=== PATIENT | female | born 1935 | race Caucasian/White ===

== ENCOUNTER 2022-08-10 18:33 | Emergency (ER) | payer MEDICARE, BC, SELFPAY ==
[2022-08-10] VITALS (16 sets, daily range): BP systolic 128–182; BP diastolic 83–109; PULSE 85–97; RESP 18; TEMP 36.3; O2SAT 94–97; BMI 26.6
--- NOTE | 2022-08-10 19:15 | ED.GENADULT ---
HPI - General Adult General Time Seen by Provider: 19:15 Date Seen: 08/10/22 Chief complaint: Cough Stated complaint: Covid+ Time Seen by Provider: 08/10/22 19:02 Source: patient and RN notes reviewed Mode of arrival: ambulatory Limitations: no limitations History of Present Illness HPI narrative: Patient is an 86-year-old female coming in with concerns of mucus production, coughing, positivity for COVID. She started with cough and sore throat Sunday night. Sunday morning she tested negative, Sunday night she actually tested positive. She contacted her clinic and they sent in a prescription for Paxil of it. She started this Sunday per her report but she tells me she has only taken 3 doses. That would actually have her starting the medicine yesterday on Sunday. She thinks maybe that this is correct. In any event she has only taken 3 doses, has not taken the evening dose. She has had no fevers with it. She is not short of breath. She admits to postnasal drainage that was problematic even before COVID. It sounds as if she has had some chronic postnasal drainage. She is having difficulty eating due to her sore throat. She is still drinking some. Related Data Previous Rx's Medication Instructions Recorded atenolol 25 mg tablet 25 mg PO QDAY #30 tabs 12/26/21 hydrochlorothiazide 25 mg tablet 25 mg PO QDAY #30 tabs 12/26/21 lisinopril 40 mg tablet 40 mg PO QDAY #30 tabs 12/26/21 pravastatin 20 mg tablet 20 mg PO .HS #30 tabs 01/10/22 Allergies Allergy/AdvReac Type Severity Reaction Status Date / Time Sulfa (Sulfonamide Allergy Severe Verified 08/10/22 18:56 Antibiotics) Review of Systems Status of ROS: Reports: 10 or more systems reviewed and unremarkable except as noted in History and below Narrative: She does tell me that she recently had an EKG and stress test that she believes to have been fine. [facility] Social History Smoking Status: Never smoker Do you use any of these nicotine containing products: None How often do you have a drink containing alcohol: 2-4 times a month AUDIT-C Alcohol total score: 2 Non-prescribed substance use: denies use Exam Const: Vital Signs, click to edit/add: Vital Signs - 24 hr 08/10/22 18:54 08/10/22 19:29 08/10/22 19:17 Temperature 97.3 F L Pulse Rate 91 Pulse Rate [Pulse Oximeter] 96 Respiratory Rate 18 Blood Pressure Blood Pressure [Ri ght Upper Arm] 128/84 Pulse Oximetry 96 96 95 Oxygen Delivery Me thod Room Air 08/10/22 19:46 08/10/22 19:47 08/10/22 19:49 Temperature Pulse Rate 92 97 92 Pulse Rate [Pulse Oximeter] Respiratory Rate Blood Pressure 182/104 H 165/96 H Blood Pressure [Ri ght Upper Arm] Pulse Oximetry 96 97 95 Oxygen Delivery Me thod 08/10/22 19:50 08/10/22 20:00 08/10/22 20:01 Temperature Pulse Rate 93 91 92 Pulse Rate [Pulse Oximeter] Respiratory Rate Blood Pressure 167/109 H Blood Pressure [Ri ght Upper Arm] Pulse Oximetry 96 97 96 Oxygen Delivery Me thod 08/10/22 20:15 08/10/22 20:30 08/10/22 20:32 Temperature Pulse Rate 88 92 95 Pulse Rate [Pulse Oximeter] Respiratory Rate Blood Pressure 155/86 H Blood Pressure [Ri ght Upper Arm] Pulse Oximetry 95 96 96 Oxygen Delivery Me thod 08/10/22 20:45 08/10/22 21:00 08/10/22 21:01 Temperature Pulse Rate 85 89 86 Pulse Rate [Pulse Oximeter] Respiratory Rate Blood Pressure 162/83 H Blood Pressure [Ri ght Upper Arm] Pulse Oximetry 96 96 94 Oxygen Delivery Me thod 08/10/22 21:15 Temperature Pulse Rate 90 Pulse Rate [Pulse Oximeter] Respiratory Rate Blood Pressure Blood Pressure [Ri ght Upper Arm] Pulse Oximetry 96 Oxygen Delivery Me thod Documenting provider has reviewed patient's vital signs: yes Common normals: no apparent distress, average body habitus, oriented x3, no limitations, healthy appearing and alert General appearance: cooperative, comfortable, well kempt and well developed Other: Can hear upper airway mucus. She is still able to speak in complete sentences, no hoarseness that I note. HENMT: Common normals: normocephalic, head/scalp atraumatic, hearing grossly normal bilaterally and external ears normal Head and scalp: normocephalic and atraumatic External ear: external ears normal Eye: Common normals: PERRL, EOMs intact bilaterally, conjunctivae normal and no scleral icterus Conjunctiva: conjunctiva(e) normal Pupil: PERRL Neck & C-Spine: Common normals: full ROM, no lymphadenopathy, supple, no meningeal signs, no JVD and thyroid normal Thyroid: thyroid normal Resp: Common normals: normal respiratory effort, no retractions, no use of accessory muscles and clear to auscultation bilaterally Auscultation: clear to auscultation bilaterally Cardio: Common normals: no JVD, regular rate, regular rhythm, S1 normal heart sound, S2 normal heart sound, no gallops, no clicks and no murmurs Rate: regular rate Rhythm: regular rhythm Heart sounds: S1 normal and S2 normal GI: Common normals: Normal to inspection, nondistended, normoactive bowel sounds present Extremity: Other: No peripheral edema. Neuro: Common normals: oriented x3 Sensorium/orientation: alert Meningeal signs: no meningeal signs Psych: Appearance: well kempt Course Course Hospital Course: She is on pulse oximetry an oxygenating in the mid 90s, 95-96% when I was in with her. I have pointed this out to her that that is reassuring. Her lungs are actually clear. Sounds like she is maybe having more postnasal drainage and mucus from the sinuses. Will check some baseline lab work, get a portable chest x-ray on her. We maybe just need to make some recommendations for symptomatic relief for her. Will ensure stability while she is here with monitoring of her pulse oximetry. Reevaluation(s) Reevaluation #1: Reviewed with Osmel and her whom is now here that her chest x-ray is clear, she show no hypoxia. Her white count is normal. Unfortunately the chemistry analyzer went down and I will not have the rest of her labs back for indefinite amount of time. They are aware that we will contact them if there is anything concerning. She has a nasal spray at home given to her her from her doctor, recommend them trying this. We discussed [id number] throat sprays, lozenges. Her may run to the pharmacy and get this. Baseline I do recommend Tylenol. Time: 21:19 Vital Signs Vital signs: Initial Vital Signs Temperature 97.3 F L 08/10/22 18:54 Temperature Source Temporal Artery Scan 08/10/22 18:54 Pulse Rate 96 08/10/22 18:54 Pulse Rhythm Regular 08/10/22 18:54 Pulse Strength 3+ Normal 08/10/22 18:54 Respiratory Rate 18 08/10/22 18:54 Blood Pressure 128/84 08/10/22 18:54 Blood Pressure Mean 98 08/10/22 18:54 Blood Pressure Position Sitting 08/10/22 18:54 Pulse Oximetry 96 08/10/22 18:54 Oxygen Delivery Method Room Air 08/10/22 18:54 Vital Signs Temperature 97.3 F L 08/10/22 18:54 Pulse Rate 96 08/10/22 18:54 Respiratory Rate 18 08/10/22 18:54 Blood Pressure 128/84 08/10/22 18:54 Pulse Oximetry 96 08/10/22 18:54 Oxygen Delivery Method Room Air 08/10/22 18:54 Temperature 97.3 F L 08/10/22 18:54 Pulse Rate 90 08/10/22 21:15 Respiratory Rate 18 08/10/22 18:54 Blood Pressure 162/83 H 08/10/22 21:01 Pulse Oximetry 96 08/10/22 21:15 Oxygen Delivery Method Room Air 08/10/22 18:54 Medical Decision Making Lab Data Lab results reviewed: Yes I reviewed the patient's lab results Labs: Lab Results 08/10/22 Range/Units 19:38 WBC 8.62 (4.50-11.00) K/uL RBC 4.65 (4.00-5.20) m/uL Hgb 14.6 (12.0-16.0) gm/dL Hct 42.8 (33.0-51.0) % MCV 92 (80-100) fL MCH 31 (26-34) pg MCHC 34 (32-36) gm/dL RDW Coeff of Kaylynn 12.7 (11.5-15.5) % Plt Count 242 (140-440) K/uL Neut % (Auto) 73.7 H (42.0-72.0) % Lymph % (Auto) 16.6 L (20-44) % [place] % (Auto) 8.9 (0.0-11.0) % Eos % (Auto) 0.5 (0.0-7.0) % Baso % (Auto) 0.2 (0.0-3.0) % Neut # (Auto) 6.40 (1.7-7.0) K/uL Lymph # (Auto) 1.40 (0.90-2.90) K/uL [place] # (Auto) 0.80 (0.00-0.90) K/UL Eos # (Auto) 0.04 (0.00-0.50) K/uL Baso # (Auto) 0.02 (0.00-0.30) K/uL Sodium 131 L (135-149) mmol/L Potassium 3.7 (3.6-5.1) mmol/L Chloride 97 (96-114) mmol/L Carbon Dioxide 23 (20-32) mmol/L BUN 16 (7-30) mg/dL Creatinine 0.9 (0.5-1.5) mg/dL Estimated Creat Clear 33.41 Estimated GFR 62 ml/min Glucose 121 H (60-115) mg/dL Calcium 10.4 (8.4-10.6) mg/dL Total Bilirubin 0.7 (0.1-1.5) mg/dL AST 32 (12-35) U/L ALT 22 (4-35) U/L Alkaline Phosphatase 93 (40-150) U/L C-Reactive Protein 6.7 H (0.5-1.0) mg/dL Total Protein 7.8 (6.0-8.3) g/dL Albumin 4.5 (3.3-5.0) g/dL Imaging Data Chest x-ray: Attestation: I have reviewed the pertinent imaging results. My impression: No acute infiltrate or any evidence any COVID pneumonia on my preliminary review. Radiologist's impression: Patient: KHOI HANSON Facility:?[facility] Patient ID:?[id number] Site Patient ID:?[id number]. Site :?[id number] Study:?XRay Chest PORTABLE-08/10/2022 7:48:00 PM Ordering Physician:Melissa Damon Final Report: INDICATION: Cough. COMPARISON: February 22, 2011. TECHNIQUE: Single-view chest radiograph. FINDINGS: Normal cardiomediastinal contours. Clear lungs. No significant pleural effusion or pneumothorax. Impression : No acute cardiopulmonary abnormality. Dictated by Nolan Sosa MD @ 08/10/2022 7:52:07 PM (Electronic Signature) Critical Care Time Critical Care Time Critical Care Time: No Discharge Plan Discharge Clinical Impression: COVID-19 Condition: Stable Instructions: COVID-19 (Coronavirus Disease 2019) (ED) Additional Instructions: Complete the Paxilovid. Can use Tylenol per bottle directions as needed for pain control, this should help your sore throat. Can use sviz-bje-ftgelpc lozenges, Mucinex, nasal steroid spray like Nasacort or Flonase to help with your symptoms. Should you develop increasing difficulty breathing, shortness of breath, chest pain in the context of COVID, do recommend re-evaluation. Activity Level: Activity as Tolerated Prescriptions: No Action lisinopril 40 mg tablet 40 mg PO QDAY Qty: 30 0RF atenolol 25 mg tablet 25 mg PO QDAY Qty: 30 0RF hydrochlorothiazide 25 mg tablet 25 mg PO QDAY Qty: 30 0RF pravastatin 20 mg tablet 20 mg PO .HS Qty: 30 0RF Follow Up/Referrals: Roseanne Copeland MD [Primary Care Provider] - Stand Alone Forms: [employer] Info Instructions
--- NOTE | 2022-08-10 19:23 | CRLHL7_ITS ---
For Patients: As a result of the Century Cures Act, medical imaging exams and procedure reports are released immediately into your electronic medical record. You may view this report before your referring provider. If you have questions, please contact your health care provider. INDICATION: Cough. COMPARISON: February 22, 2011. TECHNIQUE: Single-view chest radiograph. FINDINGS: Normal cardiomediastinal contours. Clear lungs. No significant pleural effusion or pneumothorax. Impression : No acute cardiopulmonary abnormality. Dictated by Nolan Sosa MD @ 08/10/2022 7:52:07 PM (Electronically Signed)
[2022-08-10 19:46] LABS: Basophils Absolute Auto 0.02 K/uL (0.00-0.30); Basophils Percent Auto 0.2 % (0.0-3.0); Eosinophils Absolute Auto 0.04 K/uL (0.00-0.50); Eosinophils Percent Auto 0.5 % (0.0-7.0); Hematocrit 42.8 % (33.0-51.0); Hemoglobin* 14.6 gm/dL (12.0-16.0); Immature Granulocytes Abs Auto 0.01 K/uL (0.00-0.30); Immature Granulocytes Pct Auto 0.1 %; Lymphocytes Percent Auto 16.6 % (20-44); Mean Corpuscular HGB Conc 34 gm/dL (32-36); Mean Corpuscular Hemoglobin 31 pg (26-34); Mean Corpuscular Volume 92 fL (80-100); Monocytes Percent Auto 8.9 % (0.0-11.0); Neutrophils Percent Auto 73.7 % (42.0-72.0); Platelet Count* 242 K/uL (140-440); RDW Coefficient of Variation % 12.7 % (11.5-15.5); Red Blood Count 4.65 m/uL (4.00-5.20); White Blood Count* 8.62 K/uL (4.50-11.00)
[2022-08-10 19:57] LABS: Slide Review Reflex No
[2022-08-10 21:41] LABS: Albumin* 4.5 g/dL (3.3-5.0); Chloride* 97 mmol/L (96-114)
[2022-08-10 21:42] LABS: Potassium* 3.7 mmol/L (3.6-5.1); Sodium* 131 mmol/L (135-149)
[2022-08-10 21:43] LABS: Creatinine* 0.9 mg/dL (0.5-1.5); Est. Creatinine Clearance* 33.41; Estimated Glomerular Filt Rate 62 ml/min
[2022-08-10 21:44] LABS: Alanine Aminotransferase* 22 U/L (4-35); Alkaline Phosphatase* 93 U/L (40-150); Aspartate Amino Transferase* 32 U/L (12-35); Bilirubin Total* 0.7 mg/dL (0.1-1.5); Blood Urea Nitrogen* 16 mg/dL (7-30); Carbon Dioxide* 23 mmol/L (20-32); Glucose* 121 mg/dL (60-115); Total Protein* 7.8 g/dL (6.0-8.3)
[2022-08-10 21:45] LABS: Calcium* 10.4 mg/dL (8.4-10.6)
[2022-08-10 21:47] LABS: C Reactive Protein* 6.7 mg/dL (0.5-1.0)
== END 2022-08-10 21:32 | disposition home or self-care (01) ==
PROVIDERS: Emergency Provider Family Medicine; PCP Internal Medicine
DX: U07.1 COVID-19 (principal)
CPT/HCPCS: 36415; 71045; 80053; 85025; 86140; 94761; 99283; 99284

== ENCOUNTER 2022-12-06 07:58 | Outpatient (CLI) | payer MEDICARE, BC, SELFPAY ==
--- NOTE | 2022-12-06 08:15 | CRLHL7_ITS ---
For Patients: As a result of the Century Cures Act, medical imaging exams and procedure reports are released immediately into your electronic medical record. You may view this report before your referring provider. If you have questions, please contact your health care provider. INDICATION: Low back pain. COMPARISON: 09/27/2021. TECHNIQUE: Sagittal T1, T2, and STIR sequences. Axial T1 and T2 weighted sequences. FINDINGS: Degenerative grade 1 anterolisthesis of L4 on L5 measures approximately 5 mm. Otherwise, normal alignment. No fractures. No vertebral body loss of height. No evidence injury. No suspicious osseous lesions. Normal conus terminates at L1. T12-L1 L1-2: No spinal canal neural foraminal narrowing. L2-3: Disc degeneration. No narrowing of the spinal canal. Mild narrowing of bilateral foramina. L3-4: Disc degeneration. Diffuse disc bulge. No narrowing of spinal canal. Facet arthropathy results in mild right and [id number]-[id number] left neural foraminal narrowing. Moderate facet arthropathy. L4-5: Grade 1 anterolisthesis. Disc degeneration and unroofed posterior disc bulge. Mild narrowing of spinal canal. No neural foraminal narrowing. Moderate facet arthropathy. L5-S1: Disc degeneration. No narrowing of spinal canal. No impingement of the traversing S1 nerve roots. No neural foraminal narrowing. Mild facet arthropathy. Degenerative changes of the SI joints. IMPRESSION: 1. Degenerative anterolisthesis of L4 on L5. Otherwise normal alignment. No fractures 2. Lumbar spondylosis. 3. At L3-4, mild right and [id number] left neural foraminal narrowing. 4. At L4-5, mild narrowing of spinal canal 5. No spinal canal or neural foraminal narrowing at remaining levels Dictated by Lester Camilo MD @ 12/07/2022 9:29:12 AM (Electronically Signed)
== END 2022-12-06 07:59 | disposition home or self-care (01) ==
LOC: MRI 07:59
PROVIDERS: PCP Family Medicine; Visit Provider Orthopaedic Surgery
DX: M54.50 Low back pain, unspecified (principal); M47.896 Other spondylosis, lumbar region; M51.26 Other intervertebral disc displacement, lumbar region
CPT/HCPCS: 72148

== ENCOUNTER 2023-03-11 08:14 | Emergency (ER) | payer MEDICARE, BC, SELFPAY ==
[2023-03-11] VITALS (14 sets, daily range): BP systolic 144–193; BP diastolic 82–116; PULSE 70–93; RESP 18; TEMP 36.2; O2SAT 90–99; BMI 26.6
--- NOTE | 2023-03-11 08:54 | CRLHL7_ITS ---
For Patients: As a result of the Century Cures Act, medical imaging exams and procedure reports are released immediately into your electronic medical record. You may view this report before your referring provider. If you have questions, please contact your health care provider. INDICATION: Fluid retention.. TECHNIQUE: Ultrasound venous duplex bilateral lower extremity. Compression venous exam was performed using montoya-scale, color Doppler, and spectral Doppler analysis. COMPARISON: None. FINDINGS: Deep veins: Sonographic imaging demonstrates the bilateral common femoral, deep femoral, superficial femoral, popliteal, peroneal, and pposterior tibial veins to be fully compressible with normal color Doppler blood flow. Superficial veins: Greater saphenous vein is fully compressible. No popliteal cyst. IMPRESSION: No sign of lower extremity deep venous thrombosis. Dictated by Zora Andrews MD @ 03/11/2023 11:06:38 AM (Electronically Signed)
--- NOTE | 2023-03-11 08:54 | CRLHL7_ITS ---
For Patients: As a result of the Cures Act, medical imaging exams and procedure reports are released immediately into your electronic medical record. You may view this report before your referring provider. If you have questions, please contact your health care provider. INDICATION: Fluid retention. TECHNIQUE: Chest 1 views. COMPARISON: 08/10/2022. FINDINGS: Normal cardiomediastinal silhouette and pulmonary vasculature. Atherosclerotic aortic calcifications. Lungs are well inflated and clear. No focal consolidation, pleural effusion, or pneumothorax. No acute osseous abnormality. IMPRESSION: No acute cardiopulmonary abnormality identified. Dictated by Zora Andrews MD @ 03/11/2023 9:36:24 AM (Electronically Signed)
--- NOTE | 2023-03-11 08:55 | ED_ITS ---
HPI - General Adult General Time Seen by Provider: 08:55 Date Seen: 03/11/23 Chief complaint: Lower Extremity Swelling Stated complaint: swelling in legs Time Seen by Provider: 03/11/23 08:18 Source: patient Mode of arrival: ambulatory Limitations: no limitations History of Present Illness HPI narrative: Patient is a 87 year white female without any cardiac history other than essential hypertension and hyperlipidemia, who presents with lower extremity swelling right greater than left over the last few days. She occasionally gets intermittent swelling her legs and use been a couple of days a goes away, this is last just a little longer. They did take a trip to [place] recently, but did not feel that was an issue. She is not on any blood thinners. She has not had any DVTs or history of congestive heart failure by chart report. Patient does have history of hypertension she is on hydrochlorothiazide atenolol and lisinopril, she also has elevated cholesterol she is on pravastatin. Also takes famotidine. Related Data Home Medications Medication Instructions Recorded Confirmed famotidine 20 mg tablet mg PO 03/11/23 Previous Rx's Medication Instructions Recorded atenolol 25 mg tablet 25 mg PO QDAY #30 tabs 12/26/21 hydrochlorothiazide 25 mg tablet 25 mg PO QDAY #30 tabs 12/26/21 lisinopril 40 mg tablet 40 mg PO QDAY #30 tabs 12/26/21 pravastatin 20 mg tablet 20 mg PO .HS #30 tabs 01/10/22 furosemide 20 mg tablet (Lasix) 20 mg PO DAILY #3 tabs 03/11/23 Allergies Allergy/AdvReac Type Severity Reaction Status Date / Time Sulfa (Sulfonamide Allergy Mild Rash Verified 03/11/23 08:39 Antibiotics) Review of Systems Status of ROS: Reports: 6 or more systems reviewed and unremarkable except as noted in History and below Narrative: Patient is not more short of breath lying down, does not have any dyspnea on exertion. PFSH PFSH Social History Smoking Status: Never smoker Do you use any of these nicotine containing products: None Second hand tobacco smoke exposure: No How often do you have a drink containing alcohol: 2-3 times a week AUDIT-C Alcohol total score: 3 Non-prescribed substance use: denies use Exam Narrative: Exam Narrative: Objective: Patient is very hard of hearing Vital signs show elevated blood pressure 193/116, O2 sat 98% on room air HEENT is unremarkable facial asymmetry neck is supple Chest is clear no rales or wheezing Heart rhythm regular with occasional ectopic beat 2/6 systolic ejection murmur Abdomen benign soft Extremities show trace to 1+ edema in the right pretibial tibial area and douglas there is no warmth erythema, slightly less edema probably just trace on the left lower extremity. Negative Homans sign bilaterally. Good peripheral perfusion noted. Normal neurologic function. Const: Vital Signs, click to edit/add: Vital Signs - 24 hr 03/11/23 08:34 03/11/23 08:44 03/11/23 08:45 Temperature 97.2 F L Pulse Rate 75 78 Pulse Rate [Pulse Oximeter] 85 Respiratory Rate 18 Blood Pressure Blood Pressure [Ri ght Upper Arm] 193/116 H Pulse Oximetry 98 98 96 Oxygen Delivery Me thod Room Air Room Air 03/11/23 08:54 03/11/23 09:00 03/11/23 09:02 Temperature Pulse Rate 72 Pulse Rate [Pulse Oximeter] Respiratory Rate Blood Pressure 144/110 H Blood Pressure [Ri ght Upper Arm] Pulse Oximetry 98 97 Oxygen Delivery Me thod 03/11/23 09:15 03/11/23 09:30 03/11/23 09:35 Temperature Pulse Rate 70 83 74 Pulse Rate [Pulse Oximeter] Respiratory Rate Blood Pressure Blood Pressure [Ri ght Upper Arm] Pulse Oximetry 99 90 99 Oxygen Delivery Me thod Room Air 03/11/23 09:45 03/11/23 10:03 03/11/23 10:15 Temperature Pulse Rate 70 84 93 Pulse Rate [Pulse Oximeter] Respiratory Rate Blood Pressure Blood Pressure [Ri ght Upper Arm] Pulse Oximetry 97 95 Oxygen Delivery Me thod 03/11/23 10:30 03/11/23 10:32 Temperature Pulse Rate 72 74 Pulse Rate [Pulse Oximeter] Respiratory Rate Blood Pressure 159/82 H Blood Pressure [Ri ght Upper Arm] Pulse Oximetry 96 97 Oxygen Delivery Me thod Course Vital Signs Vital signs: Initial Vital Signs Temperature 97.2 F L 03/11/23 08:34 Temperature Source Temporal Artery Scan 03/11/23 08:34 Pulse Rate 85 03/11/23 08:34 Respiratory Rate 18 03/11/23 08:34 Blood Pressure 193/116 H 03/11/23 08:34 Blood Pressure Mean 141 H 03/11/23 08:34 Blood Pressure Position Supine 03/11/23 08:34 Pulse Oximetry 98 03/11/23 08:34 Oxygen Delivery Method Room Air 03/11/23 08:34 Vital Signs Temperature 97.2 F L 03/11/23 08:34 Pulse Rate 85 03/11/23 08:34 Respiratory Rate 18 03/11/23 08:34 Blood Pressure 193/116 H 03/11/23 08:34 Pulse Oximetry 98 03/11/23 08:34 Oxygen Delivery Method Room Air 03/11/23 08:34 Temperature 97.2 F L 03/11/23 08:34 Pulse Rate 74 03/11/23 10:32 Respiratory Rate 18 03/11/23 08:34 Blood Pressure 159/82 H 03/11/23 10:32 Pulse Oximetry 97 03/11/23 10:32 Oxygen Delivery Method Room Air 03/11/23 09:30 Medical Decision Making MDM Narrative Medical decision making narrative: [age] white female with primary symptoms of just lower extremity swelling right greater than left. Some recent travel but not of much duration. I think checking ultrasounds of her legs would be appropriate as well as a chest x-ray to rule out interstitial fluid, a proBNP, troponin, EKG cardiac cardiac monitor technician. I suspect the patient would benefit from some IV Lasix will do that 40 mg IV. Will check her electrolytes and labs. Disposition pending findings above. Addendum 10:46 a.m.. The patient's chest x-ray looks unremarkable by my read, EKG looks reassuring with normal sinus rhythm. This is again by my read. The patient's ultrasound of her lower extremities looks negative for clot or DVT. She does have a borderline elevated proBNP in the intermediate range. I think a couple of days of diuretic would be appropriate and will give her Lasix 20 mg daily to can add to her regular medications for 3 days. She should follow up with regular doctor at that time. Return to ED sooner problems or concerns, elevate legs, avoid salt intake. Lab Data Labs: Lab Results 03/11/23 03/11/23 Range/Units 09:15 09:15 WBC 8.66 (4.50-11.00) K/uL RBC 4.23 (4.00-5.20) m/uL Hgb 13.3 (12.0-16.0) gm/dL Hct 40.4 (33.0-51.0) % MCV 96 (80-100) fL MCH 31 (26-34) pg MCHC 33 (32-36) gm/dL RDW Coeff of Kaylynn 13.0 (11.5-15.5) % Plt Count 294 (140-440) K/uL Neut % (Auto) 75.4 H (42.0-72.0) % Lymph % (Auto) 14.4 L (20-44) % [place] % (Auto) 7.5 (0.0-11.0) % Eos % (Auto) 2.3 (0.0-7.0) % Baso % (Auto) 0.3 (0.0-3.0) % Neut # (Auto) 6.50 (1.7-7.0) K/uL Lymph # (Auto) 1.20 (0.90-2.90) K/uL [place] # (Auto) 0.60 (0.00-0.90) K/UL Eos # (Auto) 0.20 (0.00-0.50) K/uL Baso # (Auto) 0.03 (0.00-0.30) K/uL Abs Immat Gran (auto) 0.01 (0.00-0.30) K/uL Imm/Tot Granulo (auto) 0.1 % INR 0.92 (0.91-1.10) Sodium 132 L (135-149) mmol/L Potassium 4.0 (3.6-5.1) mmol/L Chloride 100 (96-114) mmol/L Carbon Dioxide 23 (20-32) mmol/L Anion Gap 9 (7-15) mEq/L BUN 12 (7-30) mg/dL Creatinine 0.7 (0.5-1.5) mg/dL Estimated Creat Clear 32.79 Estimated GFR 84 ml/min Glucose 90 (60-115) mg/dL Calcium 9.9 (8.4-10.6) mg/dL Total Bilirubin 1.0 (0.1-1.5) mg/dL Direct Bilirubin 0.0 (0.0-0.5) mg/dL AST 28 (12-35) U/L ALT 11 (4-35) U/L Alkaline Phosphatase 58 (40-150) U/L Troponin I < 0.01 L Cancelled (0.01-0.04) ng/mL C-Reactive Protein 1.9 H (0.5-1.0) mg/dL NT-Pro-B Natriuret Pep 709 pg/mL Total Protein 6.6 (6.0-8.3) g/dL Albumin 4.0 (3.3-5.0) g/dL Discharge Plan Discharge Clinical Impression: Swelling of both lower extremities Patient Disposition: Home w/ Parent or Adult Condition: Stable Additional Instructions: Continue same medications at home and we will add Lasix 1 pill a day for 3 days, then I would like you to see your regular doctor. Avoid salt intake as this may increase edema in your legs. There were no clots present in your legs and your blood work looked reasonable. Your EKG and heart studies look normal as well. Return to ED sooner as needed Prescriptions: New furosemide [Lasix] 20 mg tablet 20 mg PO DAILY Qty: 3 2RF No Action famotidine 20 mg tablet PO lisinopril 40 mg tablet 40 mg PO QDAY Qty: 30 0RF atenolol 25 mg tablet 25 mg PO QDAY Qty: 30 0RF hydrochlorothiazide 25 mg tablet 25 mg PO QDAY Qty: 30 0RF pravastatin 20 mg tablet 20 mg PO .HS Qty: 30 0RF Follow Up/Referrals: Kevin Mccoy MD [Primary Care Provider] - Stand Alone Forms: [employer] Info Instructions
[2023-03-11] MEDS: FUROSEMIDE 10 MG/ML inj 40 MG IV (09:15)
[2023-03-11 09:50] LABS: Basophils Absolute Auto 0.03 K/uL (0.00-0.30); Basophils Percent Auto 0.3 % (0.0-3.0); Chloride* 100 mmol/L (96-114); Eosinophils Percent Auto 2.3 % (0.0-7.0); Hematocrit 40.4 % (33.0-51.0); Hemoglobin* 13.3 gm/dL (12.0-16.0); Immature Granulocytes Abs Auto 0.01 K/uL (0.00-0.30); Immature Granulocytes Pct Auto 0.1 %; Lymphocytes Percent Auto 14.4 % (20-44); Mean Corpuscular HGB Conc 33 gm/dL (32-36); Mean Corpuscular Hemoglobin 31 pg (26-34); Mean Corpuscular Volume 96 fL (80-100); Monocytes Percent Auto 7.5 % (0.0-11.0); Neutrophils Percent Auto 75.4 % (42.0-72.0); Platelet Count* 294 K/uL (140-440); Red Blood Count 4.23 m/uL (4.00-5.20); Sodium* 132 mmol/L (135-149); White Blood Count* 8.66 K/uL (4.50-11.00)
[2023-03-11 09:53] LABS: Alanine Aminotransferase* 11 U/L (4-35); Alkaline Phosphatase* 58 U/L (40-150); Anion Gap 9 mEq/L (7-15); Aspartate Amino Transferase* 28 U/L (12-35); Blood Urea Nitrogen* 12 mg/dL (7-30); Carbon Dioxide* 23 mmol/L (20-32); Creatinine* 0.7 mg/dL (0.5-1.5); Est. Creatinine Clearance* 32.79; Estimated Glomerular Filt Rate 84 ml/min; Glucose* 90 mg/dL (60-115); Slide Review Reflex No; Total Protein* 6.6 g/dL (6.0-8.3)
[2023-03-11 09:54] LABS: Calcium* 9.9 mg/dL (8.4-10.6)
[2023-03-11 09:56] LABS: C Reactive Protein* 1.9 mg/dL (0.5-1.0)
[2023-03-11 10:06] LABS: NT Pro B Type NatriureticPept* 709 pg/mL; Troponin I* < 0.01 ng/mL (0.01-0.04)
[2023-03-11 10:18] LABS: INR 0.92 (0.91-1.10)
== END 2023-03-11 09:15 | disposition home or self-care (01) ==
PROVIDERS: Emergency Provider Family Medicine; PCP Family Medicine
DX: R60.9 Edema, unspecified (principal)
CPT/HCPCS: 36415; 71045; 80048; 80076; 83880; 84484; 85025; 85610; 86140; 93005; 93970; 94761; 96374; 99284; 99285; J1940

== ENCOUNTER 2023-03-14 06:42 | Emergency (ER) | payer MEDICARE, BC, SELFPAY ==
[2023-03-14 06:49] VITALS: BP 157/108; PULSE 120; RESP 16; TEMP 36.4; O2SAT 97
--- NOTE | 2023-03-14 07:13 | ED.GENADULT ---
HPI - General Adult General Chief complaint: Extremity Pain/Injury, Lower Stated complaint: R foot pain Time Seen by Provider: 03/14/23 07:12 History of Present Illness HPI narrative: starting Sunday with sore R foot on Sunday, was seen on for foot pain, pain has been getting worse each day and mobility has declined. denies fall or injury to foot. states she can 't walk on it due to pain. able to move toes 87-year-old woman here with complaint of right foot pain. She does not recall any particular injury. Was seen actually 3 days ago for foot pain and swelling. Initiated on Lasix. She does not typically have peripheral edema. No known heart failure. Was screened at that time also for DVT with ultrasound which was negative; this was done bilaterally. Imaging was remarkable only for a CRP of 1.9 my review of record. X-ray was also done of the chest which was unremarkable for fluid collection or evidence of heart failure. At this point is becoming increasingly painful to walk. No chest pain or shortness of breath. No fever. She does not recall any trauma. She had though earlier in the week been playing golf ambulating more. It is her understanding that gout was ?ruled out?. Does have a history of PMR. Related Data Home Medications Medication Instructions Recorded Confirmed famotidine 20 mg tablet mg PO 03/11/23 03/20/23 Previous Rx's Medication Instructions Recorded atenolol 25 mg tablet 25 mg PO QDAY #30 tabs 12/26/21 hydrochlorothiazide 25 mg tablet 25 mg PO QDAY #30 tabs 12/26/21 lisinopril 40 mg tablet 40 mg PO QDAY #30 tabs 12/26/21 pravastatin 20 mg tablet 20 mg PO .HS #30 tabs 01/10/22 celecoxib 100 mg capsule (Celebrex) 100 mg PO BID PRN pain #30 caps 03/14/23 Allergies Allergy/AdvReac Type Severity Reaction Status Date / Time Sulfa (Sulfonamide Allergy Mild Rash Verified 03/20/23 09:18 Antibiotics) Review of Systems Status of ROS: Reports: 6 or more systems reviewed and unremarkable except as noted in History and below [facility] Medical History Sprain of right wrist ?S63.501A - Unspecified sprain of right wrist, initial encounter (ICD-10) Sprain of left wrist ?S63.502A - Unspecified sprain of left wrist, initial encounter (ICD-10) Mild cognitive impairment (2020) ?G31.84 - Mild cognitive impairment of uncertain or unknown etiology (ICD-10) Irritable bowel syndrome ?K58.9 - Irritable bowel syndrome without diarrhea (ICD-10) Gout ?M10.9 - Gout, unspecified (ICD-10) Pain ?R52 - Pain, unspecified (ICD-10) Adenomatous polyp of colon ?D12.6 - Benign neoplasm of colon, unspecified (ICD-10) History of polymyalgia rheumatica ?Z87.39 - Personal history of other diseases of the musculoskeletal system and connective tissue (ICD-10) Polymyalgia ?M35.3 - Polymyalgia rheumatica (ICD-10) Spondylolisthesis at L4-L5 level ?M43.16 - Spondylolisthesis, lumbar region (ICD-10) Lumbar degenerative disc disease ?M51.36 - Other intervertebral disc degeneration, lumbar region (ICD-10) Scoliosis ?M41.9 - Scoliosis, unspecified (ICD-10) Osteoarthritis of right hip ?M16.11 - Unilateral primary osteoarthritis, right hip (ICD-10) Osteoarthritis of left hip ?M16.12 - Unilateral primary osteoarthritis, left hip (ICD-10) Osteoarthritis of left knee ?M17.12 - Unilateral primary osteoarthritis, left knee (ICD-10) Surgical History Status post blepharoplasty of both eyes (11/2010) ?Z98.890 - Other specified postprocedural states (ICD-10) History of dilation and curettage (2013) ?Z98.890 - Other specified postprocedural states (ICD-10) History of carpal tunnel surgery (07/10/19) ?Z98.890 - Other specified postprocedural states (ICD-10) History of bilateral cataract extraction (~08/2018) ?Z98.41 - Cataract extraction status, right eye (ICD-10) ?Z98.42 - Cataract extraction status, left eye (ICD-10) S/P ORIF (open reduction internal fixation) fracture (05/05/09) ?Z98.890 - Other specified postprocedural states (ICD-10) ?Z87.81 - Personal history of (healed) traumatic fracture (ICD-10) Social History Smoking Status: Never smoker Do you use any of these nicotine containing products: None Second hand tobacco smoke exposure: No How often do you have a drink containing alcohol: 2-3 times a week AUDIT-C Alcohol total score: 3 Non-prescribed substance use: denies use Exam Narrative: Exam Narrative: Very pleasant. NAD. Breathing easily. Hard of hearing. Skin is warm and dry. Lower extremities with 2+ edema starting at the right ankle and going distal in the foot. She is particularly tender to palpation on the plantar surface otherwise diffusely but not really about the ankle. Maybe a little darker on the plantar foot. Generally faintly erythematous with mild calor. This does not look to be cellulitic. Rotation of the ankle does not cause much increase in pain. She is well-perfused, warm. Const: Vital Signs, click to edit/add: Vital Signs - 24 hr 03/14/23 06:49 Temperature 97.6 F Pulse Rate [Pulse Oximeter] 120 H Respiratory Rate 16 Blood Pressure [Ri ght Upper Arm] 157/108 H Pulse Oximetry 97 Oxygen Delivery Me thod Room Air Documenting provider has reviewed patient's vital signs: yes Course Vital Signs Vital signs: Initial Vital Signs Temperature 97.6 F 03/14/23 06:49 Temperature Source Temporal Artery Scan 03/14/23 06:49 Pulse Rate 120 H 03/14/23 06:49 Respiratory Rate 16 03/14/23 06:49 Blood Pressure 157/108 H 03/14/23 06:49 Blood Pressure Mean 124 H 03/14/23 06:49 Blood Pressure Position Supine 03/14/23 06:49 Pulse Oximetry 97 03/14/23 06:49 Oxygen Delivery Method Room Air 03/14/23 06:49 Vital Signs Temperature 97.6 F 03/14/23 06:49 Pulse Rate 120 H 03/14/23 06:49 Respiratory Rate 16 03/14/23 06:49 Blood Pressure 157/108 H 03/14/23 06:49 Pulse Oximetry 97 03/14/23 06:49 Oxygen Delivery Method Room Air 03/14/23 06:49 Temperature 97.6 F 03/14/23 06:49 Pulse Rate 120 H 03/14/23 06:49 Respiratory Rate 16 03/14/23 06:49 Blood Pressure 157/108 H 03/14/23 06:49 Pulse Oximetry 97 03/14/23 06:49 Oxygen Delivery Method Room Air 03/14/23 06:49 Medical Decision Making MDM Narrative Medical decision making narrative: This seems to be more of an inflammatory/arthritic condition. Possible occult fracture. Can repeat CBC and CRP here. Would give ibuprofen and do x-ray. CBCs normal. CRP is notably elevated from last checked from 1.9 and now to 8.1. X-ray by my read looks to show loss of joint space about the metatarsal heads. Radiology over-read below Two views right foot. FINDINGS: BONES: No fracture. Flattening and sclerosis of the head of the 2nd metatarsal consistent with a Freiberg`s infraction. Diffusely low mineralization. No focal bone lesion. JOINT: Normal joint alignment. Joint spaces: Normal. Soft Tissues: Soft tissue swelling around the foot. No foreign body. IMPRESSION: Soft tissue swelling right foot. No radiographic findings of osteomyelitis. However these often take up to 2 weeks to manifest, and are difficult to assess in the setting of underlying osteopenia. I think this finding is consistent with appearance physically that it seems to be more of an inflamed joint issue. I spoke to Orthopedics about this case. Recommending isolation trying to limit flexion of the foot. Limited weight-bearing just due to pain. Will be placed in a walking boot. May need crutches or some other way of resting this foot. Follow-up with orthopedics. Uric acid levels also pending. See patient discharge plan Medical Records Medical records reviewed: Yes I reviewed the patient's medical records Lab Data Lab results reviewed: Yes I reviewed the patient's lab results Labs: Lab Results 03/14/23 03/14/23 Range/Units 07:37 09:50 WBC 9.78 (4.50-11.00) K/uL RBC 4.07 (4.00-5.20) m/uL Hgb 12.8 (12.0-16.0) gm/dL Hct 39.2 (33.0-51.0) % MCV 96 (80-100) fL MCH 31 (26-34) pg MCHC 33 (32-36) gm/dL RDW Coeff of Kaylynn 13.0 (11.5-15.5) % Plt Count 295 (140-440) K/uL Neut % (Auto) 80.5 H (42.0-72.0) % Lymph % (Auto) 11.3 L (20-44) % [place] % (Auto) 6.9 (0.0-11.0) % Eos % (Auto) 1.0 (0.0-7.0) % Baso % (Auto) 0.2 (0.0-3.0) % Neut # (Auto) 7.90 H (1.7-7.0) K/uL Lymph # (Auto) 1.10 (0.90-2.90) K/uL [place] # (Auto) 0.70 (0.00-0.90) K/UL Eos # (Auto) 0.10 (0.00-0.50) K/uL Baso # (Auto) 0.02 (0.00-0.30) K/uL Abs Immat Gran (auto) 0.01 (0.00-0.30) K/uL Imm/Tot Granulo (auto) 0.1 % Uric Acid 10.3 H (2.2-8.4) mg/dL C-Reactive Protein 8.1 H (0.5-1.0) mg/dL Lab Acknowledgement Test Added Discharge Plan Discharge Clinical Impression: Freiberg's infraction, Arthralgia, Metatarsalgia of right foot Patient Disposition: Home w/ Parent or Adult Condition: Stable Additional Instructions: Basically we are trying to limit pain as this is an indication that we are limiting further aggravation. You are welcome to walk on it if the walking boot is able to limit discomfort. You may have to toe-touch. You may have to use crutches or even a kneeling scooter if you are unable to decrease the amount of discomfort you are feeling. Prescribing Hudson for pain. You may take ibuprofen otherwise or Celebrex as prescribed for inflammation. I would hope this also helps your pain. Otherwise elevate for discomfort. You are welcome to continue icing. Orthopedics would like to see you in clinic probably later this week or early next week. Please call [phone]. Dr. Porter is aware of your case. Return for uncontrolled pain, marked increase in redness and heat and swelling, fever. Stop furosemide if you have not already. Prescriptions for walker and wheelchair as needed. Prescriptions: New celecoxib [Celebrex] 100 mg capsule 100 mg PO BID PRN (Reason: pain) Qty: 30 0RF No Action famotidine 20 mg tablet PO lisinopril 40 mg tablet 40 mg PO QDAY Qty: 30 0RF atenolol 25 mg tablet 25 mg PO QDAY Qty: 30 0RF hydrochlorothiazide 25 mg tablet 25 mg PO QDAY Qty: 30 0RF pravastatin 20 mg tablet 20 mg PO .HS Qty: 30 0RF Follow Up/Referrals: Kevin Mccoy MD [Primary Care Provider] - Stand Alone Forms: [employer] Info Instructions
--- NOTE | 2023-03-14 07:29 | CRLHL7_ITS ---
For Patients: As a result of the Century Cures Act, medical imaging exams and procedure reports are released immediately into your electronic medical record. You may view this report before your referring provider. If you have questions, please contact your health care provider. INDICATION: Diffuse redness swelling and pain COMPARISON: None. TECHNIQUE: Two views right foot. FINDINGS: BONES: No fracture. Flattening and sclerosis of the head of the 2nd metatarsal consistent with a Freiberg`s infraction. Diffusely low mineralization. No focal bone lesion. JOINT: Normal joint alignment. Joint spaces: Normal. Soft Tissues: Soft tissue swelling around the foot. No foreign body. IMPRESSION: Soft tissue swelling right foot. No radiographic findings of osteomyelitis. However these often take up to 2 weeks to manifest, and are difficult to assess in the setting of underlying osteopenia. Dictated by Palma Zurita MD @ 03/14/2023 8:20:24 AM (Electronically Signed)
[2023-03-14 07:48] LABS: Basophils Absolute Auto 0.02 K/uL (0.00-0.30); Basophils Percent Auto 0.2 % (0.0-3.0); Hematocrit 39.2 % (33.0-51.0); Hemoglobin* 12.8 gm/dL (12.0-16.0); Immature Granulocytes Abs Auto 0.01 K/uL (0.00-0.30); Immature Granulocytes Pct Auto 0.1 %; Lymphocytes Percent Auto 11.3 % (20-44); Mean Corpuscular HGB Conc 33 gm/dL (32-36); Mean Corpuscular Hemoglobin 31 pg (26-34); Mean Corpuscular Volume 96 fL (80-100); Monocytes Percent Auto 6.9 % (0.0-11.0); Neutrophils Percent Auto 80.5 % (42.0-72.0); Platelet Count* 295 K/uL (140-440); Red Blood Count 4.07 m/uL (4.00-5.20); White Blood Count* 9.78 K/uL (4.50-11.00)
[2023-03-14 07:51] LABS: Slide Review Reflex No
[2023-03-14 08:09] LABS: C Reactive Protein* 8.1 mg/dL (0.5-1.0)
[2023-03-14] MEDS: IBUPROFEN 200 MG TABLET 600 MG PO (08:20)
[2023-03-14 10:29] LABS: Uric Acid* 10.3 mg/dL (2.2-8.4)
== END 2023-03-14 10:39 | disposition home or self-care (01) ==
PROVIDERS: Emergency Provider Family Medicine; PCP Family Medicine
DX: M25.571 Pain in right ankle and joints of right foot (principal); M92.71 Juvenile osteochondrosis of metatarsus, right foot
CPT/HCPCS: 36415; 73620; 84550; 85025; 86140; 99284; A9270

== ENCOUNTER 2023-06-11 14:38 | Outpatient (CLI) | payer MEDICARE, BC, SELFPAY | END 2023-06-11 14:39 | disposition home or self-care (01) | PROVIDERS: PCP Family Medicine; Visit Provider Nurse Practitioner | DX: M10.9 Gout, unspecified (principal); M79.672 Pain in left foot | CPT/HCPCS: 84550; 86140 ==

== ENCOUNTER 2024-02-01 11:20 | Emergency (ER) | payer MEDICARE, BC, SELFPAY ==
[2024-02-01 11:36] VITALS: BP 200/75; PULSE 77; RESP 16; TEMP 35.9; O2SAT 99; BMI 27.3
[2024-02-01 13:59] VITALS: BP 178/93; PULSE 71; PULSE 73; RESP 16; O2SAT 91; O2SAT 98
[2024-02-01 14:00] VITALS: PULSE 59; O2SAT 98
[2024-02-01 14:02] VITALS: BP 198/104; PULSE 73; O2SAT 97
--- NOTE | 2024-02-01 14:28 | ED_ITS ---
HPI - Arrhythmia/Palpitations General Chief Complaint: Arrhythmia/Palpitations Stated Complaint: Chest flutter Time Seen by Provider: 02/01/24 14:09 History of Present Illness HPI narrative: This 88-year-old female comes in stating that she feels some palpitations typically in the morning over the past week or 2. She does not report any chest pain nor does she report any nausea, vomiting, lightheadedness, shortness of breath, diaphoresis, or exercise intolerance. She states that she did have a normal stress test about a year ago and had a checkup less than a month ago with normal results. She does take atenolol, lisinopril, and hydrochlorothiazide and states that she has been on these medicines for decades. Related Data Home Medications ?Medication ?Instructions ?Recorded ?Confirmed famotidine 20 mg tablet mg PO 03/11/23 12/06/23 Previous Rx's ?Medication ?Instructions ?Recorded atenolol 25 mg tablet 25 mg PO QDAY #30 tabs 12/26/21 hydrochlorothiazide 25 mg tablet 25 mg PO QDAY #30 tabs 12/26/21 lisinopril 40 mg tablet 40 mg PO QDAY #30 tabs 12/26/21 pravastatin 20 mg tablet 20 mg PO .HS #30 tabs 01/10/22 prednisone 10 mg tablet 10 mg PO DIRECTED #24 tabs 06/12/23 Allergies Allergy/AdvReac Type Severity Reaction Status Date / Time Sulfa (Sulfonamide Allergy Mild Rash Verified 12/06/23 12:53 Antibiotics) Review of Systems Status of ROS: Reports: 10 or more systems reviewed and unremarkable except as noted in History and below Narrative: Constitutional: No fevers, no weight gain or loss. Eyes: No discharge. No vision changes. HENT: No congestion, no sore throat, no ear pain. Cardiovascular: No chest pain. Palpitations as detailed above. Respiratory: No shortness of breath, no wheezes, no cough. Gastrointestinal: No abdominal pain, no vomiting, no diarrhea. Genitourinary: No dysuria, no hematuria. Musculoskeletal: Normal range of motion. Skin: No rashes, no pruritis. Neurological: No dizziness, weakness, sensory change, speech change. Endo/Heme/Allergies: No bruising or bleeding. No polydipsia. Pysch: no suicidality, no anxiety, no insomnia. All other systems reviewed and are negative. [facility] Medical History Sprain of right wrist ?S63.501A - Unspecified sprain of right wrist, initial encounter (ICD-10) Sprain of left wrist ?S63.502A - Unspecified sprain of left wrist, initial encounter (ICD-10) Mild cognitive impairment (2020) ?G31.84 - Mild cognitive impairment of uncertain or unknown etiology (ICD-10) Irritable bowel syndrome ?K58.9 - Irritable bowel syndrome without diarrhea (ICD-10) Gout ?M10.9 - Gout, unspecified (ICD-10) Pain ?R52 - Pain, unspecified (ICD-10) Adenomatous polyp of colon ?D12.6 - Benign neoplasm of colon, unspecified (ICD-10) History of polymyalgia rheumatica ?Z87.39 - Personal history of other diseases of the musculoskeletal system and connective tissue (ICD-10) Polymyalgia ?M35.3 - Polymyalgia rheumatica (ICD-10) Spondylolisthesis at L4-L5 level ?M43.16 - Spondylolisthesis, lumbar region (ICD-10) Lumbar degenerative disc disease ?M51.36 - Other intervertebral disc degeneration, lumbar region (ICD-10) Scoliosis ?M41.9 - Scoliosis, unspecified (ICD-10) Osteoarthritis of right hip ?M16.11 - Unilateral primary osteoarthritis, right hip (ICD-10) Osteoarthritis of left hip ?M16.12 - Unilateral primary osteoarthritis, left hip (ICD-10) Osteoarthritis of left knee ?M17.12 - Unilateral primary osteoarthritis, left knee (ICD-10) Surgical History Status post blepharoplasty of both eyes (11/2010) ?Z98.890 - Other specified postprocedural states (ICD-10) History of dilation and curettage (2013) ?Z98.890 - Other specified postprocedural states (ICD-10) History of carpal tunnel surgery (07/10/19) ?Z98.890 - Other specified postprocedural states (ICD-10) History of bilateral cataract extraction (~08/2018) ?Z98.41 - Cataract extraction status, right eye (ICD-10) ?Z98.42 - Cataract extraction status, left eye (ICD-10) S/P ORIF (open reduction internal fixation) fracture (05/05/09) ?Z98.890 - Other specified postprocedural states (ICD-10) ?Z87.81 - Personal history of (healed) traumatic fracture (ICD-10) Social History Smoking Status: Never smoker Do you use any of these nicotine containing products: None Second hand tobacco smoke exposure: No How often do you have a drink containing alcohol: never AUDIT-C Alcohol total score: 0 Non-prescribed substance use: denies use Exam Narrative: Exam Narrative: Constitutional: Well-developed, well-nourished, no acute distress. HEENT: Normocephalic, atraumatic. Neck: Normal range of motion. Nontender. Supple. Heart: Regular. No murmurs. Normal rate. Intact distal pulses. Frequent premature beats. Lungs: Clear to auscultation. No chest discomfort. No wheezes, rhonchi, or rales. Abdomen: Normal bowel sounds. Nontender. No rebound tenderness. Genitalia: Deferred. Back: No midline tenderness. Normal range of motion. Extremities: Normal range of motion. No injury. Skin: Intact. No rash. Warm. No erythema or pallor. Neurologic: No altered sensation. No weakness. Alert and oriented. Psychiatric: No suicidality. No anxiety or depression. No insomnia. Nursing notes and vitals signs are reviewed. Const: Vital Signs, click to edit/add: Vital Signs - 24 hr 02/01/24 11:36 02/01/24 13:59 Temperature 96.7 F L Pulse Rate [Pulse Oximeter] 77 71 Respiratory Rate 16 16 Blood Pressure [Ri ght Upper Arm] 200/75 H 178/93 H Pulse Oximetry 99 98 Oxygen Delivery Me thod Room Air Room Air Course Vital Signs Vital signs: Initial Vital Signs Temperature 96.7 F L 02/01/24 11:36 Temperature Source Temporal Artery Scan 02/01/24 11:36 Pulse Rate 77 02/01/24 11:36 Respiratory Rate 16 02/01/24 11:36 Blood Pressure 200/75 H 09/13/24 11:36 Blood Pressure Mean 116 H 02/01/24 11:36 Blood Pressure Position Sitting 02/01/24 11:36 Pulse Oximetry 99 02/01/24 11:36 Oxygen Delivery Method Room Air 02/01/24 11:36 Vital Signs Temperature 96.7 F L 02/01/24 11:36 Pulse Rate 77 02/01/24 11:36 Respiratory Rate 16 02/01/24 11:36 Blood Pressure 200/75 H 02/01/24 11:36 Pulse Oximetry 99 02/01/24 11:36 Oxygen Delivery Method Room Air 02/01/24 11:36 Temperature 96.7 F L 02/01/24 11:36 Pulse Rate 71 02/01/24 13:59 Respiratory Rate 16 02/01/24 13:59 Blood Pressure 178/93 H 02/01/24 13:59 Pulse Oximetry 98 02/01/24 13:59 Oxygen Delivery Method Room Air 02/01/24 13:59 MDM - Arrhythmia/Palpitations MDM Narrative Medical decision making narrative: This patient comes in stating that she feels normal but does detect some palpitations more often in the morning. An EKG is done here which shows normal sinus rhythm without any premature beats. However on the monitor she is showing more frequent premature ventricular contractions. I explained the mechanism be hind these premature beats and stated that sometimes there are certain triggers but they can occur without any known cause. I did offer further workup including labs and imaging which the patient declined. She is taking atenolol 25 mg daily. She likely has room in her blood pressure to take this medicine twice daily as a trial to see if this may improve her palpitations. I did also discuss various other causes of palpitations or premature beats such as caffeine and poor sleep. The patient is reassured and feels okay to return home. She will follow-up with her primary physician for ongoing planning. ECG Data Attestation: I personally reviewed and interpreted this ECG as follows: Interpretation: Normal sinus rhythm. Rate is 77 beats per minute. There are no ST or T-wave abnormalities. Discharge Plan Discharge Clinical Impression: Ventricular premature beats Patient Disposition: Home, Self-Care Condition: Stable Additional Instructions: Continue current plans. Okay to take an extra atenolol tablet daily as a trial to see if this provides some improvement of palpitations. Follow-up with primary physician for ongoing management. Return if worsening. Prescriptions: No Action prednisone 10 mg tablet 10 mg PO DIRECTED Qty: 24 0RF Rx Instructions: Take 30 mg for four days, then 20 mg for four days, then 10 mg for four days. famotidine 20 mg tablet PO lisinopril 40 mg tablet 40 mg PO QDAY Qty: 30 0RF atenolol 25 mg tablet 25 mg PO QDAY Qty: 30 0RF hydrochlorothiazide 25 mg tablet 25 mg PO QDAY Qty: 30 0RF pravastatin 20 mg tablet 20 mg PO .HS Qty: 30 0RF Follow Up/Referrals: Kevin Mccoy MD [Primary Care Provider] - Stand Alone Forms: [employer] Info Instructions
[2024-02-01 14:32] VITALS: PULSE 63; O2SAT 96
[2024-02-01 14:35] VITALS: PULSE 62; O2SAT 97
== END 2024-02-01 14:55 | disposition home or self-care (01) ==
LOC: ED 14:43
PROVIDERS: Emergency Provider Emergency Medicine Emergency Medical Services; PCP Family Medicine
DX: I49.3 Ventricular premature depolarization (principal)
CPT/HCPCS: 93005; 99284

== ENCOUNTER 2024-07-18 10:24 | Emergency (ER) | payer MEDICARE, BC, SELFPAY ==
--- OUTSIDE RECORDS SUMMARY | 2024-07-18 10:29 | XMS_ITS | Encounter Summary ---
Author Organization [facility] Address [address] [place] [address] Care Team Providers Care Top Waddy Name Role Phone Elsewhere, Pcp Primary Care Provider Unavailabl e Encounter Details Date Type Department Care Team (Late st Contact Info) Description 07/20/2015 Historical Ophthalmology [facility] Surya Comer Jr., M.D. 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 - 07/20/2015 3:52 PM CST Eye General HISTORY OF PRESENT ILLNESS CE TODAY-PT STATES VISION IS BLURRLY, BUT GLASSES ARE QUITE OLD. 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, drusen Stable, continue eye vitamin DIAGNOSIS #1 Cataracts, not clinically significant #2 AMD< dry, drusen CDM Reports - EYEGEN Id: [id number] Status: Fnl documented in this encounter Plan of Treatment Not on file documented as of this encounter Visit Diagnoses Not on filedocumented in this encounter Additional Health Concerns Assessment Noted Time PHQ-9 Depression Total Score: 2 04/14/20 15 10:28 AM DATA OPERATIONS LEADER documented as of this encounter Care Teams Top Waddy Relationship Specialty Start Date End Date Elsewhere, Pcp PCP - General Family Medicine 11/11/20 documented as of this encounter
--- OUTSIDE RECORDS SUMMARY | 2024-07-18 10:29 | XMS_ITS | Encounter Summary ---
Author Organization [facility] Address [address] [place] [address] Care Team Providers Care Tester [employer] Name Role Phone Elsewhere, Pcp Primary Care Provider Unavailabl e Encounter Details Date Type Department Care Team (Late st Contact Info) Description 07/13/2016 Historical Ophthalmology [facility] Surya Comer Jr., M.D. 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 - 07/13/2016 10:37 AM CST Eye General CHIEF COMPLAINT Complete Exam HISTORY OF PRESENT ILLNESS Decreased vision when reading small print. IMPRESSION / REPORT / PLAN #1 Early AMD AREDS2, [place] #2 Catarcts Slightly worse MR RTO 1 year DIAGNOSIS #1 Early AMD #2 Catarcts CDM Reports - EYEGEN Id: [id number] Status: Fnl documented in this encounter Plan of Treatment Not on file documented as of this encounter Visit Diagnoses Not on filedocumented in this encounter Additional Health Concerns Assessment Noted Time PHQ-9 Depression Total Score: 2 04/14/20 15 10:28 AM FUR POLISHER documented as of this encounter Care Teams T[employer] Relationship Specialty Start Date End Date Elsewhere, Pcp PCP - General Family Medicine 11/11/20 documented as of this encounter
--- OUTSIDE RECORDS SUMMARY | 2024-07-18 10:29 | XMS_ITS | Encounter Summary ---
Author Organization [facility] Address [address] [place] [address] Care Team Providers Care Sales Expert Home Theater Name Role Phone Elsewhere, Pcp Primary Care Provider Unavailabl e Encounter Details Date Type Department Care Team (Late st Contact Info) Description 07/09/2015 Historical Ophthalmology [facility] Surya Comer Jr., M.D. [address] [address] Social History Tobacco Use Types Packs/Day Years Used Date Smoking Tobacco: Never Assessed Comments Unknown Sex and Gender Information Value Date Recorded Sex Assigned at Not on file Legal Sex Female 7:26 PM PROVIDER RELATIONS REPRESENTATIVE Gender Identity Not on file Sexual Orientation Not on file documented as of this encounter Progress Notes * Surya Comer M.D. - 07/09/2015 9:29 AM CST Eye General CHIEF COMPLAINT Complete Exam HISTORY OF PRESENT ILLNESS Pt rescheduled as it has been under 1 yr since her appt. Rescheduled to July 19. Was not seen today. IMPRESSION / REPORT / PLAN Not seen by MD today. CDM Reports - EYEGEN Id: [id number] Status: Fnl documented in this encounter Plan of Treatment Not on file documented as of this encounter Visit Diagnoses Not on filedocumented in this encounter Additional Health Concerns Assessment Noted Time PHQ-9 Depression Total Score: 2 04/14/20 15 10:28 AM PROVIDER RELATIONS REPRESENTATIVE documented as of this encounter Care Teams Sales Expert Home Theater Relationship Specialty Start Date End Date Elsewhere, Pcp PCP - General Family Medicine 11/11/20 documented as of this encounter
--- OUTSIDE RECORDS SUMMARY | 2024-07-18 10:30 | XMS_ITS | Encounter Summary ---
Author Organization [facility] Address [address] [place] [address] Care Team Providers Care Food Operations Manager Name Role Phone Elsewhere, Pcp Primary Care Provider Unavailabl e Encounter Details Date Type Department Care Team (Late st Contact Info) Description 07/16/2014 Historical Ophthalmology [facility] Surya Comer Jr., M.D. [address] [address] Social History Tobacco Use Types Packs/Day Years Used Date Smoking Tobacco: Never Assessed Comments Unknown Sex and Gender Information Value Date Recorded Sex Assigned at Not on file Legal Sex Female 7:26 PM ELECTRICAL TESTER BATTERY Gender Identity Not on file Sexual Orientation Not on file documented as of this encounter Progress Notes * Surya Comer M.D. - 07/16/2014 9:51 AM CST Eye General CHIEF COMPLAINT Annual Eye Exam HISTORY OF PRESENT ILLNESS Pt states vision pretty good. ROS WNL - heart & lungs good. Polymyalgia - being managed by primary physician & [place] Registered Dietitian. IMPRESSION / REPORT / PLAN A) Mild nsc, stable AMd/Macular Drusen P) RTO 1 year, New MR only if desired CDM Reports - EYEGEN Id: [id number] Status: Fnl documented in this encounter Plan of Treatment Not on file documented as of this encounter Visit Diagnoses Not on filedocumented in this encounter Care Teams Food Operations Manager Relationship Specialty Start Date End Date Elsewhere, Pcp PCP - General Family Medicine 11/11/20 documented as of this encounter
--- OUTSIDE RECORDS SUMMARY | 2024-07-18 10:30 | XMS_ITS | Clinical Summary ---
Author Organization [facility] Address [address] [place] [id number] Care Team Providers Care Marine Rigger Name Role Phone Elsewhere, Pcp Primary Care Provider Unavailabl e Source Comments Patient records contain information from all sites at [facility]. For routine questions regarding patient records, call [phone] during business hours, M-F 8:00 AM - 5:00 PM Central Time. Record requests for emergency care only can be directed to [phone] at any time.[facility] Allergies Active Allergy Reactions Criticality Noted Date Comments Sulfa (Sulfonamide Antibiotics) Rash 09/2013 Medications * This document contains information received from the source organization and may not represent a complete record from that organization. atenoloL (TENORMIN) 25 mg tablet Take 1 tablet by mouth daily. 4 Active aspirin 81 mg chewable tablet Chew 81 mg daily. Active hydroCHLOROthia zide (HYDRODIURIL) 25 mg tablet Take 25 mg by mouth daily. Active ibuprofen (ADVIL,MOTRIN) 400 mg tablet Take 400 mg by mouth 2 (two) times a day. Active lisinopriL (PRINIVIL,ZESTR IL) 40 mg tablet Take 1 tablet by mouth daily. 0 Active pravastatin (PRAVACHOL) 20 mg tablet Take 20 mg by mouth daily. Active cholecalciferol , vitamin D3, 25 mcg (1,000 Unit) tablet Daily Active fluticasone propionate (FLONASE) 50 mcg/actuation nasal spray Administer 2 sprays into nostril(s). 2 Active famotidine (PEPCID) 20 mg tablet 4 Active triamcinolone (KENALOG) 0.1 % cream Apply 1 Application topically 2 (two) times a day. Apply thin layer to rash on right ankle for 2-3 weeks to see if this will improve/resolve 15 g 4 Active olopatadine (Pataday) 0.2 % ophthalmic solution Administer 1 drop into both eyes daily. 5 mL 3 4 Active pregabalin (Lyrica) 25 mg capsule Take 25 mg by mouth. 4 Active amoxicillin (AmoxiL) 500 mg capsule Take 500 mg by mouth every 8 (eight) hours. 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 Treated with ED&C 07/25/23. Should have Full Skin Exam every 6 months x 2 years, then annually if no further skin cancers in that time. Rash 10/26/2023 Overview (10/26/2023): Right medial ankle x 2 months as of 10/26/23. Partial shave biopsy performed. Will treat in the meantime with triamcinolone cream bid x 2-3 weeks to see if this improves and call her with dermatopathology result when those return. Radiculopathy Lumbosacral 02/01/2021 Polymyalgia Rheumatica 04/27/2014 Hypertension 03/08/2011 Overview (10/10/2016): HTN [Hypertension] Encounters Date Type Department Care Team Description 04/30/2024 2:00 PM DRYWALLER Procedure visit Division of Pain Medicine in [place], [place] [address] [place] [address] Lottie Costa M.D. Primary Osteoarthritis Knee Bilateral 04/22/2024 12:29 PM DRYWALLER - 04/22/2024 11:59 PM DRYWALLER Hospital Encounter Department of Radiology, [facility], in [place], [place] [address] [place] [address] Lottie Costa M.D. Primary Osteoarthritis Knee Bilateral Discharge Disposition: Home or Self Care 04/22/2024 10:45 AM DRYWALLER Comprehensive Visit Division of Pain Medicine in [place], [place] [address] [place] [address] Trinh Michaud APRN, C.N.P., M.S.N. Primary Osteoarthritis Knee Bilateral (Primary Dx) from Last 3 Months Immunizations Immunization Administration Dates Next Due DT, Pediatric 11/27/2003 Influenza, Unspecified 04/14/2015,2013,03/19/2013,2009 PCV13 04/14/2015 PPSV23 09/18/2001 SARS-COV-2 (COVID-19) - PFIZ ER (Discontinued)(12 years or older) 07/27/2020,07/01/2020 Tdap 04/14/2015 Family History Medical History Relation Name Comments Glaucoma Mother Hypertension Sister Relation Name Status Comments Mother Sister Social History Tobacco Use Types Packs/Day Years Used Date Smoking Tobacco: Never Smokeless Tobacco: Never Tobacco Cessation:Counseling Given: Not Answered Nutrition Answer Date Recorded Nutrition: EVOO Fat Source 13 02/02 Nutrition: Servings of Fruits/Vegetables per Day Not on file 02/03/2020 Dental Answer Date Recorded Dental: Regular Dentist Unknown 07/17/19 21 Comments No Sex and Gender Information Value Date Recorded Sex Assigned at Not on file Legal Sex Female 7:26 PM DRYWALLER Gender Identity Not on file Sexual Orientation Not on file Last Filed Vital Signs Vital Sign Reading Time Taken Comments Blood Pressure 180/85 04/22/2024 10:30 AM DRYWALLER Pulse 73 04/22/2024 10:30 AM DRYWALLER Temperature 36.8 C (98.2 F) 02/08/2021 1:15 PM CDT Respiratory Rate 16 02/01/2016 1:20 PM CDT Oxygen Saturation 98% 02/08/2021 2:02 PM CDT Inhaled Oxygen Concentration - - Weight 72.4 kg (159 lb 9.8 oz) 04/22/2024 10:30 AM DRYWALLER Height 162 cm (5' 3.78) 04/22/2024 10:30 AM DRYWALLER Body Mass Index 27.59 04/22/2024 10:30 AM DRYWALLER Plan of Treatment Health Maintenance Due Date Last Done Comments Influenza Vaccine (#1) 2024 , 03/27/2022, 04/05/2021, Additional history exists Depression Screening (Annual PHQ-2) 05/21/2024 Fall Risk Screen (Annual) 05/21/2024 COVID-19 Vaccine ( season) 2024 03/31/2024, 04/03/2023, 11/24/2022, Additional history exists Creatinine Level (Kidney Function Test) 12/18/2024 12/19/2023, 11/24/2022, 06/13/2022, Additional history exists Potassium Level 12/18/2024 12/19/2023, 07/0 11/2022, 06/13/2022, Additional history exists Sodium Level 12/18/2024 12/19/2023, 07/0 11/2022, 06/13/2022, Additional history exists DTaP,Tdap,and Td Vaccines (3 - Td or Tdap) 04/14/2025 04/14/2015, 11/27/2003 Zoster Vaccines Completed 12/11/2018, 03/0 12/2018, 10/05/2008 RSV vaccine - (32-36 weeks) or 60+ years Completed 05/29/2023 Pneumococcal vaccine (50+ years) Completed 12/19/2023, 12/11/2018, 04/14/2015, Additional history exists IPV Vaccines Aged Out No longer eligi ble based on patient's age to complete this topic Medical Devices Implanted Type Area Hold Worker Device Identifier Shelf Expiration Date Model / Serial / Lot Hardware E.G. Pins/Screws/R ods Hardware e.g. pins/screws/ rods Left: Ankle Ocular Lens Ocular Lens Bilateral: Cornea Procedures Procedure Name Priority Date/Time Associated Diagnosis Comments NE ARTHCS ASP/INJ MJR JT W US Routine 04/30/2024 2:00 PM DRYWALLER Primary Osteoarthritis Knee Bilateral DX KNEE BILATERAL 2 VIEW RAD - Routine (most inpatients and all outpatients) 04/22/2024 1:14 PM DRYWALLER Primary Osteoarthritis Knee Bilateral BASIC METABOLIC PANEL, S/P Routine 04/14/2015 11:13 AM DRYWALLER from Last 3 Months or Most Recently Relevant to Health Maintenance Results * NE ARTHCS ASP/INJ MJR JT W US (04/30/2024 2:00 PM DRYWALLER) Narrative Lottie Costa M.D. - 04/30/2024 2:00 PM DRYWALLER Lottie Costa M.D. 04/30/2024 2:19 PM Knee site- L knee joint Performed by: Lottie Costa M.D. Authorized by: Lottie Costa M.D. Care team members present 1. Yasmani Durant PROCEDURE DETAILS Indications: knee osteoarthritis Pre procedure pain score: 5/10 Post procedure pain score: 3/10 Procedure Location knee Knee site: L knee joint Site prep: patient was prepped and draped in usual sterile fashion Patient position: supine Needle gauge: 25 G, length: 2 in Ultrasound image guidance used to localize target, identify at risk structures, and dynamically used to direct therapy to the target. Image(s) acquired and saved. Probe: linear high-frequency Needle approach: lateral to medial Ultrasound visualization: in-plane Procedural Medication The following medications were administered at the target site(s) Corticosteroid: 6 mg betamethasone acetate & sodium phosphate 6 mg/mL CONSENT Consent obtained: written (Risks, benefits and alternatives were discussed and a written Informed Consent was obtained. Please see Informed Consent form for further details.) UNIVERSAL PROTOCOL All relevant documentation and testing were reviewed and available. All required blood products, implants, devices and or special equipment were made available as applicable. Pre-procedure verification was conducted and the correct site was marked if required. A fire risk and smoke assessment were done as applicable. The procedural time-out to verify correct patient, correct side/site, and procedure was conducted prior to performing the procedure and confirmed in a procedural pause. PRE-PROCEDURE DETAILS Procedure purpose: diagnostic Indications: knee osteoarthritis Appropriate hand hygiene, gown, cap, mask, protective eyewear, sterile gloves, skin preparation, sterile drape, and strict aseptic technique were utilized as applicable for the procedure. Site preparation: chlorhexidine/alcohol SEDATION / ANESTHESIA Anesthesia method: local infiltration POST-PROCEDURE DETAILS Procedure completed successfully: yes Complications: no apparent complications Post-procedure instructions: avoid submersion of procedure site for 48 hours Discharge instructions: ice area as needed for comfort Comments Tolerated well. I discussed xray findings with her. Minimal effusion, attempted to aspirate but no return. Immediate relief with walking upon completion of block. ATTESTATION STATEMENT The teaching physician rule is not applicable. OPERATIVE NOTE INFORMATION Specimens: 0 Drains: 0 Estimated blood loss: 0 Implants: 0 us Lottie Costa M.D. PROCEDURE/MINOR SURGICAL ORDERAB LES Final Result * DX Knee Bilateral 2 View (04/22/2024 1:14 PM DRYWALLER) Anatomical Region Laterality Modality Lower Extremity, Knee, Muscu loskeletal RST LOS, Musculoskeletal ARZ LOS, Muskuloskeletal FLA LOS Bilateral Digit al Radiography Impressions 04/22/2024 1:20 PM DRYWALLER Tricompartmental degenerative hypertrophic changes both knees. Large amount of bilateral knee joint effusions. Extensive chondrocalcinosis. There are a few intra-articular loose bodies. Osteopenia. Narrative 04/22/2024 1:20 PM DRYWALLER EXAM: DX KNEE BILATERAL 2 VIEW Procedure Note Pete Avalos M.D. - 04/22/2024 EXAM: DX KNEE BILATERAL 2 VIEW IMPRESSION: Tricompartmental degenerative hypertrophic changes both knees. Largeamount of bilateral knee joint effusions. Extensive chondrocalcinosis.There are a few intra-articular loose bodies. Osteopenia. us Lottie Costa M.D. IMG DIAGNOSTIC IMAGING PROCEDURE S Final Result * (ABNORMAL) BMP (Basic Metabolic Panel) (04/14/2015 11:13 AM DRYWALLER) BUN (Blood Urea Nitrogen), S 18 6 - 21 MGDL POWERCHART Chloride, S 97(L) 98 - 107 MMOLL POWERCHART CO2 Total 28 22 - 29 MMOLL POWERCHART Creatinine 1.0 0.6 - 1.1 MGDL POWERCHART Glucose 92 70 - 139 MGDL POWERCHART Calcium, Total, S 10.8(H) 8.8 - 10.3 MGDL POWERCHART Sodium, S 137 135 - 145 MMOLL POWERCHART Potassium, S 5.0 3.6 - 5.2 MMOLL POWERCHART HXeGFR (MDRD) 53(L) >=60 [id number] POWERCHART eGFR Black/ >60 >=60 [id number] POWERCHART Blood 04/14/2015 11:1 3 AM DRYWALLER Rc Hilton M.D. LAB BLOOD ADD-ON Final Res ult POWERCHART from Last 3 Months or Most Recently Relevant to Health Maintenance Insurance MEDICARE [facility] Care Teams Marine Rigger Relationship Specialty Start Date End Date Elsewhere, Pcp PCP - General Family Medicine 11/11/20
--- OUTSIDE RECORDS SUMMARY | 2024-07-18 10:30 | XMS_ITS | Clinical Summary ---
Author Organization [facility] Address [address] [place] [address] Care Team Providers Care Last Greaser Name Role Phone Kevin Mccoy MD Primary Care Provider Allergies Active Allergy Reactions Criticality Noted Date Comments Sulfa (Sulfonamide Antibiotics) Rash 09/2013 Medications FA/MV,CA,IRON,MIN/L YCOPENE/LUT (MULTIVITAL ORAL) Take 1 Tab by mouth once daily. Active aspirin chewable 81 mg chewable tablet Take 81 mg by mouth once daily with a meal. Active fluticasone (50 mcg per actuation) nasal solution (FLONASE)Indication s:Allergic rhinitis due to pollen, unspecified seasonality Inhale 2 Sprays to both nostrils once daily. 16 g 12 2 Active atenoloL (TENORMIN) 25 mg tabletIndications:B enign essential HTN Take 1 Tablet (25 mg) by mouth once daily. 90 Tablet 3 4 Active famotidine (PEPCID) 20 mg tabletIndications:C hronic GERD Take 1 Tablet (20 mg) by mouth two times daily. 180 Tablet 3 4 Active hydroCHLOROthiazide 25 mg tabletIndications:B enign essential HTN Take 1 Tablet (25 mg) by mouth once daily. 90 Tablet 3 4 Active lisinopriL (PRINIVIL; ZESTRIL) 40 mg tabletIndications:B enign essential HTN Take 1 Tablet (40 mg) by mouth once daily. 90 Tablet 3 4 Active pravastatin (PRAVACHOL) 20 mg tabletIndications:H yperlipidemia, unspecified hyperlipidemia type Take 1 Tablet (20 mg) by mouth at bedtime. 90 Tablet 3 4 Active pregabalin (LYRICA) 25 mg capsuleIndications: Lumbar radiculopathy Take 1 Capsule (25 mg) by mouth two times daily. 60 Capsule 5 4 Active predniSONE (DELTASONE) 10 mg tabletIndications:P MR (polymyalgia rheumatica) (HC) TAKE TWO TABLETS BY MOUTH ONCE EVERY DAY WITH A MEAL FOR 10 DAYS, THEN ONE TABLET EVERY DAY WITH MEAL FOR 10 DAYS THEN ONE-HALF TABLET ONCE DAILY WITH MEAL FOR 10 DAYS 35 Tablet 4 Active Active Problems Problem Noted Date Diagnosed Date Osteopenia of multiple sites 12/19/2023 Elevated uric acid in blood 05/22/2023 Musculoskeletal pain 06/13/2022 Cataract, nuclear sclerotic senile, left 019 Hyperlipemia 09/12/2018 Primary hypertension 09/12/2018 Irritable bowel syndrome 09/12/2018 Cataract, nuclear sclerotic senile, right 2018 Resolved Problems Problem Noted Date Diagnosed Date Resolved Date Polymyalgia rheumatica 09/12/201811/10 Encounters Date Type Department Care Team Description 04/18/2024 Refill [facility] [address] [place] [address] Jj Davila MD Refill Request (Prednisone) from Last 3 Months Immunizations Name Administration Dates Next Due COVID-19 vaccine (iNeedBio NTech 30mcg/0.3mL) 12YO+ BIVALENT PFYULISA 11/24/2022 DT (Age < 7 years) 11/27/2003 Influenza A (H1N1), Inactivated 06/01/2009 Influenza RIV4 (Age 18+ Year s) PRESERV FREE 02/21/2020,04/04/2019 Influenza Virus, Unspecified 03/04/2014,03/19/20 13 Influenza, High-dose Inactivated 018,03/13/2018,03/20/2017,04/17,04/14/2015 Influenza, High-dose Quadriv alent Inactivated 04/03/2023,03/27/2022,04/05/2021 Influenza, IIV4 06/01/2009 Pneumococcal Conj 20-valent (Prevnar 20) 12/19/2023 Pneumococcal Poly,23-Valent (Pneumovax) 12/11/2018,09/18/2001 Pneumococcal conj 13-Valent (Prevnar 13) 04/14/2015 RSV, Recombinant ADJ Reconst ituted (Arexvy 120MCG/0.5mL) 05/29/2023 Tdap 04/14/2015 Zoster (Shingrix-RZV, recombinant) 12/11/2018, Zoster (Zostavax-ZVL, live) 10/05/2008 Family History Medical History Relation Name Comments Arthritis Sister Cancer-breast No Family History Relation Name Status Comments Sister Social History Tobacco Use Types Packs/Day Years Used Date Smoking Tobacco: Former Smokeless Tobacco: Never Tobacco Cessation:Counseling Given: Yes Alcohol Use Standard Drinks/Week Comments Yes 3.3 (1 standard drink = 0.6 oz p ure alcohol) 1 Glass of wine 3x a week PHQ-2 Answer Date Recorded PHQ-2 TOTAL SCORE 0 12/19/2023 Social Connections Answer Date Recorded Do you often feel lonely or isolated from those around you? 0 12/19/2023 Financial Resource Strain Answer Date R ecorded Difficulty of Paying Living Expenses 3 12/19/2023 Difficulty of Paying Living Expenses Not on file 12/19/2023 Food Insecurity Answer Date Recorded Do you worry your food will run out before you are able to buy more? 1 12/19/2023 Transportation Needs Answer Date Record ed Does lack of transportation keep you from medica l appointments? 1 12/19/2023 Does lack of transportation keep you from work, meetings or getting things that you need? 1 12/19/2023 Housing Stability Answer Date Recorded What is your housing situation today? 1 12/19/2023 Utilities Answer Date Recorded Do you have trouble paying f or utilities (for example, heat, electricity, water, phone)? 1 12/19/2023 Comments No Sex and Gender Information Value Date Recorded Sex Assigned at Not on file Legal Sex Female 7:53 AM COLOR BUFFER Gender Identity Not on file Sexual Orientation Not on file Obstetrics History Last Filed Vital Signs Vital Sign Reading Time Taken Comments Blood Pressure 189/74 02/25/2024 9:16 AM CDT Pulse 78 02/25/2024 9:16 AM CDT Temperature 36.6 C (97.9 F) 02/25/2024 9:16 AM CDT Respiratory Rate 18 10/31/2018 10:30 AM CDT Oxygen Saturation 100% 02/25/2024 9:16 AM CDT Inhaled Oxygen Concentration - - Weight 71.4 kg (157 lb 6.4 oz) 02/25/2024 9:16 A M CDT Height 158.6 cm (5' 2.44) 12/19/2023 10:07 AM C DT Body Mass Index 28.38 12/19/2023 10:07 AM CDT Plan of Treatment Upcoming Encounters Date Type Department Care Team (Late st Contact Info) Description 08/28/2024 1:00 PM CDT Office Visit [facility] [address] [place] [address] Jj Davila MD [address] [place] [address] Health Maintenance Due Date Last Done Comments COVID-19 vaccine series ( season) 2024 04/03/2023, 11/24/2022, 04/12/2022, Additional history exists Influenza for age 65+ 01/20/2024 04/03/2023 , 03/27/2022, 04/05/2021, Additional history exists BMI (ht and wt on same day) for age 18+ 12/18/2024 12/19/2023, 11/24/2022, 11/10/2021 Depression screening for age 12+ 12/18/2024 12/19/2023, 11/24/2022, 11/14/2021, Additional history exists Medicare Wellness for age 65+ 12/19/2024 12/19/2023, 11/10/2021 Tetanus booster 04/14/2025 04/14/2015 Tdap Completed 04/14/2015 Zoster (shingles) series for age 50+ Completed 12/11/2018, 07/26/2018, 10/05/2008 RSV vaccine for adults or Completed 05/29/2023 Pneumococcal series for age 50+ Completed 12/19/2023, 12/11/2018, 04/14/2015, Additional history exists DEXA/DXA scan for age 65+ Completed 12/25/2023, Medical Devices Implanted Type Area Vegetable Grader Device Identifier Shelf Expiration Date Model / Serial / Lot Iol [place] +22.5 Tecnis Zcb00 - [id number] Implanted:Qty: 1 on 09/12/2018 by Surya Comer Jr., MD at [facility] Right: Eye [employer] 08/15/2021 ZCB00 22.5# / [id number] / Iol [place] +23 Tecnis Zcb00 - [id number] Implanted:Qty: 1 on 10/31/2018 by Surya Comer Jr., MD at [facility] Left: Eye [employer] 03/18/2022 ZCB00 23.0# / [id number] / Procedures Procedure Name Priority Date/Time Associated Diagnosis Comments XR DXA BONE DENSITY 2 SITES AXIAL Routine 12/25/2023 9:57 AM CDT Post-menopausal from Last 3 Months or Most Recently Relevant to Health Maintenance Results * (ABNORMAL) XR DXA BONE DENSITY 2 SITES AXIAL (12/25/2023 9:57 AM CDT) Anatomical Region Laterality Modality Spine, HIPS, HIPL, HIPR Other Impressions 01/01/2024 3:07 PM CDT Osteopenia. RECOMMENDATIONS: The National Osteoporosis Foundation recommends pharmacologic treatment for patients with T-scores of -2.5 or less, patients with prior history of fragility fractures, or patients with 10-year probability of greater than 3% at hips or greater than 20% of suffering major osteoporotic fractures. Recommend continued optimization of calcium and vitamin D intake through dietary means and/or supplementation and regular exercise. Consider pharmacologic therapy for osteopenia with increased fracture risk. Follow-up bone density reading in 2 years if therapy initiated to assess therapeutic efficacy. Chata Valle PA-C [facility] 01/01/2024 Narrative 01/01/2024 3:07 PM CDT For Patients: Results are automatically released to your [employer] account once available, in compliance with federal regulations. This means that you may see your results before your provider has had a chance to review them. Please allow 2-3 business days for your provider to comment on the results. XR DXA Bone Mineral Density (BMD) EXAM LOCATION: [facility] [address] [facility] [address] PATIENT NAME: Amanda Claros DATE OF : 1935 EXAM DATE: 12/25/2023 REQUESTING PROVIDER: Kevin Mccoy MD GENDER AT : female HEIGHT: 5' 2.44 (12/19/2023) WEIGHT: 158 lb 6.4 oz (12/19/2023) MENOPAUSAL STATUS: Postmenopausal RACE/ETHNICITY: White RISK FACTORS: Height Loss (2 inches or more), History of Fragility Fracture (at a major site), Steroid Medication (non-topical), and White Race CURRENT MEDICATION FOR BONE LOSS: NONE INDICATION: Post-Menopause COMPARISON DATE(S): 2021 DXA scans are compared to prior studies for a patient only when the two (or more) studies were performed on the same scanner. It is not possible to compare data generated on one scanner to data from another because there are not standards in DXA equipment. This applies even if the two scanners are made by the same test deck supervisor. PROCEDURE: Dual-energy x-ray absorptiometry performed with routine technique. Reporting is completed in the form of a T-score. The T-score represents the standard deviation from peak bone mass based on young healthy adult. A Z-score is used for diagnosis in premenopausal women, and for men under the age of 50. FINDINGS: RESULT LUMBAR SPINE L1 - L4 (EXCLUDE L3) BMD: 1.047 g/cm2 T-Score: - 1.1 Z-Score: + 0.6 Change from prior in 2021: Decrease 2.9%. RESULTS FEMUR Left femoral neck BMD: 0.727 g/cm2 T-Score: - 2.2 Z-Score: + 0.1 Change from prior in 2021: Decrease 1.9%. Right femoral neck BMD: 0.761 g/cm2 T-Score: - 2.0 Z-Score: + 0.4 Change from prior in 2021: Decrease 5.6%. Left hip BMD: 0.757 g/cm2 T-Score: - 2.0 Z-Score: + 0.3 Change from prior in 2021: Increase 0.1%. Right hip BMD: 0.808 g/cm2 T-Score: - 1.6 Z-Score: + 0.7 Change from prior in 2021: Decrease 2.7%. WHO criteria: Normal: T-score at or above -1 SD Osteopenia: T-score between -1.1 and -2.4 SD Osteoporosis: T-score at or below -2.5 SD FRAX RISK CALCULATION (USED FOR OSTEOPENIA ONLY): 10-year probability of major osteoporotic fracture: 21.0%. 10-year probability of hip fracture: 6.7%. Kevin Mccoy MD DEXA Final Result from Last 3 Months or Most Recently Relevant to Health Maintenance Insurance MEDICARE PART B HB ONLY MEDICARE PART A HB ONLY MR [place] MEDICARE PART B HB ONLY [place] BLUE HB ONLY [place] BLUE MR PB ONLY Advance Directives * Full Code (Latest Code Status on File) Date Activated Date Inactivated Comments 10/31/2018 7:58 AM 10/31/2018 3:58 PM Question Answer Comments Code Status Discussion: Not Discussed * Full Code Date Activated Date Inactivated Comments 09/12/2018 7:51 AM 09/12/2018 3:42 PM Question Answer Comments Code Status Discussion: Not Discussed * Full Code Date Activated Date Inactivated Comments 09/22/2013 9:08 AM 09/22/2013 2:22 PM Care Teams Last Greaser Relationship Specialty Start Date End Date Kevin Mccoy MD [address] [place] [address] PCP - General Family Practice 08/01/21
[2024-07-18 10:33] VITALS: BP 181/96; PULSE 100; RESP 18; TEMP 36.7; O2SAT 97
--- NOTE | 2024-07-18 12:00 | ED.GENADULT ---
HPI - General Adult General Chief complaint: Extremity Pain/Injury, Lower Stated complaint: Body aches, chills Time Seen by Provider: 07/18/24 11:47 History of Present Illness HPI narrative: This 88-year-old female comes in reporting generalized aches and pains that of become significantly worse over the last 3 or 4 days. She has a history of osteoarthritis but also reports a history of polymyalgia rheumatica. She states that she was on a steroid for about 6 months about 10 or 12 years ago. She had a flare-up of some pain last fall and benefited from a course of steroid treatment for few weeks. She does not report any injury currently and reports generalized aches and pains through her extremities and her trunk. Related Data Home Medications ?Medication ?Instructions ?Recorded ?Confirmed famotidine 20 mg tablet mg PO 03/11/23 12/06/23 Previous Rx's ?Medication ?Instructions ?Recorded atenolol 25 mg tablet 25 mg PO QDAY #30 tabs 12/26/21 hydrochlorothiazide 25 mg tablet 25 mg PO QDAY #30 tabs 12/26/21 lisinopril 40 mg tablet 40 mg PO QDAY #30 tabs 12/26/21 pravastatin 20 mg tablet 20 mg PO .HS #30 tabs 01/10/22 prednisone 10 mg tablet 10 mg PO DIRECTED #24 tabs 06/12/23 prednisone 10 mg tablets in a dose See Rx Instructions PO .COMPLEX 07/18/24 pack PRN #21 ea Allergies Allergy/AdvReac Type Severity Reaction Status Date / Time Sulfa (Sulfonamide Allergy Mild Rash Verified 07/18/24 10:33 Antibiotics) Review of Systems Status of ROS: Reports: 10 or more systems reviewed and unremarkable except as noted in History and below Narrative: Constitutional: No fevers, no weight gain or loss. Eyes: No discharge. No vision changes. HENT: No congestion, no sore throat, no ear pain. Cardiovascular: No chest pain, no palpitations. Respiratory: No shortness of breath, no wheezes, no cough. Gastrointestinal: No abdominal pain, no vomiting, no diarrhea. Genitourinary: No dysuria, no hematuria. Musculoskeletal: Normal range of motion. Generalized aches and pains in all extremities and also in her back. Skin: No rashes, no pruritis. Neurological: No dizziness, weakness, sensory change, speech change. Endo/Heme/Allergies: No bruising or bleeding. No polydipsia. Pysch: no suicidality, no anxiety, no insomnia. All other systems reviewed and are negative. [facility] Medical History Sprain of right wrist ?S63.501A - Unspecified sprain of right wrist, initial encounter (ICD-10) Sprain of left wrist ?S63.502A - Unspecified sprain of left wrist, initial encounter (ICD-10) Mild cognitive impairment (2020) ?G31.84 - Mild cognitive impairment of uncertain or unknown etiology (ICD-10) Irritable bowel syndrome ?K58.9 - Irritable bowel syndrome without diarrhea (ICD-10) Gout ?M10.9 - Gout, unspecified (ICD-10) Pain ?R52 - Pain, unspecified (ICD-10) Adenomatous polyp of colon ?D12.6 - Benign neoplasm of colon, unspecified (ICD-10) History of polymyalgia rheumatica ?Z87.39 - Personal history of other diseases of the musculoskeletal system and connective tissue (ICD-10) Polymyalgia ?M35.3 - Polymyalgia rheumatica (ICD-10) Spondylolisthesis at L4-L5 level ?M43.16 - Spondylolisthesis, lumbar region (ICD-10) Lumbar degenerative disc disease ?M51.36 - Other intervertebral disc degeneration, lumbar region (ICD-10) Scoliosis ?M41.9 - Scoliosis, unspecified (ICD-10) Osteoarthritis of right hip ?M16.11 - Unilateral primary osteoarthritis, right hip (ICD-10) Osteoarthritis of left hip ?M16.12 - Unilateral primary osteoarthritis, left hip (ICD-10) Osteoarthritis of left knee ?M17.12 - Unilateral primary osteoarthritis, left knee (ICD-10) Surgical History Status post blepharoplasty of both eyes (11/2010) ?Z98.890 - Other specified postprocedural states (ICD-10) History of dilation and curettage (2013) ?Z98.890 - Other specified postprocedural states (ICD-10) History of carpal tunnel surgery (07/10/19) ?Z98.890 - Other specified postprocedural states (ICD-10) History of bilateral cataract extraction (~08/2018) ?Z98.41 - Cataract extraction status, right eye (ICD-10) ?Z98.42 - Cataract extraction status, left eye (ICD-10) S/P ORIF (open reduction internal fixation) fracture (05/05/09) ?Z98.890 - Other specified postprocedural states (ICD-10) ?Z87.81 - Personal history of (healed) traumatic fracture (ICD-10) Social History Smoking Status: Never smoker Do you use any of these nicotine containing products: None Second hand tobacco smoke exposure: No How often do you have a drink containing alcohol: never AUDIT-C Alcohol total score: 0 Non-prescribed substance use: denies use Exam Narrative: Exam Narrative: Constitutional: Well-developed, well-nourished, no acute distress. HEENT: Normocephalic, atraumatic. Neck: Normal range of motion. Nontender. Supple. Heart: Intact distal pulses. Lungs: No chest discomfort. No wheezes, rhonchi, or rales. Abdomen: Nontender. Back: Normal range of motion. Extremities: Normal range of motion. No sign of injury. No pedal edema. Skin: Intact. No rash. Warm. No erythema or pallor. Neurologic: No altered sensation. No weakness. Alert and oriented. Psychiatric: No suicidality. No anxiety or depression. No insomnia. Nursing notes and vitals signs are reviewed. Const: Vital Signs, click to edit/add: Vital Signs - 24 hr 07/18/24 10:33 Temperature 98.1 F Pulse Rate [Pulse Oximeter] 100 Respiratory Rate 18 Blood Pressure [Ri ght Upper Arm] 181/96 H Pulse Oximetry 97 Oxygen Delivery Me thod Room Air Course Vital Signs Vital signs: Initial Vital Signs Temperature 98.1 F 07/18/24 10:33 Temperature Source Temporal Artery Scan 07/18/24 10:33 Pulse Rate 100 07/18/24 10:33 Respiratory Rate 18 07/18/24 10:33 Blood Pressure 181/96 H 07/18/24 10:33 Blood Pressure Mean 124 H 07/18/24 10:33 Blood Pressure Position Sitting 07/18/24 10:33 Pulse Oximetry 97 07/18/24 10:33 Oxygen Delivery Method Room Air 07/18/24 10:33 Vital Signs Temperature 98.1 F 07/18/24 10:33 Pulse Rate 100 07/18/24 10:33 Respiratory Rate 18 07/18/24 10:33 Blood Pressure 181/96 H 07/18/24 10:33 Pulse Oximetry 97 07/18/24 10:33 Oxygen Delivery Method Room Air 07/18/24 10:33 Temperature 98.1 F 07/18/24 10:33 Pulse Rate 100 07/18/24 10:33 Respiratory Rate 18 07/18/24 10:33 Blood Pressure 181/96 H 07/18/24 10:33 Pulse Oximetry 97 07/18/24 10:33 Oxygen Delivery Method Room Air 07/18/24 10:33 Medical Decision Making MDM Narrative Medical decision making narrative: This patient comes in reporting significant generalized aches and pains. And these have become significantly worse over the past 3 or 4 days. She does not report any injury event or strenuous activity recently. She does have a history of polymyalgia rheumatica and has been on steroid in the past. She also reports osteoarthritis. She arrives here with normal vital signs. Her symptoms are rather suspicious for a flare-up of her polymyalgia rheumatica. Seeing that there was no injury event or significant strenuous activity recently, it is not necessary to do imaging at this time. The patient did receive an oral dose of dexamethasone 10 mg. I also provided prescription for prednisone and advised her to follow-up with her primary physician for ongoing management. Discharge Plan Discharge Clinical Impression: Polymyalgia rheumatica Patient Disposition: Home, Self-Care Additional Instructions: Take medication as prescribed. Follow up with primary physician for ongoing management. Return if worsening. Prescriptions: New prednisone 10 mg tablets,dose pack See Rx Instructions PO .COMPLEX PRNQty: 21 1RF Rx Instructions: orally per package directions PRN; No Action prednisone 10 mg tablet 10 mg PO DIRECTED Qty: 24 0RF Rx Instructions: Take 30 mg for four days, then 20 mg for four days, then 10 mg for four days. famotidine 20 mg tablet PO lisinopril 40 mg tablet 40 mg PO QDAY Qty: 30 0RF atenolol 25 mg tablet 25 mg PO QDAY Qty: 30 0RF hydrochlorothiazide 25 mg tablet 25 mg PO QDAY Qty: 30 0RF pravastatin 20 mg tablet 20 mg PO .HS Qty: 30 0RF Follow Up/Referrals: Kevin Mccoy MD [Primary Care Provider] - Stand Alone Forms: [employer] Info Instructions
--- OUTSIDE RECORDS SUMMARY | 2024-07-18 12:12 | XMS_ITS | Encounter Summary ---
Author Organization [facility] Address [address] [place] [address] Care Team Providers Care Circulation Director Name Role Phone Elsewhere, Pcp Primary Care Provider Unavailabl e Encounter Details Date Type Department Care Team (Late st Contact Info) Description 07/13/2016 Historical Ophthalmology [facility] Surya Comer Jr., M.D. 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
--- OUTSIDE RECORDS SUMMARY | 2024-07-18 12:12 | XMS_ITS | Encounter Summary ---
Author Organization [facility] Address [address] [place] [address] Care Team Providers Care Slat Twister Name Role Phone Elsewhere, Pcp Primary Care Provider Unavailabl e Encounter Details Date Type Department Care Team (Late st Contact Info) Description 07/20/2015 Historical Ophthalmology [facility] Surya Comer Jr., M.D. [address] [place] [phone] Social History Tobacco Use Types Packs/Day Years Used Date Smoking Tobacco: Never Assessed Comments Unknown Sex and Gender Information Value Date Recorded Sex Assigned at Not on file Legal Sex Female 7:26 PM SHOW HOST/HOSTESS Gender Identity Not on file Sexual Orientation [...] dry, drusen CDM Reports - EYEGEN Id: [id number] Status: Fnl documented in this encounter Plan of Treatment Not on file documented as of this encounter Visit Diagnoses Not on filedocumented in this encounter Additional Health Concerns Assessment Noted Time PHQ-9 Depression Total Score: 2 04/14/20 15 10:28 AM SHOW HOST/HOSTESS documented as of this encounter Care Teams Slat Twister Relationship Specialty Start Date End Date Elsewhere, Pcp PCP - General Family Medicine 11/11/20 documented as of this encounter
--- OUTSIDE RECORDS SUMMARY | 2024-07-18 12:12 | XMS_ITS | Encounter Summary ---
Author Organization [facility] Address [address] [place] [address] Care Team Providers Care Mail Technician Name Role Phone Elsewhere, Pcp Primary Care Provider Unavailabl e Encounter Details Date Type Department Care Team (Late st Contact Info) Description 07/09/2015 Historical Ophthalmology [facility] Surya Comer Jr., M.D. 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 CDM Reports - EYEGEN Id: [id number] Status: Fnl documented in this encounter Plan of Treatment Not on file documented as of this encounter Visit Diagnoses Not on filedocumented in this encounter Additional Health Concerns Assessment Noted Time PHQ-9 Depression Total Score: 2 04/14/20 15 10:28 AM CHEF ASSISTANT documented as of this encounter Care Teams Mail Technician Relationship Specialty Start Date End Date Elsewhere, Pcp PCP - General Family Medicine 11/11/20 documented as of this encounter
[2024-07-18] MEDS: dexAMETHasone 10 MG/ML inj PO (12:13)
--- OUTSIDE RECORDS SUMMARY | 2024-07-18 12:13 | XMS_ITS | Clinical Summary ---
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 Gender Identity Not on file Sexual Orientation [...] Description 08/28/2024 1:00 PM CDT Office Visit [facility] [address] [place] [address] Jj Davila MD [address] [place] [address] Health Maintenance Due Date Last Done Comments [...] Completed 12/25/2023, Medical Devices Implanted Type Area Mud Mixer Operator Device Identifier Shelf Expiration Date Model / Serial / Lot Iol [place] +22.5 Tecnis Zcb00 - [id number] Implanted:Qty: 1 on 09/12/2018 by Surya Comer Jr., MD at [employer] Right: Eye [employer] 08/15/2021 ZCB00 22.5# / [id number] / Iol [place] +23 Tecnis Zcb00 - [id number] Implanted:Qty: 1 on 10/31/2018 by Surya Comer Jr., MD at [employer] Left: Eye [employer] 03/18/2022 ZCB00 23.0# / [id number] / Procedures Procedure Name Priority Date/Time Associated [...] to assess therapeutic efficacy. Chata Valle PA-C [facility] 01/01/2024 Narrative 01/01/2024 3:07 PM CDT For Patients: Results are automatically released to your [employer] ([facility]) account once available, in compliance with federal regulations. This means that you may see your results before your provider has had a chance to review them. Please allow 2-3 business days for your provider to comment on the results. XR DXA Bone Mineral Density (BMD) EXAM LOCATION: [facility] [address] [facility] [address] PATIENT NAME: Amanda Claros DATE OF : [...] two scanners are made by the same vp of technology. PROCEDURE: Dual-energy x-ray absorptiometry performed with routine [...] MEDICARE PART A HB ONLY MR [place] MEDICARE PART B HB ONLY BLUE [place] BLUE HB ONLY [place] BLUE MR PB ONLY Advance Directives * [...] 9:08 AM 09/22/2013 2:22 PM Care Teams Delivery Mgr Relationship Specialty Start Date End Date Kevin Mccoy MD [address] [place] [address] PCP - General Family Practice 08/01/21
--- OUTSIDE RECORDS SUMMARY | 2024-07-18 12:13 | XMS_ITS | Encounter Summary ---
Author Organization [facility] Address [address] [place] [address] Care Team Providers Care Supervisor Air Conditioning Installer Name Role Phone Elsewhere, Pcp Primary Care Provider Unavailabl e Encounter Details Date Type Department Care Team (Late st Contact Info) Description 07/16/2014 Historical Ophthalmology [facility] Surya Comer Jr., M.D. 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 - 07/16/2014 9:51 AM CST Eye General CHIEF COMPLAINT Annual Eye Exam HISTORY OF PRESENT ILLNESS Pt states vision pretty good. ROS WNL - heart & lungs good. 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 IMPRESSION / REPORT / PLAN A) Mild nsc, stable AMd/Macular Drusen P) RTO 1 year, New MR only if desired CDM Reports - EYEGEN Id: [id number] Status: Fnl documented in this encounter Plan of Treatment Not on file documented as of this encounter Visit Diagnoses Not on filedocumented in this encounter Care Teams Supervisor Air Conditioning Installer Relationship Specialty Start Date End Date Elsewhere, Pcp PCP - General Family Medicine 11/11/20 documented as of this encounter
--- OUTSIDE RECORDS SUMMARY | 2024-07-18 12:13 | XMS_ITS | Clinical Summary ---
Author Organization [facility] Address [address] [place] [address] Care Team Providers Care Can Patcher Name Role Phone Elsewhere, Pcp Primary Care Provider Unavailabl e Source Comments Patient records contain information from all sites at [facility]. For routine questions regarding patient records, call [phone] during business hours, M-F 8:00 AM - 5:00 PM Central Time. Record requests for emergency care only can be directed to [phone] at any time.[facility] Allergies Active Allergy Reactions Criticality Noted Date [...] Department Care Team Description 04/30/2024 2:00 PM AMUSEMENT MACHINE MECHANIC Procedure visit Division of Pain Medicine in [place], [place] [address] [place] [address] Lottie Costa M.D. Primary Osteoarthritis Knee Bilateral 04/22/2024 12:29 PM AMUSEMENT MACHINE MECHANIC - 04/22/2024 11:59 PM AMUSEMENT MACHINE MECHANIC Hospital Encounter Department of Radiology, [facility], in [place], [place] [address] [place] [address] Lottie Costa M.D. Primary Osteoarthritis Knee Bilateral Discharge Disposition: Home or Self Care 04/22/2024 10:45 AM AMUSEMENT MACHINE MECHANIC Comprehensive Visit Division of Pain Medicine in [place], [place] [address] [place] [address] Trinh Michaud APRN, C.N.P., M.S.N. Primary Osteoarthritis [...] on file Legal Sex Female 7:26 PM AMUSEMENT MACHINE MECHANIC Gender Identity Not on file Sexual Orientation Not on file Last Filed Vital Signs Vital Sign Reading Time Taken Comments Blood Pressure 180/85 04/22/2024 10:30 AM AMUSEMENT MACHINE MECHANIC Pulse 73 04/22/2024 10:30 AM AMUSEMENT MACHINE MECHANIC Temperature 36.8 C (98.2 F) 02/08/2021 1:15 PM CDT Respiratory Rate 16 02/01/2016 1:20 PM CDT Oxygen Saturation 98% 02/08/2021 2:02 PM CDT Inhaled Oxygen Concentration - - Weight 72.4 kg (159 lb 9.8 oz) 04/22/2024 10:30 AM AMUSEMENT MACHINE MECHANIC Height 162 cm (5' 3.78) 04/22/2024 10:30 AM AMUSEMENT MACHINE MECHANIC Body Mass Index 27.59 04/22/2024 10:30 AM AMUSEMENT MACHINE MECHANIC Plan of Treatment Health Maintenance Due Date [...] this topic Medical Devices Implanted Type Area Apartment Rental Agent Device Identifier Shelf Expiration Date Model / Serial / Lot Hardware E.G. Pins/Screws/R ods Hardware e.g. pins/screws/ rods Left: Ankle Ocular Lens Ocular Lens Bilateral: Cornea Procedures Procedure Name Priority Date/Time Associated Diagnosis Comments DC ARTHCS ASP/INJ MJR JT W US Routine 04/30/2024 2:00 PM AMUSEMENT MACHINE MECHANIC Primary Osteoarthritis Knee Bilateral DX KNEE BILATERAL 2 VIEW RAD - Routine (most inpatients and all outpatients) 04/22/2024 1:14 PM AMUSEMENT MACHINE MECHANIC Primary Osteoarthritis Knee Bilateral BASIC METABOLIC PANEL, S/P Routine 04/14/2015 11:13 AM AMUSEMENT MACHINE MECHANIC from Last 3 Months or Most Recently Relevant to Health Maintenance Results * DC ARTHCS ASP/INJ MJR JT W US (04/30/2024 2:00 PM AMUSEMENT MACHINE MECHANIC) Narrative Lottie Costa M.D. - 04/30/2024 2:00 PM AMUSEMENT MACHINE MECHANIC Lottie Costa M.D. 04/30/2024 2:19 PM Knee [...] Knee Bilateral 2 View (04/22/2024 1:14 PM AMUSEMENT MACHINE MECHANIC) Anatomical Region Laterality Modality Lower Extremity, Knee, Muscu loskeletal RST LOS, Musculoskeletal ARZ LOS, Muskuloskeletal FLA LOS Bilateral Digit al Radiography Impressions 04/22/2024 1:20 PM AMUSEMENT MACHINE MECHANIC Tricompartmental degenerative hypertrophic changes both knees. Large amount of bilateral knee joint effusions. Extensive chondrocalcinosis. There are a few intra-articular loose bodies. Osteopenia. Narrative 04/22/2024 1:20 PM AMUSEMENT MACHINE MECHANIC EXAM: DX KNEE BILATERAL 2 VIEW Procedure Note Pete Avalos M.D. - 04/22/2024 EXAM: DX KNEE BILATERAL 2 VIEW IMPRESSION: Tricompartmental degenerative hypertrophic changes both knees. Largeamount of bilateral knee joint effusions. Extensive chondrocalcinosis.There are a few intra-articular loose bodies. Osteopenia. us Lottie Costa M.D. IMG DIAGNOSTIC IMAGING PROCEDURE S Final Result * (ABNORMAL) BMP (Basic Metabolic Panel) (04/14/2015 11:13 AM AMUSEMENT MACHINE MECHANIC) BUN (Blood Urea Nitrogen), S 18 6 [...] 5.2 MMOLL POWERCHART HXeGFR (MDRD) 53(L) >=60 [id number] POWERCHART eGFR Black/ >60 >=60 [id number] POWERCHART Blood 04/14/2015 11:1 3 AM AMUSEMENT MACHINE MECHANIC Rc Hilton M.D. LAB BLOOD ADD-ON Final Res ult POWERCHART from Last 3 Months or Most Recently Relevant to Health Maintenance Insurance MEDICARE [facility] Care Teams Can Patcher Relationship Specialty Start Date End Date Elsewhere, Pcp PCP - General Family Medicine 11/11/20
[2024-07-18 12:19] VITALS: BP 181/96; PULSE 100; RESP 18; TEMP 36.7
== END 2024-07-18 12:19 | disposition home or self-care (01) ==
PROVIDERS: Emergency Provider Emergency Medicine Emergency Medical Services; PCP Family Medicine
DX: M35.3 Polymyalgia rheumatica (principal)
CPT/HCPCS: 99283; 99284; J1100

== ENCOUNTER 2024-11-17 05:15 | Emergency (ER) | payer MEDICARE, BC, SELFPAY ==
--- OUTSIDE RECORDS SUMMARY | 2024-11-03 10:25 | XMS_ITS | Encounter Summary ---
Author Organization [facility] Address [address] [place] [address] Care Team Providers Care Cable Lacer Name Role Phone Elsewhere, Pcp Primary Care Provider Unavailabl e Encounter Details Date Type Department Care Team (Latest Contact Info) Description 11/03/2024 10:25 AM CDT Ancillary Procedure Department of Otorhinolaryngology Social History Tobacco Use Types Packs/Day Years Used Date Smoking Tobacco: Never Smokeless Tobacco: Never Comments No Sex and Gender Information Value Date Recorded Sex Assigned at Not on file Legal Sex Female 7:26 PM NEW CLIENT BANKING SERVICES CLERK Gender Identity Not on file Sexual Orientation Not on file documented as of this encounter Plan of Treatment Upcoming Encounters Date Type Department Care Team (Late st Contact Info) Description 02/20/2025 10:30 AM CDT Diagnostic Department of Otorhinolaryngology in [place], [place] [address] [address] Katty Humphrey, SCOTT, Au.DJudit [address] [place] [phone] documented as of this encounter Procedures Procedure Name Priority Date/Time Associated Diagnosis Comments OTORHINOLARYNGOLOGY IMAGE EXAM Routine 11/03/2024 10:25 AM CDT documented in this encounter Results * Otorhinolaryngology Image Exam-Otorhinolaryngology Image Exam (11/03/2024 10:25 AM CDT) 11/03/2024 10:2 1 AM CDT Narrative [facility] - 11/03/2024 10:31 AM CDT This order has been created and auto-finalized to support the import of images acquired without order. The clinical documentation to support these images can be found on the encounter that produced images. us Provider Not In System IMG NON RAD IMAGING PROCE DURES Final Result [facility] NA documented in this encounter Visit Diagnoses Not on filedocumented in this encounter Additional Health Concerns Assessment Noted Time PHQ-9 Depression Total Score: 2 04/14/20 15 10:28 AM NEW CLIENT BANKING SERVICES CLERK documented as of this encounter Care Teams Cable Lacer Relationship Specialty Start Date End Date Elsewhere, Pcp PCP - General Family Medicine 11/11/20 documented as of this encounter
--- OUTSIDE RECORDS SUMMARY | 2024-11-03 10:30 | XMS_ITS | Encounter Summary ---
Author Organization [facility] Address [address] [place] [address] Care Team Providers Care Knuckle Strap Sewer Name Role Phone Elsewhere, Pcp Primary Care Provider Unavailabl e Reason for Visit * Reason Comments Advice Only * Appointment Request (Routine) - Closed Specialty Diagnoses / Procedures Referred By Contgaby t Referred To Contact Otorhinolaryngology Diagnoses Sinusitis Referral ID Status Reason Start Date Expiration Date Visits Re quested Visits Authorized [id number] Closed 10/07/2024 01/07/2026 1 1 Encounter Details Date Type Department Care Team (Latest Contact Info) Description 11/03/2024 10:30 AM CDT Comprehensive Visit Department of Otorhinolaryngology in [place], [place] [address] [phone] Vani Alonso P.A.-C. 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 - 11/03/2024 10:30 AM CDT SUBJECTIVE CHIEF COMPLAINT/REASON FOR VISIT Postnasal drainage, phlegm in throat HISTORY OF PRESENT ILLNESS Amanda Claros is a self-referred 89 y.o. female here to have her nose and throat evaluated. For at least a year and a half or more she has had sensation of mucus and phlegm in her throat. She will often cough up or blow out white thick nasal drainage. She will occasionally have a vague bilateral frontal sinus pressure but no significant sinus pain pressure or headaches. She has tried oral antihistamines to no avail. Flonase has helped a little. In August of 2024 she developed a severe sorethroat and cough for about 3 days, those symptoms resolved but she feels her chronic postnasal drainage and phlegm in the throat has been increased since then. She saw Dr. Moore twice, he prescribed amoxicillin but after 1 day she stopped this as she had an itchy rash. She has not yet undergone fiberoptic laryngoscopy or imaging. Patient has history of bilateral sensorineural hearing loss and has had hearing aids for greater than 5 years. She does not feel that they work that well, has lost the left hearing aid, and realizes this is interfering with communication. Her children are frustrated with her decreased hearing and she is willing to undergo updated audiology evaluation and seek further recommendations. Ms. Claros has no history of nasal sinus surgeries. No intranasal drug use. Sometimes her nose feelsdry in the front and she will utilize nasal saline spray or Vicks ointment. The following portions of the patient's history were reviewed: allergies, current medications, problem list, family history, medical history, social history and surgical history OBJECTIVE PHYSICAL EXAMINATION Patient is alert and in no acute distress. Vocal quality is normal and she is able to breathe comfortably through her nose during the visit. Right external ear normal. Right ear canal normal. Right tympanic membrane is normal with clear middle ear. Left external ear normal. Left ear canal normal. Left tympanic membrane is normal with a clear middle ear. External nasal exam normal. Intranasal examreveals anterior septal perforation measuring approximately a cm in size along with mild septal deviation. Mild inferior turbinate hypertrophy. No active drainage purulence or polyps. Nasopharynx is not able to be evaluated indirectly due to gagging. Oral cavity is without lesions. Neck is without a denopathy. After 50/50% solution of topical 4% lidocaine and oxymetazoline nasal spray is sprayed into the right side of the nose, the flexible laryngoscope was passed through right side of nose. The right sideof the nose revealed no abnormalities, other than any above mentioned. Nasopharynx is clear. Base of tongue and epiglottis are normal. Larynx is normal. The piriform sinuses and valleculae are normal. Vocal cords move to midline symmetrically with phonation. Vocal cords are without nodules or polypoid changes. Scope was withdrawn without difficulty, and patient tolerated the procedure well. ASSESSMENT / PLAN #1 Other Chronic Sinusitis #2 Loss Hearing Sensorineural Bilateral #3 Perforation Nasal Septal #4 Drip Post Nasal We discussed the nasal septal perforation. She was not aware of this. She will continue with salinespray, Vaseline or Bowie saline gel to the perforation, and continued observation. Should dryness or crusting or epistaxis become an issue in the future would consider karen sesame draining oil or otherintervention. For the hearing loss, I have ordered audiology evaluation and she may schedule this at her convenience. Regarding the postnasal drainage, we are going to treat with doxycycline for 10 days, NeilMed rinsing twice daily, and utilizing her Flonase regularly. If symptoms persist she will reach out via phone call as she does not really utilize the portal. At that time I would consider sinus CT. She is comfortable with this plan. Vani Alonso P.A.-C. documented in this encounter Plan of Treatment Upcoming Encounters Date Type Department Care Team (Late st Contact Info) Description 02/20/2025 10:30 AM CDT Diagnostic Department of Otorhinolaryngology in [place], [place] [address] [place] [address] Milagro, SCOTT Renteria Au.D. [address] [place] [address] Scheduled Orders Name Type Priority Associated Diagnoses Orde r Schedule Audiology evaluation Audiology Routine Other Chronic Sinusitis Expected: 11/03/2024, Expires: 02/03/2026 documented as of this encounter Visit Diagnoses Diagnosis Other Chronic Sinusitis- Primary Loss Hearing Sensorineural Bilateral Perforation Nasal Septal Drip Post Nasal documented in this encounter Additional Health Concerns Assessment Noted Time PHQ-9 Depression Total Score: 2 04/14/20 15 10:28 AM ASTROPHYSICS TEACHER documented as of this encounter Care Teams Knuckle Strap Sewer Relationship Specialty Start Date End Date Elsewhere, Pcp PCP - General Family Medicine 11/11/20 documented as of this encounter
--- OUTSIDE RECORDS SUMMARY | 2024-11-17 05:18 | XMS_ITS | Encounter Summary ---
Author Organization [facility] Address [address] [place] [address] Care Team Providers Care Plate Grinder Name Role Phone Elsewhere, Pcp Primary Care Provider Unavailabl e Encounter Details Date Type Department Care Team (Late Contact Info) Description 07/13/2016 Historical Ophthalmology [facility] Surya Comer Jr., M.D. 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 Gender Identity Not on file Sexual Orientation [...] #2 Catarcts CDM Reports - EYEGEN Id: [id number] Status: Fnl documented in this encounter Plan of Treatment Upcoming Encounters Date Type Department Care Team (Late Contact Info) Description 02/20/2025 10:30 AM CDT Diagnostic Department of Otorhinolaryngology in [place], [place] [address] [place] [address] Dea, SCOTT Renteria, AuTrang [address] [place] [phone] documented as of this encounter Visit Diagnoses Not on filedocumented in this encounter Additional Health Concerns Assessment Noted Time PHQ-9 Depression Total Score: 2 04/14/20 15 10:28 AM AIR BAG STRIPPER documented as of this encounter Care Teams Plate Grinder Relationship Specialty Start Date End Date Elsewhere, Pcp PCP - General Family Medicine 11/11/20 documented as of this encounter
--- OUTSIDE RECORDS SUMMARY | 2024-11-17 05:18 | XMS_ITS | Encounter Summary ---
Author Organization [facility] Address [address] [place] [address] Care Team Providers Care First Responder Name Role Phone Elsewhere, Pcp Primary Care Provider Unavailabl e Encounter Details Date Type Department Care Team (Late st Contact Info) Description 07/20/2015 Historical Ophthalmology [facility] Surya Comer Jr., M.D. 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 Gender Identity Not on file Sexual Orientation [...] dry, drusen CDM Reports - EYEGEN Id: [id number] Status: Fnl documented in this encounter Plan of Treatment Upcoming Encounters Date Type Department Care Team (Late st Contact Info) Description 02/20/2025 10:30 AM CDT Diagnostic Department of Otorhinolaryngology in [place], [place] [address], [place] [phone] DeaKatty story AUD, AuTrang [address] [place] [phone] documented as of this encounter Visit Diagnoses Not on filedocumented in this encounter Additional Health Concerns Assessment Noted Time PHQ-9 Depression Total Score: 2 04/14/20 15 10:28 AM SHAKE OUT WORKER documented as of this encounter Care Teams First Responder Relationship Specialty Start Date End Date Elsewhere, Pcp PCP - General Family Medicine 11/11/20 documented as of this encounter
--- OUTSIDE RECORDS SUMMARY | 2024-11-17 05:18 | XMS_ITS | Encounter Summary ---
Author Organization [facility] Address [address] [place] [address] Care Team Providers Care Stitch Wheeler Name Role Phone Elsewhere, Pcp Primary Care Provider Unavailabl e Encounter Details Date Type Department Care Team (Late Contact Info) Description 07/09/2015 Historical Ophthalmology [facility] Surya Comer Jr., M.D. 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 CDM Reports - EYEGEN Id: [id number] Status: Fnl documented in this encounter Plan of Treatment Upcoming Encounters Date Type Department Care Team (Late Contact Info) Description 02/20/2025 10:30 AM CDT Diagnostic Department of Otorhinolaryngology in [place], [place] [address] [place] [address] Dea, SCOTT Renteria, AuTrang [address] [place] [phone] documented as of this encounter Visit Diagnoses Not on filedocumented in this encounter Additional Health Concerns Assessment Noted Time PHQ-9 Depression Total Score: 2 04/14/20 15 10:28 AM QUALITY ASSURANCE CLERK documented as of this encounter Care Teams Stitch Wheeler Relationship Specialty Start Date End Date Elsewhere, Pcp PCP - General Family Medicine 11/11/20 documented as of this encounter
--- OUTSIDE RECORDS SUMMARY | 2024-11-17 05:19 | XMS_ITS | Encounter Summary ---
Author Organization [facility] Address [address] [place] [address] Care Team Providers Care Occupational Health Nurse Name Role Phone Elsewhere, Pcp Primary Care Provider Unavailabl e Encounter Details Date Type Department Care Team (Late st Contact Info) Description 07/16/2014 Historical Ophthalmology [facility] Surya Comer Jr., M.D. 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 - 07/16/2014 9:51 AM CST Eye General CHIEF COMPLAINT Annual Eye Exam HISTORY OF PRESENT ILLNESS Pt states vision pretty good. ROS WNL - heart & lungs good. Polymyalgia - being managed by primary physician & [place] Radiotelegraph Operator. IMPRESSION / REPORT / PLAN A) Mild nsc, stable AMd/Macular Drusen P) RTO 1 year, New MR only if desired CDM Reports - EYEGEN Id: [id number] Status: Fnl documented in this encounter Plan of Treatment Upcoming Encounters Date Type Department Care Team (Late st Contact Info) Description 02/20/2025 10:30 AM CDT Diagnostic Department of Otorhinolaryngology in [place], [place] [address] [place] [phone] Katty Humphrey AUD, AuTrang [address] [place] [phone] documented as of this encounter Visit Diagnoses Not on filedocumented in this encounter Care Teams Occupational Health Nurse Relationship Specialty Start Date End Date Elsewhere, Pcp PCP - General Family Medicine 11/11/20 documented as of this encounter
--- OUTSIDE RECORDS SUMMARY | 2024-11-17 05:19 | XMS_ITS | Clinical Summary ---
Author Organization [facility] Address [address] [place] [id number] Care Team Providers Care Computer Engineering Technologist Name Role Phone Kevin Mccoy MD Primary [...] daily. 60 Capsule 5 4 Active predniSONE 10 mg tabletIndications:P MR (polymyalgia rheumatica) (HC) TAKE 1 TABLET (10MG) BY MOUTH ONCE DAILY WITH A MEAL. 30 Tablet 1 5 Active Active Problems Problem Noted Date Diagnosed Date Osteopenia of multiple sites 12/19/2023 Elevated uric acid in blood 05/22/2023 Musculoskeletal pain 06/13/2022 Cataract, nuclear sclerotic senile, left 019 Hyperlipemia 09/12/2018 Primary hypertension 09/12/2018 Irritable bowel syndrome 09/12/2018 Cataract, nuclear sclerotic senile, right 2018 Resolved Problems Problem Noted Date Diagnosed Date Resolved Date Polymyalgia rheumatica 09/12/201811/10 Encounters Date Type Department Care Team Description 10/29/2024 10:40 AM CDT Office Visit [facility] [address] [place] [address] Jj Davila MD Musculoskeletal Problem (Follow up left knee pain ) 10/29/2024 Travel 2024 Refill [facility] [address] [place] [address] Jj Davila MD Refill Request (Prednisone) 09/26/2024 Refill [facility] [address] [place] [address] Jj Davila MD Refill Request (Prednisone) 09/04/2024 8:30 AM CDT Office Visit [facility] [address] [place] [address] Kevin Mccoy MD Derm Problem (Redness on left foot, started a couple weeks ago) 09/04/2024 Travel 09/02/2024 Telephone [facility] [address] [place] [address] [address] Jj Davila MD Results (Labs) 08/28/2024 1:00 PM CDT Office Visit [facility] [address] [place] [address] [address] Jj Davila MD Musculoskeletal Problem (Follow low back pain/Follow up knee pain) 08/28/2024 Travel from Last 3 Months Immunizations Immunization Administration Dates Next Due COVID-19 vaccine (WESYNC SpABio NTech 30mcg/0.3mL) 12YO+ BIVALENT PF, MDV 11/24/2022 DT (Age < 7 years) 11/27/2003 [...] Former Smokeless Tobacco: Never Tobacco Cessation:Counseling Given: No Alcohol Use Standard Drinks/Week Comments Yes 3.3 [...] on file Legal 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 Pulse 86 10/29/2024 10:53 AM CDT Temperature 36.8 C (98.3 F) 10/29/2024 10:53 AM CDT Respiratory Rate 18 10/31/2018 10:3 0 AM CDT Oxygen Saturation 96% 10/29/2024 10: 53 AM CDT Inhaled Oxygen Concentration - - Weight 73 kg (161 lb) 10/29/2024 10:53 AM CDT Height 158.6 cm (5' 2.44) 12/19/2023 1 0:07 AM CDT Body Mass Index 29.03 12/19/2023 10:07 AM CDT Plan of Treatment Upcoming Encounters Date Type Department Care Team (Late st Contact Info) Description 01/07/2025 11:00 AM CDT Office Visit [facility] [address] [facility] [place] [address] Jj Davila MD [address] [place] [address] Health Maintenance Due Date Last Done Comments COVID-19 vaccine series (2023- season) 2024 03/31/2024, 04/03/2023, 11/24/2022, Additional history exists BMI (ht and wt on same day) for age 18+ 12/18/2024 12/19/2023, 11/24/2022, 11/10/2021 Depression screening for age 12+ 12/18/2024 12/19/2023, 11/24/2022, 11/14/2021, Additional history exists Medicare Wellness for age 65+ 12/19/2024 12/19/2023, 11/10/2021 Influenza Vaccine (Season Ended) 2025 02/21/2020, 04/04/2019, 03/15/2018, Additional history exists Tetanus booster 04/14/2025 04/14/2015 Tdap Completed 04/14/2015 Zoster (shingles) series for age 50+ Completed 12/11/2018, 07/26/2018, 10/05/2008 RSV vaccine for adults or Completed 05/29/2023 Pneumococcal series for age 50+ Completed 12/19/2023, 12/11/2018, 04/14/2015, Additional history exists DEXA/DXA scan for age 65+ Completed 12/25/2023, Hepatitis B series for 19+ Aged Out N o longer eligible based on patient's age to complete this topic Medical Devices Implanted Type Area Continuous Absorption Process Operator Device Identifier Shelf Expiration Date Model / Serial / Lot Iol Morris +22.5 Tecnis Zcb00 - [id number] Implanted:Qty: 1 on 09/12/2018 by Surya Comer Jr., MD at [facility] Right: Eye [employer] 08/15/2021 ZCB00 22.5# / [id number] / Iol Morris +23 Tecnis Zcb00 - [id number] Implanted:Qty: 1 on 10/31/2018 by Surya Comer Jr., MD at [facility] Left: Eye [employer] 03/18/2022 ZCB00 23.0# / [id number] / Procedures Procedure Name Priority Date/Time Associated Diagnosis Comments SEDIMENTATION RATE Routine 08/28/2024 2: 11 PM CDT PMR (polymyalgia rheumatica) (HC) C-REACTIVE PROTEIN Routine 08/28/2024 2: 11 PM CDT PMR (polymyalgia rheumatica) (HC) CYCLIC CITRULLINE PEPTIDE Routine 08/28/2024 2:11 PM CDT PMR (polymyalgia rheumatica) (HC) LYME SCREEN W/REFLEX Routine 08/28/2024 2:11 PM CDT PMR (polymyalgia rheumatica) (HC) RA QUANTITATIVE Routine 08/28/2024 2:11 PM CDT PMR (polymyalgia rheumatica) (HC) XR DXA BONE DENSITY 2 SITES AXIAL Routine 12/25/2023 9:57 AM CDT Post-menopausal from Last 3 Months or Most Recently Relevant to Health Maintenance Results * SEDIMENTATION RATE (08/28/2024 2:11 PM CDT) Pathologist [facility] SED RATE BY MODIFIED LEEANNREN 22 < OR = 30 mm/h [facility] Blood BLOOD SPECIMEN / Unknown 08/28/2024 2:11 PM CDT 08/28/2024 2:12 PM CDT us jJ Davila MD HEMATOLOGY Final Resu lt [employer] [facility] [address] [place] [address], [facility] [address] [place] [address] * CYCLIC CITRULLINE PEPTIDE (08/28/2024 2:11 PM CDT) CYCLIC CITRULLINATED PEPTIDE (CCP) AB (IGG) <16 UNITS [facility] Comment: Reference Range Negative: <20 Weak Positive: 20-39 Moderate Positive: 40-59 Strong Positive: >59 Blood BLOOD SPECIMEN / Unknown 08/28/2024 2:11 PM CDT 08/28/2024 2:12 PM CDT Jj Davila MD SEND OUTS Final Resu lt [facility] [address] [place] [address], [facility] [address] [place] [address] * LYME SCREEN W/REFLEX (08/28/2024 2:11 PM CDT) Pathologist [facility] LYME AB, SCREEN < or = 0.90 index [facility], Comment: REFERENCE RANGE: < OR = 0.90 Index Index Interpretation < OR = 0.90 NEGATIVE 0.91 - 1.09 EQUIVOCAL > OR = 1.10 POSITIVE This assay measures Lyme Disease (Borrelia burgdorferi) IgG plus IgM antibodies; it does not distinguish results that are both IgG and IgM positive from results that are either IgG or IgM positive. As recommended by the Centers for Disease Control and Prevention (CDC), all samples with positive or equivocal results in this screening assay will be tested using separate supplemental Lyme IgG and IgM immunoassays. Positive or equivocal screening assay results should not be interpreted as truly positive until verified as such using the supplemental assays. Screening and/or supplemental tests for Lyme disease antibodies may be falsely negative in early stages of Lyme disease, including the period when erythema migrans is apparent. These assays may be falsely positive in patients with other spirochetal diseases (e.g., syphilis) or infectious mononucleosis. Blood BLOOD SPECIMEN / Unknown 08/28/2024 2:11 PM CDT 08/28/2024 2:12 PM CDT Jj Davila MD SEND OUTS Final Resu lt [facility] [address] [place] [address], [facility], [address] [place] [address] * RA QUANTITATIVE (08/28/2024 2:11 PM CDT) RHEUMATOID FACTOR 10 <14 IU/mL [facility] Blood BLOOD SPECIMEN / Unknown 08/28/2024 2:11 PM CDT 08/28/2024 2:12 PM CDT Jj Davila MD SEND OUTS Final Resu lt [employer] [facility] [address] [place] [address], [place] [phone] [facility] [address] [place] [address] * C-REACTIVE PROTEIN (08/28/2024 2:11 PM CDT) C-REACTIVE PROTEIN 5.4 <8.0 mg/L [facility] Blood BLOOD SPECIMEN / Unknown 08/28/2024 2:11 PM CDT 08/28/2024 2:12 PM CDT Jj Davila MD CHEMISTRY Final Resu lt [employer] [facility] [address] [place] [address], [place] [phone] [facility] [address] [place] [address] * (ABNORMAL) XR DXA BONE DENSITY 2 [...] to assess therapeutic efficacy. Chata Valle PA-C [facility] 01/01/2024 Narrative 01/01/2024 3:07 PM CDT For Patients: Results are automatically released to your [facility]) account once available, in compliance with federal regulations. This means that you may see your results before your provider has had a chance to review them. Please allow 2-3 business days for your provider to comment on the results. XR DXA Bone Mineral Density (BMD) EXAM LOCATION: [address] [address] PATIENT NAME: Amanda Claros DATE OF : [...] two scanners are made by the same basket machine operator. PROCEDURE: Dual-energy x-ray absorptiometry performed with routine [...] ONLY MEDICARE PART A HB ONLY MR BC SYCUAN MEDICARE PART B HB ONLY BLUE CROSS SYCUAN BLUE HB ONLY BLUE CROSS SYCUAN BLUE MR PB ONLY Advance Directives * [...] 9:08 AM 09/22/2013 2:22 PM Care Teams Computer Engineering Technologist Relationship Specialty Start Date End Date Kevin Mccoy MD [address] [facility] [place] [address] PCP - General Family Practice 08/01/21
--- OUTSIDE RECORDS SUMMARY | 2024-11-17 05:19 | XMS_ITS | Clinical Summary ---
Author Organization [facility] Address [address] [place] [address] Care Team Providers Care Global Head Advertiser Solutions Name Role Phone Elsewhere, Pcp Primary Care Provider Unavailabl e Source Comments Patient records contain information from all sites at [facility]. For routine questions regarding patient records, call [phone] during business hours, M-F 8:00 AM - 5:00 PM Central Time. Record requests for emergency care only can be directed to [phone] at any time.[facility] Allergies Active Allergy Reactions Criticality Noted Date Comments Amoxicillin Rash 11/03/2024 Sulfa (Sulfonamide Antibiotics) Rash 09/2013 Medications * This document contains information received from the source organization and may not represent a complete record from that organization. atenoloL (TENORMIN) 25 mg tablet Take 1 tablet by mouth daily. 04/24/20 14 Active aspirin 81 mg chewable tablet Chew 81 mg daily. Active hydroCHLOROthia zide (HYDRODIURIL) 25 mg tablet Take 25 mg by mouth daily. Active ibuprofen (ADVIL,MOTRIN) 400 mg tablet Take 400 mg by mouth 2 (two) times a day. Active lisinopriL (PRINIVIL,ZESTR IL) 40 mg tablet Take 1 tablet by mouth daily. 10/09/19 20 Active pravastatin (PRAVACHOL) 20 mg tablet Take 20 mg by mouth daily. Active cholecalciferol , vitamin D3, 25 mcg (1,000 Unit) tablet Daily Active fluticasone propionate (FLONASE) 50 mcg/actuation nasal spray Administer 2 sprays into nostril(s). 08/02/19 22 Active famotidine (PEPCID) 20 mg tablet 10/18/19 24 Active triamcinolone (KENALOG) 0.1 % cream Apply 1 Application topically 2 (two) times a day. Apply thin layer to rash on right ankle for 2-3 weeks to see if this will improve/resolve 15 g 10/26/19 24 Active Additional Information Patient not taking.Reported on 11/03/2024 olopatadine (Pataday) 0.2 % ophthalmic solution Administer 1 drop into both eyes daily. 5 mL 3 12/06/19 24 Active pregabalin (Lyrica) 25 mg capsule Take 25 mg by mouth. 12/19/19 24 Active predniSONE (Deltasone) 10 mg tablet TAKE 1 TABLET (10MG) BY MOUTH ONCE DAILY WITH A MEAL. 10/17/19 Active amoxicillin (AmoxiL) 500 mg capsule Take 500 mg by mouth every 8 (eight) hours. 04/16/20 24 025 Discontinu ed(Therapy completed) doxycycline monohydrate (Avidoxy) 100 mg tabletIndicatio ns:Other Chronic Sinusitis Take 1 tablet (100 mg total) by mouth 2 (two) times a day for 10 days. 20 tablet 11/04/19 25 025 Active Problems Problem Noted Date Diagnosed Date Perforation Nasal Septal 11/03/2024 Cancer Skin Squamous Cell Personal History 10/25 [...] Encounters Date Type Department Care Team Description 11/03/2024 10:30 AM CDT Comprehensive Visit Department of Otorhinolaryngology in [place], [place] [address] [place] [address] Vani Alonso P.A.-C. Other Chronic Sinusitis (Primary Dx); Loss Hearing Sensorineural Bilateral; Perforation Nasal Septal; Drip Post Nasal 11/03/2024 10:25 AM CDT Ancillary Procedure Department of Otorhinolaryngology from Last 3 Months Immunizations Immunization Administration [...] Tobacco: Never Tobacco Cessation:Counseling Given: Not Answered Comments No Sex and Gender Information Value Date Recorded Sex Assigned at Not on file Legal Sex Female 7:26 PM ELASTIC ATTACHER COVERSTITCH Gender Identity Not on file Sexual Orientation Not on file Last Filed Vital Signs Vital Sign Reading Time Taken Comments Blood Pressure 180/85 04/22/2024 10:30 AM ELASTIC ATTACHER COVERSTITCH Pulse 73 04/22/2024 10:30 AM ELASTIC ATTACHER COVERSTITCH Temperature 36.8 C (98.2 F) 02/08/2021 1:15 PM CDT Respiratory Rate 16 02/01/2016 1:20 PM CDT Oxygen Saturation 98% 02/08/2021 2:02 PM CDT Inhaled Oxygen Concentration - - Weight 72.4 kg (159 lb 9.8 oz) 04/22/2024 10:30 AM ELASTIC ATTACHER COVERSTITCH Height 162 cm (5' 3.78) 04/22/2024 10:30 AM ELASTIC ATTACHER COVERSTITCH Body Mass Index 27.59 04/22/2024 10:30 AM ELASTIC ATTACHER COVERSTITCH Plan of Treatment Upcoming Encounters Date Type Department Care Team (Late st Contact Info) Description 02/20/2025 10:30 AM CDT Diagnostic Department of Otorhinolaryngology in [place], [place] [address] [place] [address] Katty Humphrey AUD, [employer]. [address] [place] [address] Health Maintenance Due Date Last Done Comments Depression Screening (Annual PHQ-2) 05/21/2024 Fall Risk [...] Completed 12/19/2023, 12/11/2018, 04/14/2015, Additional history exists Influenza Vaccine Completed 05/30/2024, , 03/27/2022, Additional history exists IPV Vaccines Aged Out No longer eligi ble based on patient's age to complete this topic Medical Devices Implanted Type Area Research And Development Chemist Device Identifier Shelf Expiration Date Model / Serial / Lot Hardware E.G. Pins/Screws/R ods Hardware e.g. pins/screws/ rods Left: Ankle Ocular Lens Ocular Lens Bilateral: Cornea Procedures Procedure Name Priority Date/Time Associated Diagnosis Comments OTORHINOLARYNGOLOGY IMAGE EXAM Routine 11/03/2024 10:25 AM CDT BASIC METABOLIC PANEL, S/P Routine 04/14 11:13 AM ELASTIC ATTACHER COVERSTITCH from Last 3 Months or Most Recently Relevant to Health Maintenance Results * Otorhinolaryngology Image Exam-Otorhinolaryngology Image Exam [...] NON RAD IMAGING PROCE DURES Final Result Performing Organization Address [facility] Co de Phone Number IISC NA * (ABNORMAL) BMP (Basic Metabolic Panel) (04/14/2015 11:13 AM ELASTIC ATTACHER COVERSTITCH) BUN (Blood Urea Nitrogen), S 18 6 [...] 5.2 MMOLL POWERCHART HXeGFR (MDRD) 53(L) >=60 [id number] POWERCHART eGFR Black/ >60 >=60 [id number] POWERCHART Blood 04/14/2015 11:1 3 AM ELASTIC ATTACHER COVERSTITCH us Rc Hilton M.D. LAB BLOOD ADD-ON Final Res ult Performing Organization Address City/[facility]/ZIP Co de Phone Number POWERCHART from Last 3 Months or Most Recently Relevant to Health Maintenance Insurance MEDICARE [facility] Care Teams Global Head Advertiser Solutions Relationship Specialty Start Date End Date Elsewhere, Pcp PCP - General Family Medicine 11/11/20
[2024-11-17 05:25] VITALS: BP 204/92; PULSE 98; RESP 18; TEMP 36.9; O2SAT 96; BMI 27.5
--- NOTE | 2024-11-17 05:55 | CRLHL7_ITS ---
For Patients: As a result of the Century Cures Act, medical imaging exams and procedure reports are released immediately into your electronic medical record. You may view this report before your referring provider. If you have questions, please contact your health care provider. INDICATION: Cough COMPARISON: 02/22/2011 TECHNIQUE: PA and lateral 2 view chest. FINDINGS: Lung volumes are good. No focal or diffuse opacities. No pulmonary edema. No pleural effusion. No pneumothorax. No pneumomediastinum. Normal cardiomediastinal silhouette. Atherosclerosis. Bones: Mild spinal curvature. No acute appearing bone finding. IMPRESSION: Normal chest radiographs. Dictated by Palma Zurita MD @ 11/17/2024 6:20:27 AM (Electronically Signed)
--- NOTE | 2024-11-17 06:00 | ED.GENADULT ---
HPI - General Adult General Date Seen: 11/17/24 Chief complaint: Cough Stated complaint: cough Time Seen by Provider: 11/17/24 05:33 Source: patient Mode of arrival: ambulatory Limitations: no limitations History of Present Illness HPI narrative: Patient is an 89-year-old female presenting to the emergency department for cough. States she has been having a cough for the past 4 or 5 days. States this past night the cough has been worse and it kept her up all night. Previously had a cough similar and states she has been given antibiotics for it in the past. States she has been told it is a sinus issue. Denies any sinus pain at this time. States she is coughing up white mucus and has some clear nasal discharge. Denies any sinus pain currently. Denies any chest pain or shortness of breath. She is hypertensive in states she always has high blood pressure. Denies fevers, chills, abdominal pain, nausea, vomiting, weakness, numbness, vision changes. No other concerns noted Related Data Home Medications ?Medication ?Instructions ?Recorded ?Confirmed famotidine 20 mg tablet mg PO 03/11/23 09/19/24 clindamycin HCl 300 mg capsule 300 mg PO 3XD 09/19/24 09/19/24 prednisone 10 mg tablet 10 mg PO DAILY 09/19/24 09/19/24 Previous Rx's ?Medication ?Instructions ?Recorded atenolol 25 mg tablet 25 mg PO QDAY #30 tabs 12/26/21 hydrochlorothiazide 25 mg tablet 25 mg PO QDAY #30 tabs 12/26/21 lisinopril 40 mg tablet 40 mg PO QDAY #30 tabs 12/26/21 pravastatin 20 mg tablet 20 mg PO .HS #30 tabs 01/10/22 Allergies Allergy/AdvReac Type Severity Reaction Status Date / Time Sulfa (Sulfonamide Allergy Mild Rash Verified 11/17/24 05:25 Antibiotics) amoxicillin Allergy Verified 11/17/24 05:25 Review of Systems Status of ROS: Reports: 10 or more systems reviewed and unremarkable except as noted in History and below [facility] Medical History Sprain of right wrist ?S63.501A - Unspecified sprain of right wrist, initial encounter (ICD-10) Sprain of left wrist ?S63.502A - Unspecified sprain of left wrist, initial encounter (ICD-10) Mild cognitive impairment (2020) ?G31.84 - Mild cognitive impairment of uncertain or unknown etiology (ICD-10) Irritable bowel syndrome ?K58.9 - Irritable bowel syndrome without diarrhea (ICD-10) Gout ?M10.9 - Gout, unspecified (ICD-10) Pain ?R52 - Pain, unspecified (ICD-10) Adenomatous polyp of colon ?D12.6 - Benign neoplasm of colon, unspecified (ICD-10) History of polymyalgia rheumatica ?Z87.39 - Personal history of other diseases of the musculoskeletal system and connective tissue (ICD-10) Polymyalgia ?M35.3 - Polymyalgia rheumatica (ICD-10) Spondylolisthesis at L4-L5 level ?M43.16 - Spondylolisthesis, lumbar region (ICD-10) Lumbar degenerative disc disease ?M51.36 - Other intervertebral disc degeneration, lumbar region (ICD-10) Scoliosis ?M41.9 - Scoliosis, unspecified (ICD-10) Osteoarthritis of right hip ?M16.11 - Unilateral primary osteoarthritis, right hip (ICD-10) Osteoarthritis of left hip ?M16.12 - Unilateral primary osteoarthritis, left hip (ICD-10) Osteoarthritis of left knee ?M17.12 - Unilateral primary osteoarthritis, left knee (ICD-10) Surgical History Status post blepharoplasty of both eyes (11/2010) ?Z98.890 - Other specified postprocedural states (ICD-10) History of dilation and curettage (2013) ?Z98.890 - Other specified postprocedural states (ICD-10) History of carpal tunnel surgery (07/10/19) ?Z98.890 - Other specified postprocedural states (ICD-10) History of bilateral cataract extraction (~08/2018) ?Z98.41 - Cataract extraction status, right eye (ICD-10) ?Z98.42 - Cataract extraction status, left eye (ICD-10) S/P ORIF (open reduction internal fixation) fracture (05/05/09) ?Z98.890 - Other specified postprocedural states (ICD-10) ?Z87.81 - Personal history of (healed) traumatic fracture (ICD-10) Social History Smoking Status: Never smoker Do you use any of these nicotine containing products: None Second hand tobacco smoke exposure: No How often do you have a drink containing alcohol: never AUDIT-C Alcohol total score: 0 Non-prescribed substance use: denies use Exam Narrative: Exam Narrative: Const: Well-nourished, Well-developed, in no distress Eyes: PERRL, no conjunctival injection, and symmetrical lids HENT: Atraumatic external nose and ears. Moist mucous membranes. Neck: Symmetric, trachea midline, No thyromegaly. CVS: RRR, No murmurs or gallops. Peripheral pulses 2+ and equal in all extremities RESP: Unlabored respiratory effort. Clear to auscultation bilaterally. GI: Nontender/Nondistended, No rebound or guarding. MSK:Extremities w/o deformity, Normal Active ROM Skin: Warm, Dry. No rashes or lesions. Neuro: Normal Muscle tone, No focal neurological deficits. Psych: Awake, Alert, & Oriented x3. Appropriate mood and affect. Const: Vital Signs, click to edit/add: Vital Signs - 24 hr 11/17/24 05:25 Temperature 98.4 F Pulse Rate [Right Pulse Oximeter] 98 Respiratory Rate 18 Blood Pressure [Ri ght Upper Arm] 204/92 H Pulse Oximetry 96 Oxygen Delivery Me thod Room Air Course Vital Signs Vital signs: Initial Vital Signs Respiratory Effort Normal 11/17/24 05:19 Respiratory Depth Normal 11/17/24 05:19 Respiratory Pattern Normal 11/17/24 05:19 Vital Signs Temperature 98.4 F 11/17/24 05:25 Pulse Rate 98 11/17/24 05:25 Respiratory Rate 18 11/17/24 05:25 Blood Pressure 204/92 H 11/17/24 05:25 Pulse Oximetry 96 11/17/24 05:25 Oxygen Delivery Method Room Air 11/17/24 05:25 Temperature 98.4 F 11/17/24 05:25 Pulse Rate 98 11/17/24 05:25 Respiratory Rate 18 11/17/24 05:25 Blood Pressure 204/92 H 11/17/24 05:25 Pulse Oximetry 96 11/17/24 05:25 Oxygen Delivery Method Room Air 11/17/24 05:25 Medical Decision Making [facility] Narrative Medical decision making narrative: Patient is an 89-year-old female presenting to the emergency department for a cough. Vital signs appear well. She is hypertensive at 204/92 but is asymptomatic with it. Will check a BMP to make sure her kidney function is alright. COVID swab ordered per the patient's request. Will do chest x-ray. Creatinine within normal limits and BMP is not concerning. She is slightly hyponatremic but that is her baseline. Viral swabs are negative. Chest x-ray shows no acute concerning abnormalities. She is safe for discharge. Symptoms are likely viral Lab Data Labs: Lab Results 11/17/24 11/17/24 Range/Units 05:26 06:15 Sodium 131 L (135-149) mmol/L Potassium 3.4 L (3.6-5.1) mmol/L Chloride 94 L (96-114) mmol/L Carbon Dioxide 31 (20-32) mmol/L Anion Gap 6 L (7-15) mEq/L BUN 22 (7-30) mg/dL Creatinine 0.9 (0.5-1.5) mg/dL Estimated Creat Clear 31.55 Estimated GFR 61 ml/min Glucose 103 (60-115) mg/dL Calcium 10.6 (8.4-10.6) mg/dL SARS-CoV-2 (PCR) Negative SARS-CoV-2 (Negative) Influenza Type A (PCR) Negative PCR FLU A (Negative) Influenza Type B (PCR) Negative PCR FLU B (Negative) RSV (PCR) Negative PCR RSV (Negative) Imaging Data Chest x-ray: Attestation: I have reviewed the pertinent imaging results. Radiologist's impression: Normal chest radiographs. Dictated by Palma Zurita MD @ 11/17/2024 6:20:27 AM Discharge Plan Discharge Clinical Impression: Cough Patient Disposition: Home, Self-Care Condition: Stable Instructions: Acute Cough (ED) Additional Instructions: Your symptoms are likely viral in nature. Antibiotics are not beneficial in this case. If you do continue to have issues with your cough you can follow up with your primary care provider. Return to emergency department for new or concerning symptoms. Activity Level: No Restrictions Discharge Diet: Regular Prescriptions: No Action clindamycin HCl 300 mg capsule 300 mg PO 3XD prednisone 10 mg tablet 10 mg PO DAILY famotidine 20 mg tablet PO lisinopril 40 mg tablet 40 mg PO QDAY Qty: 30 0RF atenolol 25 mg tablet 25 mg PO QDAY Qty: 30 0RF hydrochlorothiazide 25 mg tablet 25 mg PO QDAY Qty: 30 0RF pravastatin 20 mg tablet 20 mg PO .HS Qty: 30 0RF Follow Up/Referrals: Kevin Mccoy MD [Primary Care Provider, Family Practice] Stand Alone Forms: eCardio Info Instructions
[2024-11-17 06:07] LABS: PCR FLU A Negative PCR FLU A (Negative); PCR FLU B Negative PCR FLU B (Negative); PCR RSV Negative PCR RSV (Negative); SARS PCR* Negative SARS-CoV-2 (Negative)
[2024-11-17 06:35] LABS: Chloride* 94 mmol/L (96-114); Potassium* 3.4 mmol/L (3.6-5.1); Sodium* 131 mmol/L (135-149)
[2024-11-17 06:38] LABS: Blood Urea Nitrogen* 22 mg/dL (7-30); Creatinine* 0.9 mg/dL (0.5-1.5); Est. Creatinine Clearance* 31.55; Estimated Glomerular Filt Rate 61 ml/min
[2024-11-17 06:39] LABS: Anion Gap 6 mEq/L (7-15); Calcium* 10.6 mg/dL (8.4-10.6); Carbon Dioxide* 31 mmol/L (20-32); Glucose* 103 mg/dL (60-115)
== END 2024-11-17 07:02 | disposition home or self-care (01) ==
PROVIDERS: Emergency Provider Student in an Organized Health Care Education/Training Program; PCP Family Medicine
DX: R05.9 Cough, unspecified (principal); R03.0 Elevated blood-pressure reading, without diagnosis of hypertension
CPT/HCPCS: 36415; 71046; 80048; 87631; 99283; 99284

== ENCOUNTER 2025-02-20 08:48 | Emergency (ER) | payer MEDICARE, BC, SELFPAY ==
--- OUTSIDE RECORDS SUMMARY | 2025-02-16 13:15 | XMS_ITS | Encounter Summary ---
Author Organization [facility] Address [address] [place] [address] Care Team Providers Care Logistics Program Manager Name Role Phone Elsewhere, Pcp Primary Care Provider Unavailabl e Reason for Visit * Reason Comments Eye Exam * Outpatient (Routine) - Closed Specialty Diagnoses / Procedures Referred By Contgaby t Referred To Contact Ophthalmology Surya Comer Jr., M.D. [address], [place] [address] Phone: tel: fax: [facility] Region Referral ID Status Reason Start Date Expiration Date Visits Re quested Visits Authorized [id number] Closed 12/06/2023 06/06/2025 1 1 Encounter Details Date Type Department Care Team (Latest Contact Info) Description 02/16/2025 1:15 PM CDT Comprehensive Visit Department of Ophthalmology in [place], [place] [address], [place] [address] Surya Comer Jr., M.D. [address], [place] [address] Brow Ptosis Bilateral (Primary Dx); Dermatochalasis Left Upper Eyelid; Dermatochalasis Right Upper Eyelid; Intraocular Lens Implant Status Post Social History Tobacco Use Types Packs/Day Years Used Date Smoking Tobacco: Never Smokeless Tobacco: Never Comments No Sex and Gender Information Value Date Recorded Sex Assigned at Not on file Legal Sex Female 7:26 PM DOLL EYE SETTER Gender Identity Not on file Sexual Orientation [...] Total Score: 2 04/14/20 15 10:28 AM DOLL EYE SETTER documented as of this encounter Care Teams Logistics Program Manager Relationship Specialty Start Date End Date Elsewhere, Pcp PCP - General Family Medicine 11/11/20 documented as of this encounter
--- OUTSIDE RECORDS SUMMARY | 2025-02-20 08:55 | XMS_ITS | Encounter Summary ---
Author Organization [facility] Address [address] [place] [address] Care Team Providers Care Machine Attendant Name Role Phone Elsewhere, Pcp Primary Care Provider Unavailabl e Encounter Details Date Type Department Care Team (Late st Contact Info) Description 07/09/2015 Historical Ophthalmology [facility] Surya Comer Jr., M.D. 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 - 07/09/2015 9:29 AM CST Eye General CHIEF COMPLAINT Complete Exam HISTORY OF PRESENT ILLNESS Pt rescheduled as it has been under 1 yr since her appt. Rescheduled to July 19. Was not seen today. IMPRESSION / REPORT / PLAN Not seen by MD today. CDM Reports - EYEGEN Id: [id number] Status: Fnl documented in this encounter Plan of Treatment Not on file documented as of this encounter Visit Diagnoses Not on filedocumented in this encounter Additional Health Concerns Assessment Noted Time PHQ-9 Depression Total Score: 2 04/14/20 15 10:28 AM ASBESTOS BRAKE LINING FINISHER documented as of this encounter Care Teams Machine Attendant Relationship Specialty Start Date End Date Elsewhere, Pcp PCP - General Family Medicine 11/11/20 documented as of this encounter
--- OUTSIDE RECORDS SUMMARY | 2025-02-20 08:55 | XMS_ITS | Clinical Summary ---
Author Organization [facility] Address [address] [place] [address] Care Team Providers Care Marketing Programs Manager Name Role Phone Elsewhere, Pcp Primary Care Provider Unavailabl e Source Comments Patient records contain information from all sites at [facility]. For routine questions regarding patient records, call [phone] during business hours, M-F 8:00 AM - 5:00 PM Central Time. Record requests for emergency care only can be directed to [phone] at any time.[facility] Allergies Active Allergy Reactions Criticality Noted Date [...] this will improve/resolve 15 g 4 Active Additional Information Patient not taking.Reported on 02/16/2025 olopatadine (Pataday) 0.2 % ophthalmic solution Administer 1 drop into both eyes daily. 5 mL 3 4 Active Additional Information Patient not taking.Reported on 02/16/2025 pregabalin (Lyrica) 25 mg capsule Take 25 mg by mouth. 4 Active predniSONE (Deltasone) 10 mg tablet TAKE 1 TABLET (10MG) BY MOUTH ONCE DAILY WITH A MEAL. 5 Active olopatadine (Pataday) 0.2 % ophthalmic solution Administer 1 drop into both eyes daily. 2.5 mL 5 5 Active Active Problems Problem Noted Date [...] Encounters Date Type Department Care Team Description 02/16/2025 1:15 PM CDT Comprehensive Visit Department of Ophthalmology in [place], [place] [address] [place] [address] Surya Comer Jr., M.D. 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 Gender Identity Not on file Sexual Orientation Not on file Last Filed Vital Signs Vital Sign Reading Time Taken Comments Blood Pressure 180/85 04/22/2024 10:30 AM SALESPERSON [employer] Pulse 73 04/22/2024 10:30 AM SALESPERSON [employer] Temperature 36.8 C (98.2 F) 02/08/2021 1:15 PM CDT Respiratory Rate 16 02/01/2016 1:20 PM CDT Oxygen Saturation 98% 02/08/2021 2:02 PM CDT Inhaled Oxygen Concentration - - Weight 72.4 kg (159 lb 9.8 oz) 04/22/2024 10:30 AM SALESPERSON [employer] Height 162 cm (5' 3.78) 04/22/2024 10:30 AM SALESPERSON [employer] Body Mass Index 27.59 04/22/2024 10:30 AM SALESPERSON [employer] Plan of Treatment Health Maintenance Due Date Last Done Comments Depression Screening (Annual PHQ-2) 05/21/2024 Fall Risk Screen (Annual) 05/21/2024 Creatinine Level (Kidney Function Test) 12/18/2024 12/19/2023, 11/24/2022, 06/13/2022, Additional history exists Potassium Level 12/18/2024 12/19/2023, 11/2022, 06/13/2022, Additional history exists Sodium Level 12/18/2024 12/19/2023, 11/2022, 06/13/2022, Additional history exists COVID-19 Vaccine (2024- season) 2025 03/31/2024, 04/03/2023, 11/24/2022, Additional history exists Influenza Vaccine (#1) 2025 , 04/03/2023, 03/27/2022, Additional history exists DTaP,Tdap,and Td Vaccines (3 - Td or Tdap) 04/14/2025 04/14/2015, 11/27/2003 Zoster Vaccines Completed 12/11/2018, 12/2018, 10/05/2008 RSV vaccine - (32-36 weeks) or 50+ years Completed 05/29/2023 Pneumococcal vaccine (50+ years) Completed 12/19/2023, 12/11/2018, 04/14/2015, Additional history exists IPV Vaccines Aged Out No longer eligi ble based on patient's age to complete this topic Medical Devices Implanted Type Area Indirect Sales Representative Device Identifier Shelf Expiration Date Model / Serial / Lot Hardware E.G. Pins/Screws/R ods Hardware e.g. pins/screws/ rods Left: Ankle Ocular Lens Ocular Lens Bilateral: Cornea Procedures Procedure Name Priority Date/Time Associated Diagnosis Comments BASIC METABOLIC PANEL, S/P Routine 04/14/2015 11:13 AM SALESPERSON [employer] from Last 3 Months or Most Recently Relevant to Health Maintenance Results * (ABNORMAL) BMP (Basic Metabolic Panel) (04/14/2015 11:13 AM SALESPERSON [employer]) BUN (Blood Urea Nitrogen), S 18 6 [...] 5.2 MMOLL POWERCHART HXeGFR (MDRD) 53(L) >=60 [id number] POWERCHART eGFR Black/ >60 >=60 [id number] POWERCHART Blood 04/14/2015 11:1 3 AM SALESPERSON [employer] Rc Hilton M.D. LAB BLOOD ADD-ON Final Res ult POWERCHART from Last 3 Months or Most Recently Relevant to Health Maintenance Insurance MEDICARE [facility] Care Teams Marketing Programs Manager Relationship Specialty Start Date End Date Elsewhere, Pcp PCP - General Family Medicine 11/11/20
--- OUTSIDE RECORDS SUMMARY | 2025-02-20 08:55 | XMS_ITS | Encounter Summary ---
Author Organization [facility] Address [address] [place] [address] Care Team Providers Care Tax Senior Associate Name Role Phone Elsewhere, Pcp Primary Care Provider Unavailabl e Encounter Details Date Type Department Care Team (Late st Contact Info) Description 07/20/2015 Historical Ophthalmology [facility] Surya Comer Jr., M.D. [address] [place] [address] Social History Tobacco Use Types Packs/Day Years Used Date Smoking Tobacco: Never Assessed Comments Unknown Sex and Gender Information Value Date Recorded Sex Assigned at Not on file Legal Sex Female 7:26 PM BOX PRINTER Gender Identity Not on file Sexual Orientation [...] dry, drusen CDM Reports - EYEGEN Id: [id number] Status: Fnl documented in this encounter Plan of Treatment Not on file documented as of this encounter Visit Diagnoses Not on filedocumented in this encounter Additional Health Concerns Assessment Noted Time PHQ-9 Depression Total Score: 2 04/14/20 15 10:28 AM BOX PRINTER documented as of this encounter Care Teams Tax Senior Associate Relationship Specialty Start Date End Date Elsewhere, Pcp PCP - General Family Medicine 11/11/20 documented as of this encounter
--- OUTSIDE RECORDS SUMMARY | 2025-02-20 08:55 | XMS_ITS | Clinical Summary ---
Author Organization [facility] Address [address] [place] [id number] Care Team Providers Care Spring Upholsterer Name Role Phone Kevin Mccoy MD Primary Care Provider Allergies Active Allergy Reactions Criticality Noted Date Comments Sulfa (Sulfonamide Antibiotics) Rash 09/2013 Medications FA/MV,CA,IRON,MIN/ LYCOPENE/LUT (MULTIVITAL ORAL) Take 1 Tab by mouth once daily. Active aspirin chewable 81 mg chewable tablet Take 81 mg by mouth once daily with a meal. Active fluticasone (50 mcg per actuation) nasal solution (FLONASE)Indicatio ns:Allergic rhinitis due to pollen, unspecified seasonality Inhale 2 Sprays to both nostrils once daily. 16 g 12 08/02/19 22 Active atenoloL (TENORMIN) 25 mg tabletIndications: Benign essential HTN Take 1 Tablet (25 mg) by mouth once daily. 90 Tablet 3 01/30/20 25 Active famotidine (PEPCID) 20 mg tabletIndications: Chronic GERD Take 1 Tablet (20 mg) by mouth two times daily. 180 Tablet 3 01/30/20 25 Active lisinopriL (PRINIVIL; ZESTRIL) 40 mg tabletIndications: Benign essential HTN Take 1 Tablet (40 mg) by mouth once daily. 90 Tablet 3 01/30/20 25 Active pravastatin (PRAVACHOL) 20 mg tabletIndications: Hyperlipidemia, unspecified hyperlipidemia type Take 1 Tablet (20 mg) by mouth at bedtime. 90 Tablet 3 01/30/20 25 Active amLODIPine (NORVASC) 5 mg tabletIndications: Benign essential HTN Take 1 Tablet (5 mg) by mouth once daily. 90 Tablet 3 01/30/20 25 Active Additional Information Patient not taking.Reported on 02/19/2025 predniSONE (DELTASONE) 5 mg tabletIndications: PMR (polymyalgia rheumatica) (HC) Take 1 Tablet (5 mg) by mouth once daily with a meal. Taper down as directed. 30 Tablet 2 02/20/20 25 Active famotidine (PEPCID) 20 mg tabletIndications: Chronic GERD Take 1 Tablet (20 mg) by mouth two times daily. 180 Tablet 3 12/19/19 24 025 Discontin ued(Reord er (E-cancel not sent)) pravastatin (PRAVACHOL) 20 mg tabletIndications: Hyperlipidemia, unspecified hyperlipidemia type Take 1 Tablet (20 mg) by mouth at bedtime. 90 Tablet 3 12/19/19 24 025 Discontin ued(Reord er (E-cancel not sent)) pregabalin (LYRICA) 25 mg capsuleIndications :Lumbar radiculopathy Take 1 Capsule (25 mg) by mouth two times daily. 60 Capsule 5 12/19/19 24 025 Discontin ued(*Laney ent states no longer taking) hydroCHLOROthiazid e 25 mg tabletIndications: Benign essential HTN TAKE ONE TABLET BY MOUTH ONCE EVERY DAY 90 Tablet 12/18/19 25 025 Discontin ued(Reord er (E-cancel not sent)) lisinopriL (PRINIVIL; ZESTRIL) 40 mg tabletIndications: Benign essential HTN TAKE ONE TABLET BY MOUTH ONCE EVERY DAY 90 Tablet 12/18/19 25 025 Discontin ued(Reord er (E-cancel not sent)) atenoloL (TENORMIN) 25 mg tabletIndications: Benign essential HTN TAKE ONE TABLET BY MOUTH ONCE EVERY DAY 90 Tablet 12/18/19 25 025 Discontin ued(Reord er (E-cancel not sent)) predniSONE (DELTASONE) 10 mg tabletIndications: PMR (polymyalgia rheumatica) (HC) TAKE 1 TABLET (10MG) BY MOUTH ONCE DAILY WITH A MEAL. 30 Tablet 1 12/26/19 25 025 Discontin ued(*Med complete/ Regimen complete/ Level of care change) hydroCHLOROthiazid e 25 mg tabletIndications: Benign essential HTN Take 1 Tablet (25 mg) by mouth once daily. 90 Tablet 3 01/30/20 25 025 Discontin ued(*Hector rgic/Adve rse Rxn/Side Effects) Active Problems Problem Noted Date Diagnosed Date Chronic GERD 01/29/2025 Osteopenia of multiple sites 12/19/2023 Elevated uric acid in blood 05/22/2023 Musculoskeletal pain 06/13/2022 Cataract, nuclear sclerotic senile, left 019 Hyperlipemia 09/12/2018 Primary hypertension 09/12/2018 Irritable bowel syndrome 09/12/2018 Cataract, nuclear sclerotic senile, right 2018 Resolved Problems Problem Noted Date Diagnosed Date Resolved Date Polymyalgia rheumatica 09/12/201811/10 Encounters Date Type Department Care Team Description 02/19/2025 11:00 AM CDT Office Visit [address] [place] [address] Jj Davila MD Follow Up (Knee ziaz-wbtagghjf-dg states she aches all over) 02/19/2025 Travel 01/30/2025 Orders Only [address] [place] [address] Kevin Mccoy MD <No scans attached> 01/29/2025 8:55 AM CDT Office Visit [address] [place] [address] Kevin Mccoy MD Medicare ANNUAL (subsequent) Visit 01/29/2025 8:20 AM CDT Ancillary Procedure [place] [address] [facility] [place] [address] 01/29/2025 Travel 01/26/2025 11:00 AM CDT Office Visit [address] [facility] [address] Letty Velasquez AuD Hearing Aid (SALINAS check) 01/26/2025 Travel 01/12/2025 Travel 01/05/2025 9:30 AM CDT Office Visit [facility] [address] [place] [address] Letty Velasquez AuD Hearing Aid (SALINAS check) 01/05/2025 Travel 12/26/2024 Refill [facility] [address] [place] [address] Jj Davila MD Refill Request (Prednisone) 12/25/2024 Refill [facility] [address] [place] [address] Jj Davila MD Refill Request (Prednisone) 12/22/2024 9:30 AM CDT Office Visit [facility] [address] [place] [address] Letty Velasquez AuD Hearing Aid (SALINAS fitting) 12/22/2024 Travel 12/15/2024 Refill [facility] [address] [place] [address] Jj Davila MD Refill Request (Prednisone) 12/15/2024 Refill [facility] [address] [place] [address] Kevin Mccoy MD Refill Request (Hydrochlorothiazid e, Lisinopril, Atenolol) 12/08/2024 9:00 AM CDT Office Visit [address] [place] [address] Letty Velasquez AuD Hearing Aid (SALINAS consult) 12/08/2024 Travel 12/02/2024 12:30 PM CDT Office Visit [address] [place] [address] Letty Velasquez AuD Hearing Problem (Hearing test) 12/02/2024 Travel 12/01/2024 Telephone [facility] [address] [place] [address] Kevin Mccoy MD Referral (Audiological Evaluation) from Last 3 Months Immunizations Immunization Administration Dates Next Due COVID-19 vaccine ([employer]ries 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 CLERK Gender Identity Not on file Sexual Orientation Not on file Obstetrics History Last Filed Vital Signs Vital Sign Reading Time Taken Comments Blood Pressure 197/93 02/19/2025 11:06 AM CDT Pulse 70 02/19/2025 11:06 AM CDT Temperature 36.7 C (98 F) 02/19/2025 11:06 AM CDT Respiratory Rate 18 10/31/2018 10:30 AM CDT Oxygen Saturation 100% 02/19/2025 11:06 AM CDT Inhaled Oxygen Concentration - - Weight 74.8 kg (165 lb) 02/19/2025 11:06 AM CDT Height 157.5 cm (5' 2) 01/29/2025 8:48 AM CDT Body Mass Index 30.18 01/29/2025 8:48 AM CDT Plan of Treatment Upcoming Encounters Date Type Department Care Team (Late st Contact Info) Description 02/26/2025 8:55 AM CDT Office Visit [facility] [address] [place] [address] Kevin Mccoy MD [address] [place] [address] Health Maintenance Due Date Last Done Comments COVID-19 vaccine series ( season) 2025 03/31/2024, 04/03/2023, 11/24/2022, Additional history exists Influenza Vaccine (#1) 2025 , 04/04/2019, 03/15/2018, Additional history exists Tetanus booster 04/14/2025 04/14/2015 BMI (ht and wt on same day) for age 18+ 01/29/2026 01/29/2025, 12/19/2023, 11/24/2022, Additional history exists Depression screening for age 12+ 01/29/2026 01/29/2025, 12/19/2023, 11/24/2022, Additional history exists Medicare Wellness for age 65+ 01/30/2026 01/29/2025, 12/19/2023, 11/10/2021 Zoster (shingles) series for age 50+ Completed 12/11/2018, 07/26/2018, 10/05/2008 RSV vaccine for adults or Completed 05/29/2023 Pneumococcal series for age 50+ Completed 12/19/2023, 12/11/2018, 04/14/2015, Additional history exists DEXA/DXA scan for age 65+ Completed 12/25/2023, Hepatitis B series for 19+ Aged Out N o longer eligible based on patient's age to complete this topic Medical Devices Implanted Type Area Associate Project Manager Device Identifier Shelf Expiration Date Model / Serial / Lot Iol Burke +22.5 [employer]ecnis Zcb00 - [id number] Implanted:Qty: 1 on 09/12/2018 by Surya Comer Jr., MD at [facility] Right: Eye [employer] 08/15/2021 ZCB00 22.5# / [id number] / Iol Burke +23 Tecnis Zcb00 - [id number] Implanted:Qty: 1 on 10/31/2018 by Surya Comer Jr., MD at [facility] Left: Eye [employer] 03/18/2022 ZCB00 23.0# / [id number] / Procedures Procedure Name Priority Date/Time Associated Diagnosis Comments TSH WITH REFLEX Routine 01/29/2025 9:30 AM CDT Weight gain BASIC METABOLIC PANEL Routine 01/29/2025 9:30 AM CDT Benign essential HTN VITAMIN D 25 (DEFICIENCY) Routine 01/29/2025 9:30 AM CDT Vitamin D deficiency LIPID PANEL W REFLEX MEASURED LDL Routine 01/29/2025 9:30 AM CDT Hyperlipidemia, unspecified hyperlipidemia type XR MAMMO SANDEEP BILAT SCREEN Routine 01/29/2025 8:37 AM CDT Visit for screening mammogram XR DXA BONE DENSITY 2 SITES AXIAL Routine 12/25/2023 9:57 AM CDT Post-menopausal from Last 3 Months or Most Recently Relevant to Health Maintenance Results * TSH WITH REFLEX (01/29/2025 9:30 AM CDT) TSH W/REFLEX TO FT4 1.59 0.40 - 4.50 mIU/L 01/30/2025 5:38 AM CDT [facility] Blood BLOOD SPECIMEN / Unknown [facility] / Unknown 01/29/2025 9:30 AM CDT 01/29/2025 9:30 AM CDT Kevin Mccoy MD CHEMISTRY Final Result [facility] [address] [place] [address], * (ABNORMAL) LIPID PANEL W REFLEX MEASURED LDL (01/29/2025 9:30 AM CDT) CHOLESTEROL, TOTAL 214(H) <200 mg/dL 01/30/2025 4:00 AM CDT [facility] TRIGLYCERIDES 113 <150 mg/dL 01/30/2025 4:00 AM CDT [facility] HDL CHOLESTEROL 79 > OR = 50 mg/dL 01/30/2025 4:00 AM CDT [facility] NON HDL CHOLESTEROL 135(H) <130 mg/dL (calc) 01/30/2025 4:00 AM CDT [facility] Comment: For patients with diabetes plus 1 major ASCVD risk factor, treating to a non-HDL-C goal of <100 mg/dL (LDL-C of <70 mg/dL) is considered a therapeutic option. CHOL/HDLC RATIO 2.7 <5.0 (calc) 01/30/2025 4:00 AM CDT [facility] LDL-CHOLESTEROL 113(H) mg/dL (calc) 01/30/2025 4:00 AM CDT [facility] Comment: Reference range: <100 Desirable range <100 mg/dL for primary prevention; <70 mg/dL for patients with CHD or diabetic patients with > or = 2 CHD risk factors. LDL-C is now calculated using the Edenilson calculation, which is a validated novel method providing better accuracy than the Friedewald equation in the estimation of LDL-C. Jayden SS et al. ALTAGRACIA. 2013;310(19): 1036-7444 (http://education.In[employer]ive Logic.ActivePath/faq/WIF075) Blood BLOOD SPECIMEN / Unknown [facility] / Unknown 01/29/2025 9:30 AM CDT 01/29/2025 9:30 AM CDT Kevin Mccoy MD CHEMISTRY Final Result [facility] [address] [address], * VITAMIN D 25 (DEFICIENCY) (01/29/2025 9:30 AM CDT) [facility] VITAMIN D,25-OH,TOTAL,IA 33 30 - 100 ng/mL 01/30/2025 5:38 AM CDT [facility] Comment: Vitamin D Status 25-OH Vitamin D: Deficiency: <20 ng/mL Insufficiency: 20 - 29 ng/mL Optimal: > or = 30 ng/mL For 25-OH Vitamin D testing on patients on D2-supplementation and patients for whom quantitation of D2 and D3 fractions is required, the QuestAssureD(TM) 25-OH VIT D, (D2,D3), LC/MS/MS is recommended: order code 38108 (patients >2yrs). See Note 1 Note 1 For additional information, please refer to http://education.[employer].ActivePath/faq/VQA751 (This link is being provided for informational/ educational purposes only.) Blood BLOOD SPECIMEN / Unknown [facility] / Unknown 01/29/2025 9:30 AM CDT 01/29/2025 9:30 AM CDT us Kevin Mccoy MD SEND OUTS Final Result [facility] [address] [address], [place] [phone] * (ABNORMAL) BASIC METABOLIC PANEL (01/29/2025 9:30 AM CDT) SODIUM 129(L) 135 - 146 mmol/L 01/30/2025 4:00 AM CDT [facility] POTASSIUM 4.0 3.5 - 5.3 mmol/L 01/30/2025 4:00 AM CDT [facility] CARBON DIOXIDE 31 20 - 32 mmol/L 01/30/2025 4:00 AM CDT [facility] GLUCOSE 90 65 - 99 mg/dL 01/30/2025 4:00 AM CDT [facility] Comment: Fasting reference interval CALCIUM 10.2 8.6 - 10.4 mg/dL 01/30/2025 4:00 AM CDT [facility] CREATININE 0.82 0.60 - 0.95 mg/dL 01/30/2025 4:00 AM CDT [facility] BUN/CREATININE RATIO SEE NOTE: 6 - 22 (calc) 01/30/2025 4:00 AM CDT [facility] Comment: Not Reported: BUN and Creatinine are within reference range. EGFR 68 > OR = 60 mL/min/1. 73m2 01/30/2025 4:00 AM CDT [facility] UREA NITROGEN (BUN) 13 7 - 25 mg/dL 01/30/2025 4:00 AM CDT [facility] ELECTROLYTE BALANCE 6(L) 7 - 17 mmol/L (calc) 01/30/2025 4:00 AM CDT [facility] CHLORIDE 92(L) 98 - 110 mmol/L 01/30/2025 4:00 AM CDT [facility] Blood BLOOD SPECIMEN / Unknown [facility] / Unknown 01/29/2025 9:30 AM CDT 01/29/2025 9:30 AM CDT us Kevin Mccoy MD CHEMISTRY Final Result [facility] [address] [place] [address], [place] [phone] * XR MAMMO SANDEEP BILAT SCREEN (01/29/2025 8:37 AM CDT) Anatomical Region Laterality Modality BREASTS, Breast Left, Breast Right Bilateral Mammography Impressions 01/29/2025 3:24 PM CDT There is no radiographic evidence for malignancy. Recommend annual mammograms. MAMMOGRAM ASSESSMENT: ACR 1 Negative PATIENTS: You will also receive a letter with your examination results in an easy to read format. If you have questions about your results, please contact your referring provider. Narrative 01/29/2025 3:24 PM CDT For Patients: As a result of the Cures Act, medical imaging exams and procedure reports are released immediately into your electronic medical record. You may view this report before your referring provider. If you have questions, please contact your health care provider. XR MAMMO SANDEEP BILAT SCREEN [[id number]] CLINICAL HISTORY: This is an asymptomatic 89 y.o. patient. INDICATION FOR EXAM: Mammogram Screening. TECHNIQUE: CC and MLO views were obtained. This study was evaluated with the assistance of Computer-Aided Detection. Breast Tomosynthesis was used in interpretation. COMPARISON FILM: Yes 12/19/23 [facility] 11/23/22 [facility] FINDINGS: There are scattered areas of fibroglandular density. There are no dominant masses, suspicious micro calcifications or areas of architectural distortion. Kevin Mccoy MD MAMMO Final Result * (ABNORMAL) XR DXA BONE DENSITY 2 [...] to assess therapeutic efficacy. Chata Valle PA-C [facility] 01/01/2024 Narrative 01/01/2024 3:07 PM CDT For Patients: Results are automatically released to your [facility] ([employer]) account once available, in compliance with federal regulations. This means that you may see your results before your provider has had a chance to review them. Please allow 2-3 business days for your provider to comment on the results. XR DXA Bone Mineral Density (BMD) EXAM LOCATION: [address] [address] PATIENT NAME: Amanda Claros DATE OF : [...] two scanners are made by the same telephone advice nurse. PROCEDURE: Dual-energy x-ray absorptiometry performed with routine [...] MEDICARE PART A HB ONLY MR BC [place] MEDIC[place] PART B HB ONLY BLUE [place]OSS [place] BLUE HB ONLY [place] BLUE MR PB ONLY Advance Directives * [...] 9:08 AM 09/22/2013 2:22 PM Care Teams Spring Upholsterer Relationship Specialty Start Date End Date Kevin Mccoy MD [address] [place] [address] PCP - General Family Practice 08/01/21
--- OUTSIDE RECORDS SUMMARY | 2025-02-20 08:55 | XMS_ITS | Encounter Summary ---
Author Organization [facility] Address [address] [place] [address] Care Team Providers Care Tile Setter Name Role Phone Elsewhere, Pcp Primary Care Provider Unavailabl e Encounter Details Date Type Department Care Team (Late st Contact Info) Description 07/16/2014 Historical Ophthalmology [facility] Surya Comer Jr., M.D. 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 - 07/16/2014 9:51 AM CST Eye General CHIEF COMPLAINT Annual Eye Exam HISTORY OF PRESENT ILLNESS Pt states vision pretty good. ROS WNL - heart & lungs good. Polymyalgia - being managed by primary physician & [place] Supervisor Finish End. IMPRESSION / REPORT / PLAN A) Mild nsc, stable AMd/Macular Drusen P) RTO 1 year, New MR only if desired CDM Reports - [facility]YE[facility] Id: [id number] Status: Fnl documented in this encounter Plan of Treatment Not on file documented as of this encounter Visit Diagnoses Not on filedocumented in this encounter Care Teams Tile Setter Relationship Specialty Start Date End Date Elsewhere, Pcp PCP - General Family Medicine 11/11/20 documented as of this encounter
--- OUTSIDE RECORDS SUMMARY | 2025-02-20 08:55 | XMS_ITS | Encounter Summary ---
Author Organization [facility] Address [address] [place] [address] Care Team Providers Care General Studies Program Chair Name Role Phone Elsewhere, Pcp Primary Care Provider Unavailabl e Encounter Details Date Type Department Care Team (Late st Contact Info) Description 07/13/2016 Historical Ophthalmology [facility] Surya Comer Jr., M.D. [address] [address] Social History Tobacco Use Types Packs/Day Years Used Date Smoking Tobacco: Former Comments Unknown Sex and Gender Information Value Date Recorded Sex Assigned at Not on file Legal Sex Female 7:26 PM SMALL PIECE CUTTER Gender Identity Not on file Sexual Orientation [...] #2 Catarcts CDM Reports - [facility]YEGEN Id: [id number] Status: Fnl documented in this encounter Plan of Treatment Not on file documented as of this encounter Visit Diagnoses Not on filedocumented in this encounter Additional Health Concerns Assessment Noted Time PHQ-9 Depression Total Score: 2 04/14/20 15 10:28 AM SMALL PIECE CUTTER documented as of this encounter Care Teams General Studies Program Chair Relationship Specialty Start Date End Date Elsewhere, Pcp PCP - General Family Medicine 11/11/20 documented as of this encounter
[2025-02-20 09:11] VITALS: BP 211/92; PULSE 73; RESP 18; TEMP 36.3; O2SAT 96; BMI 29.3
[2025-02-20 10:04] LABS: Chloride* 99 mmol/L (96-114); Potassium* 3.7 mmol/L (3.6-5.1); Sodium* 136 mmol/L (135-149)
[2025-02-20 10:07] LABS: Anion Gap 5 mEq/L (7-15); Blood Urea Nitrogen* 12 mg/dL (7-30); Calcium* 10.5 mg/dL (8.4-10.6); Carbon Dioxide* 32 mmol/L (20-32); Creatinine* 0.9 mg/dL (0.5-1.5); Est. Creatinine Clearance* 30.16; Estimated Glomerular Filt Rate 61 ml/min; Glucose* 105 mg/dL (60-115)
--- NOTE | 2025-02-20 10:16 | ED_ITS ---
HPI - General Adult General Date Seen: 02/20/25 Chief complaint: Hypertension Stated complaint: High blood pressure Time Seen by Provider: 02/20/25 08:51 Source: patient Mode of arrival: ambulatory Limitations: no limitations History of Present Illness HPI narrative: Patient is an 89-year-old female presenting to the emergency department for hypertension. States she had her hydrochlorothiazide switched to amlodipine a couple weeks ago due to some abnormalities in her labs. She took the medication for a week but then was having lower extremity swelling so stopped taking the amlodipine. She has not told her primary care provider that she is not taking amlodipine. States she saw him yesterday for joint pain and is taking prednisone for that. She states she checked her blood pressures yesterday in the 190 systolic and checked him again today and they are almost 200. Due to that he came to the emergency department. Has not taking any of her morning blood pressure medications yet. Denies chest pain, shortness of breath, lightheadedness, dizziness, headache, vision changes, abdominal pain, weakness, numbness. No other concerns noted at this time. States her blood pressure is usually 150 systolic. Related Data Home Medications ?Medication ?Instructions ?Recorded ?Confirmed famotidine 20 mg tablet mg PO 03/11/23 09/19/24 clindamycin HCl 300 mg capsule 300 mg PO 3XD 09/19/24 09/19/24 prednisone 10 mg tablet 10 mg PO DAILY 09/19/24 0507/15 Previous Rx's ?Medication ?Instructions ?Recorded atenolol 25 mg tablet 25 mg PO QDAY #30 tabs 12/26 lisinopril 40 mg tablet 40 mg PO QDAY #30 tabs 12/26 pravastatin 20 mg tablet 20 mg PO .HS #30 tabs Allergies Allergy/AdvReac Type Severity Reaction Status Date / Time Sulfa (Sulfonamide Allergy Mild Rash Verified 11/17/24 05:25 Antibiotics) amoxicillin Allergy Verified 11/17/24 05:25 Review of Systems Status of ROS: Reports: 10 or more systems reviewed and unremarkable except as noted in History and below [facility] Medical History Sprain of right wrist ?S63.501A - Unspecified sprain of right wrist, initial encounter (ICD-10) Sprain of left wrist ?S63.502A - Unspecified sprain of left wrist, initial encounter (ICD-10) Mild cognitive impairment (2020) ?G31.84 - Mild cognitive impairment of uncertain or unknown etiology (ICD-10) Irritable bowel syndrome ?K58.9 - Irritable bowel syndrome without diarrhea (ICD-10) Gout ?M10.9 - Gout, unspecified (ICD-10) Pain ?R52 - Pain, unspecified (ICD-10) Adenomatous polyp of colon ?D12.6 - Benign neoplasm of colon, unspecified (ICD-10) History of polymyalgia rheumatica ?Z87.39 - Personal history of other diseases of the musculoskeletal system and connective tissue (ICD-10) Polymyalgia ?M35.3 - Polymyalgia rheumatica (ICD-10) Spondylolisthesis at L4-L5 level ?M43.16 - Spondylolisthesis, lumbar region (ICD-10) Lumbar degenerative disc disease ?M51.36 - Other intervertebral disc degeneration, lumbar region (ICD-10) Scoliosis ?M41.9 - Scoliosis, unspecified (ICD-10) Osteoarthritis of right hip ?M16.11 - Unilateral primary osteoarthritis, right hip (ICD-10) Osteoarthritis of left hip ?M16.12 - Unilateral primary osteoarthritis, left hip (ICD-10) Osteoarthritis of left knee ?M17.12 - Unilateral primary osteoarthritis, left knee (ICD-10) Surgical History Status post blepharoplasty of both eyes (11/2010) ?Z98.890 - Other specified postprocedural states (ICD-10) History of dilation and curettage (2013) ?Z98.890 - Other specified postprocedural states (ICD-10) History of carpal tunnel surgery (07/10/19) ?Z98.890 - Other specified postprocedural states (ICD-10) History of bilateral cataract extraction (~08/2018) ?Z98.41 - Cataract extraction status, right eye (ICD-10) ?Z98.42 - Cataract extraction status, left eye (ICD-10) S/P ORIF (open reduction internal fixation) fracture (05/05/09) ?Z98.890 - Other specified postprocedural states (ICD-10) ?Z87.81 - Personal history of (healed) traumatic fracture (ICD-10) Social History Smoking Status: Never smoker Do you use any of these nicotine containing products: None Second hand tobacco smoke exposure: No How often do you have a drink containing alcohol: never AUDIT-C Alcohol total score: 0 Non-prescribed substance use: denies use Exam Narrative: Exam Narrative: Const: Well-nourished, Well-developed, in now distress Eyes: No conjunctival injection, and symmetrical lids HENT: Atraumatic external nose and ears. Moist mucous membranes. Neck: Symmetric, trachea midline, No thyromegaly. CVS: RRR, No murmurs or gallops. Peripheral pulses 2+ and equal in all extremities RESP: Unlabored respiratory effort. Clear to auscultation bilaterally. GI: Nontender/Nondistended, No rebound or guarding. MSK:Extremities w/o deformity, Normal Active ROM Skin: Warm, Dry. No rashes or lesions. Neuro: Normal Muscle tone, No focal neurological deficits. Psych: Awake, Alert, & Oriented x3. Appropriate mood and affect. Const: Vital Signs, click to edit/add: Vital Signs - 24 hr 02/20/25 09:11 Temperature 97.3 F L Pulse Rate [Pulse Oximeter] 73 Respiratory Rate 18 Blood Pressure [Ri ght Upper Arm] 211/92 H Pulse Oximetry 96 Oxygen Delivery Me thod Room Air Course Vital Signs Vital signs: Initial Vital Signs Temperature 97.3 F L 02/20/25 09:11 Temperature Source Temporal Artery Scan 02/20/25 09:11 Pulse Rate 73 02/20/25 09:11 Respiratory Rate 18 02/20/25 09:11 Blood Pressure 211/92 H 02/20/25 09:11 Blood Pressure Mean 131 H 02/20/25 09:11 Pulse Oximetry 96 02/20/25 09:11 Oxygen Delivery Method Room Air 02/20/25 09:11 Vital Signs Temperature 97.3 F L 02/20/25 09:11 Pulse Rate 73 02/20/25 09:11 Respiratory Rate 18 02/20/25 09:11 Blood Pressure 211/92 H 02/20/25 09:11 Pulse Oximetry 96 02/20/25 09:11 Oxygen Delivery Method Room Air 02/20/25 09:11 Temperature 97.3 F L 02/20/25 09:11 Pulse Rate 73 02/20/25 09:11 Respiratory Rate 18 02/20/25 09:11 Blood Pressure 211/92 H 02/20/25 09:11 Pulse Oximetry 96 02/20/25 09:11 Oxygen Delivery Method Room Air 02/20/25 09:11 Medical Decision Making MDM Narrative Medical decision making narrative: Patient is an 89-year-old female presenting to emergency department for hypertension. She has asymptomatic hypertension. Considering the blood pressure did get to 211/92 here. I will do a BMP to check kidney function per ACEP guidelines. A new med no further workup is necessary. BMP shows no concerning findings and she is safe for discharge. I told her to follow up with the primary care provider she states she has an appointment next week. Lab Data Labs: Lab Results 02/20/25 Range/Units 09:43 Sodium 136 (135-149) mmol/L Potassium 3.7 (3.6-5.1) mmol/L Chloride 99 (96-114) mmol/L Carbon Dioxide 32 (20-32) mmol/L Anion Gap 5 L (7-15) mEq/L BUN 12 (7-30) mg/dL Creatinine 0.9 (0.5-1.5) mg/dL Estimated Creat Clear 30.16 Estimated GFR 61 ml/min Glucose 105 (60-115) mg/dL Calcium 10.5 (8.4-10.6) mg/dL Discharge Plan Discharge Clinical Impression: Essential hypertension Patient Disposition: Home, Self-Care Condition: Stable Instructions: Chronic Hypertension (ED) Additional Instructions: I recommend close follow-up with the primary care provider about her blood pressure. I do recommend calling today to let him know you are not taking the amlodipine and that you are having high blood pressure. Return to emergency department for new or worsening symptoms. Prescriptions: No Action clindamycin HCl 300 mg capsule 300 mg PO 3XD prednisone 10 mg tablet 10 mg PO DAILY famotidine 20 mg tablet PO lisinopril 40 mg tablet 40 mg PO QDAY Qty: 30 0RF atenolol 25 mg tablet 25 mg PO QDAY Qty: 30 0RF pravastatin 20 mg tablet 20 mg PO .HS Qty: 30 0RF Follow Up/Referrals: Kevin Mccoy MD [Primary Care Provider, Family Practice] Stand Alone Forms: Wave[employer] Info Instructions
[2025-02-20 10:21] VITALS: BP 191/94
== END 2025-02-20 10:32 | disposition home or self-care (01) ==
PROVIDERS: Emergency Provider Student in an Organized Health Care Education/Training Program; PCP Family Medicine
DX: I10 Essential (primary) hypertension (principal)
CPT/HCPCS: 36415; 80048; 99283

== ENCOUNTER 2025-03-18 06:58 | Emergency (ER) | payer MEDICARE, BC, SELFPAY ==
--- OUTSIDE RECORDS SUMMARY | 2025-02-16 13:15 | XMS_ITS | Encounter Summary ---
Author Organization [facility] Address [address] [place] [address] Care Team Providers Care Box Repairer Name Role Phone Elsewhere, Pcp Primary Care Provider Unavailabl e Reason for Visit * Reason Comments Eye Exam * Outpatient (Routine) - Closed Specialty Diagnoses / Procedures Referred By Contgaby t Referred To Contact Ophthalmology Surya Comer Jr., M.D. [address] [address] Phone: tel: fax: [facility] Region Referral ID Status Reason Start Date Expiration Date Visits Re quested Visits Authorized [id number] Closed 12/06/2023 06/06/2025 1 1 Encounter Details Date Type Department Care Team (Latest Contact Info) Description 02/16/2025 1:15 PM CDT Comprehensive Visit Department of Ophthalmology in [place], [place] [address], [place] [address] Surya Comer Jr., M.D. [address] [address] Brow Ptosis Bilateral (Primary Dx); Dermatochalasis Left Upper Eyelid; Dermatochalasis Right Upper Eyelid; Intraocular Lens Implant Status Post Social History Tobacco Use Types Packs/Day Years Used Date Smoking Tobacco: Never Smokeless Tobacco: Never Comments No Sex and Gender Information Value Date Recorded Sex Assigned at Not on file Legal Sex Female 7:26 PM SEC ACCOUNTANT Gender Identity Not on file Sexual Orientation Not on file documented as of this encounter Progress Notes * Surya Comer Jr., M.D. - 02/16/2025 1:15 PM CDT Amanda Claros was seen today for Eye Exam #1 Brow Ptosis Bilateral #2 Dermatochalasis Left Upper Eyelid #3 Dermatochalasis Right Upper Eyelid #4 Intraocular Lens Implant Status Post #1-3 Doesn't want done now; seeingOK #4 Stable New glasses if desired RTO 1 year documented in this encounter Miscellaneous Notes * Addendum Note - Surya Comer Jr., M.D. - 02/16/2025 1:15 PM CDTAddended by: SURYA COMER JR. 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
--- OUTSIDE RECORDS SUMMARY | 2025-03-18 07:00 | XMS_ITS | Encounter Summary ---
Author Organization [facility] Address [address] [place] [address] Care Team Providers Care Huc Name Role Phone Elsewhere, Pcp Primary Care Provider Unavailabl e Encounter Details Date Type Department Care Team (Late st Contact Info) Description 07/16/2014 Historical Ophthalmology [facility] Surya Comer Jr., M.D. 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 - 07/16/2014 9:51 AM CST Eye General CHIEF COMPLAINT Annual Eye Exam HISTORY OF PRESENT ILLNESS Pt states vision pretty good. ROS WNL - heart & lungs good. Polymyalgia - being managed by primary physician & [place] [facility]. IMPRESSION / REPORT / PLAN A) Mild nsc, stable AMd/Macular Drusen P) RTO 1 year, New MR only if desired CDM Reports - EYEGEN Id: [id number] Status: Fnl documented in this encounter Plan of Treatment Not on file documented as of this encounter Visit Diagnoses Not on filedocumented in this encounter Care Teams Huc Relationship Specialty Start Date End Date Elsewhere, Pcp PCP - General Family Medicine 11/11/20 documented as of this encounter
--- OUTSIDE RECORDS SUMMARY | 2025-03-18 07:00 | XMS_ITS | Encounter Summary ---
Author Organization [facility] Address [address] [place] [address] Care Team Providers Care Metal Finisher Name Role Phone Elsewhere, Pcp Primary Care Provider Unavailabl e Encounter Details Date Type Department Care Team (Late st Contact Info) Description 07/13/2016 Historical Ophthalmology [facility] Surya Comer Jr., M.D. [address] [address] Social History Tobacco Use Types Packs/Day Years Used Date Smoking Tobacco: Former Comments Unknown Sex and Gender Information Value Date Recorded Sex Assigned at Not on file Legal Sex Female 7:26 PM VP SITE Gender Identity Not on file Sexual Orientation [...] #2 Catarcts CDM Reports - EYEGEN Id: [id number] Status: Fnl documented in this encounter Plan of Treatment Not on file documented as of this encounter Visit Diagnoses Not on filedocumented in this encounter Additional Health Concerns Assessment Noted Time PHQ-9 Depression Total Score: 2 04/14/20 15 10:28 AM VP SITE documented as of this encounter Care Teams Metal Finisher Relationship Specialty Start Date End Date Elsewhere, Pcp PCP - General Family Medicine 11/11/20 documented as of this encounter
--- OUTSIDE RECORDS SUMMARY | 2025-03-18 07:00 | XMS_ITS | Clinical Summary ---
Author Organization [facility] Address [address] [place] [address] Care Team Providers Care Salad Maker Name Role Phone Kevin Mccoy MD Primary Care Provider Allergies Active Allergy Reactions Criticality Noted Date Comments Amoxicillin Rash 02/26/2025 Sulfa (Sulfonamide Antibiotics) Rash 09/2013 Medications FA/MV,CA,IRON,MIN/ LYCOPENE/LUT (MULTIVITAL ORAL) Take 1 Tab by mouth once daily. Active fluticasone (50 mcg per actuation) nasal solution (FLONASE)Indicatio ns:Allergic rhinitis due to pollen, unspecified seasonality Inhale 2 Sprays to both nostrils once daily. 16 g 12 2 Active famotidine (PEPCID) 20 mg tabletIndications: Chronic GERD Take 1 Tablet (20 mg) by mouth two times daily. 180 Tablet 3 5 Active lisinopriL (PRINIVIL; ZESTRIL) 40 mg tabletIndications: Benign essential HTN Take 1 Tablet (40 mg) by mouth once daily. 90 Tablet 3 5 Active pravastatin (PRAVACHOL) 20 mg tabletIndications: Hyperlipidemia, unspecified hyperlipidemia type Take 1 Tablet (20 mg) by mouth at bedtime. 90 Tablet 3 5 Active predniSONE (DELTASONE) 5 mg tabletIndications: PMR (polymyalgia rheumatica) (HC) Take 1 Tablet (5 mg) by mouth once daily with a meal. Taper down as directed. 30 Tablet 2 5 Active carvediloL (COREG) 12.5 mg tabletIndications: Benign essential HTN Take 1 Tablet (12.5 mg) by mouth two times daily with meals. 60 Tablet 11 5 Active aspirin chewable 81 mg chewable tablet Take 81 mg by mouth once daily with a meal. 025 Discontin ued(*Med complete/ Regimen complete/ Level of care change) atenoloL (TENORMIN) 25 mg tabletIndications: Benign essential HTN Take 1 Tablet (25 mg) by mouth once daily. 90 Tablet 3 5 025 Discontin ued(*Med complete/ Regimen complete/ Level of care change) amLODIPine (NORVASC) 5 mg tabletIndications: Benign essential HTN Take 1 Tablet (5 mg) by mouth once daily. 90 Tablet 3 5 025 Discontin ued(*Hector rgic/Adve rse Rxn/Side Effects) carvediloL (COREG) 6.25 mg tabletIndications: Benign essential HTN Take 1 Tablet (6.25 mg) by mouth two times daily with meals. 60 Tablet 3 5 025 Discontin ued(Reord er (E-cancel not sent)) Active Problems Problem Noted Date Diagnosed Date [...] Encounters Date Type Department Care Team Description 02/26/2025 8:55 AM CDT Office Visit [facility] [address] [place] [address] Kevin Mccoy MD Follow Up (Blood pressure ) 02/26/2025 Travel 02/20/2025 Telephone [facility] [place] [address] [address] Kevin Mccoy MD Form 02/19/2025 11:00 AM CDT Office Visit [facility] [place] [address] [address] Jj Davila MD Follow Up (Knee [id number] states she aches all over) 02/19/2025 Travel 01/30/2025 Orders Only [facility] [address] Kevin Mccoy MD <No scans attached> 01/29/2025 8:55 AM CDT Office Visit [facility] [address] Kevin Mccoy MD Medicare ANNUAL (subsequent) Visit 01/29/2025 8:20 AM CDT Ancillary Procedure [facility] [place] [address] 01/29/2025 Travel 01/26/2025 11:00 AM CDT Office Visit [facility] [place] [address] Letty Velasquez AuD Hearing Aid (SALINAS check) 01/26/2025 Travel 01/12/2025 Travel 01/05/2025 9:30 AM CDT Office Visit [facility] [place] [place]var[facility] [place] [address] Letty Velasquez AuD Hearing Aid (SALINAS check) 01/05/2025 Travel 12/26/2024 Refill [facility] [place] [facility] [place] [address] Jj Davila MD Refill Request (Prednisone) 12/25/2024 Refill [facility] [place] [address] Jj Davila MD Refill Request (Prednisone) 12/22/2024 9:30 AM CDT Office Visit [facility] [place] [address] Letty Velasquez AuD Hearing Aid (SALINAS fitting) 12/22/2024 Travel from Last 3 Months Immunizations Immunization Administration Dates Next Due COVID-19 vaccine ([employer] 30mcg/0.3mL) 12YO+ BIVALENT PF, MDV 11/24/2022 DT (Age < 7 years) 11/27/2003 Influenza A (H1N1), Inactivated 06/01/2009 Influenza RIV4 (Age 18+ Year s) PRESERV FREE 02/21/2020,04/04/2019 Influenza Virus, Unspecified 03/04/2014,03/19/20 13 Influenza, High-dose Inactivated 025,03/15/2018,03/13/2018,03/20,04/17/2016,04/14/2015 Influenza, High-dose Quadriv alent Inactivated 04/03/2023,03/27/2022,04/05/2021 Influenza, IIV4 06/01/2009 Influenza, Inactivated IIV3 (Age 65+ Years) Preserv Free 02/26/2025 Pneumococcal Conj 20-valent (Prevnar 20) 12/19/2023 Pneumococcal [...] isolated from those around you? 0 12/19/2023 Alcohol Use Answer Date Recorded How often do you have a drink containing alcohol ? 3 02/26/2025 How many drinks containing a lcohol do you have on a typical day when you are drinking? 0 02/26/2025 How often do you have five or more drinks on one occasion? 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 INSTRUCTOR Gender Identity Not on file Sexual Orientation Not on file Obstetrics History Last Filed Vital Signs Vital Sign Reading Time Taken Comments Blood Pressure 144/62 02/26/2025 9:19 AM CDT Pulse 91 02/26/2025 9:07 AM CDT Temperature 36.7 C (98 F) 02/19/2025 11:06 AM CDT Respiratory Rate 18 10/31/2018 10:30 AM CDT Oxygen Saturation 100% 02/26/2025 9:07 AM CDT Inhaled Oxygen Concentration - - Weight 73.6 kg (162 lb 3.2 oz) 02/26/2025 9:07 A M CDT Height 157.5 cm (5' 2) 01/29/2025 8:48 AM CDT Body Mass Index 29.67 01/29/2025 8:48 AM CDT Plan of Treatment Upcoming Encounters Date Type Department Care Team (Late st Contact Info) Description 03/26/2025 9:45 AM DENTAL TECHNICIAN INSTRUCTOR Office Visit [facility] [address] [place] [address] Kevin Mccoy MD [address] [place] [address] [address] Health Maintenance Due Date Last Done Comments Tetanus booster 04/14/2025 04/14/2015 BMI (ht and [...] DEXA/DXA scan for age 65+ Completed 12/25/2023, Influenza Vaccine Completed 02/26/2025, , 02/21/2020, Additional history exists Hepatitis B series for 19+ Aged Out N o longer eligible based on patient's age to complete this topic Medical Devices Implanted Type Area Inventory Control Supervisor Device Identifier Shelf Expiration Date Model / Serial / Lot Iol Torrance +22.5 Tecnis Zcb00 - [id number] Implanted:Qty: 1 on 09/12/2018 by Surya Comer Jr., MD at [facility] Right: Eye [employer] 08/15/2021 ZCB00 22.5# / [id number] / Iol [place] +23 Tecnis Zcb00 - [id number] Implanted:Qty: 1 on 10/31/2018 by Surya Comer Jr., MD at [facility] Left: Eye [employer] 03/18/2022 ZCB00 23.0# / [id number] / Procedures Procedure Name Priority Date/Time Associated [...] Mccoy MD CHEMISTRY Final Result [facility] [address] [address], * (ABNORMAL) LIPID PANEL W REFLEX MEASURED [...] 2.7 <5.0 (calc) 01/30/2025 4:00 AM CDT [facility] LDL-CHOLESTEROL 113(H) mg/dL (calc) 01/30/2025 4:00 AM CDT [facility] Comment: Reference range: <100 Desirable range <100 mg/dL for primary prevention; <70 mg/dL for patients with CHD or diabetic patients with > or = 2 CHD risk factors. LDL-C is now calculated using the Edenilson calculation, which is a validated novel method providing better accuracy than the Friedewald equation in the estimation of LDL-C. Jayden SS et al. ALTAGRACIA. 2013;310(19): 8262-4699 (http://education.OneTok.[employer]/faq/SXT658) Blood BLOOD SPECIMEN / Unknown [facility] / Unknown 01/29/2025 9:30 AM CDT 01/29/2025 9:30 AM CDT Kevin Mccoy MD CHEMISTRY Final Result [facility] [address] [address], * VITAMIN D 25 (DEFICIENCY) (01/29/2025 9:30 AM CDT) VITAMIN D,25-OH,TOTAL,IA 33 30 - 100 ng/mL 01/30/2025 5:38 AM CDT [facility] Comment: Vitamin D Status 25-OH Vitamin D: Deficiency: <20 ng/mL Insufficiency: 20 - 29 ng/mL Optimal: > or = 30 ng/mL For 25-OH Vitamin D testing on patients on D2-supplementation and patients for whom quantitation of D2 and D3 fractions is required, the QuestAssureD(TM) 25-OH VIT D, (D2,D3), LC/MS/MS is recommended: order code 50143 (patients >2yrs). See Note 1 Note 1 For additional information, please refer to http://education.OneTok.[employer]/faq/JSM030 (This link is being provided for informational/ educational purposes only.) Blood BLOOD SPECIMEN / Unknown [facility] / Unknown 01/29/2025 9:30 AM CDT 01/29/2025 9:30 AM CDT Kevin Mccoy MD SEND OUTS Final Result [facility] [address] [place] [address], * (ABNORMAL) BASIC METABOLIC PANEL (01/29/2025 9:30 AM CDT) SODIUM 129(L) 135 - 146 mmol/L 01/30/2025 4:00 AM CDT [facility] POTASSIUM 4.0 3.5 - 5.3 mmol/L 01/30/2025 4:00 AM CDT [facility] CARBON DIOXIDE 31 20 - 32 mmol/L 01/30/2025 4:00 AM CDT [facility] GLUCOSE 90 65 - 99 mg/dL 01/30/2025 4:00 AM CDT [facility] Comment: Fasting reference interval CALCIUM 10.2 8.6 - 10.4 mg/dL 01/30/2025 4:00 AM CDT [facility] CREATININE 0.82 0.60 - 0.95 mg/dL 01/30/2025 4:00 AM CDT [facility] BUN/CREATININE RATIO SEE NOTE: 6 - 22 (calc) 01/30/2025 4:00 AM CDT [facility] Comment: Not Reported: BUN and Creatinine are within reference range. EGFR 68 > OR = 60 mL/min/1. 73m2 01/30/2025 4:00 AM CDT [facility] UREA NITROGEN (BUN) 13 7 - 25 mg/dL 01/30/2025 4:00 AM CDT [facility] ELECTROLYTE BALANCE 6(L) 7 - 17 mmol/L (calc) 01/30/2025 4:00 AM CDT [facility] CHLORIDE 92(L) 98 - 110 mmol/L 01/30/2025 4:00 AM CDT [facility] Blood BLOOD SPECIMEN / Unknown [facility] / Unknown 01/29/2025 9:30 AM CDT 01/29/2025 9:30 AM CDT Kevin Mccoy MD CHEMISTRY Final Result [facility] [address] [address], * XR MAMMO SANDEEP BILAT SCREEN (01/29/2025 [...] care provider. XR MAMMO SANDEEP BILAT SCREEN [[id number]] CLINICAL HISTORY: This is an asymptomatic 89 y.o. patient. INDICATION FOR EXAM: Mammogram Screening. TECHNIQUE: CC and MLO views were obtained. This study was evaluated with the assistance of Computer-Aided Detection. Breast Tomosynthesis was used in interpretation. COMPARISON FILM: Yes 12/19/23 [facility] 11/23/22 [facility] FINDINGS: There are scattered areas of fibroglandular [...] to assess therapeutic efficacy. Chata Valle PA-C [facility] 01/01/2024 Narrative 01/01/2024 3:07 PM CDT For Patients: Results are automatically released to your [facility] ([employer]) account once available, in compliance with federal regulations. This means that you may see your results before your provider has had a chance to review them. Please allow 2-3 business days for your provider to comment on the results. XR DXA Bone Mineral Density (BMD) EXAM LOCATION: [address] [address] PATIENT NAME: Amanda Claros DATE OF : [...] two scanners are made by the same dental nurse. PROCEDURE: Dual-energy x-ray absorptiometry performed with [...] 9:08 AM 09/22/2013 2:22 PM Care Teams Salad Maker Relationship Specialty Start Date End Date Kevin Mccoy MD [address] [place] [address] PCP - General Family Practice 08/01/21
--- OUTSIDE RECORDS SUMMARY | 2025-03-18 07:00 | XMS_ITS | Encounter Summary ---
Author Organization [facility] Address [address] [place] [address] Care Team Providers Care Supervisor Endless Track Vehicle Name Role Phone Elsewhere, Pcp Primary Care Provider Unavailabl e Encounter Details Date Type Department Care Team (Late st Contact Info) Description 07/09/2015 Historical Ophthalmology [facility] Suyra Comer Jr., M.D. [address], [place] [address] Social History Tobacco Use Types Packs/Day Years Used Date Smoking Tobacco: Never Assessed Comments Unknown Sex and Gender Information Value Date Recorded Sex Assigned at Not on file Legal Sex Female 7:26 PM [employer] Gender Identity Not on file Sexual Orientation [...] MD today. CDM Reports - EYEGEN Id: [id number] Status: Fnl documented in this encounter Plan of Treatment Not on file documented as of this encounter Visit Diagnoses Not on filedocumented in this encounter Additional Health Concerns Assessment Noted Time PHQ-9 Depression Total Score: 2 04/14/20 15 10:28 AM [employer] documented as of this encounter Care Teams Supervisor Endless Track Vehicle Relationship Specialty Start Date End Date Elsewhere, Pcp PCP - General Family Medicine 11/11/20 documented as of this encounter
--- OUTSIDE RECORDS SUMMARY | 2025-03-18 07:00 | XMS_ITS | Encounter Summary ---
Author Organization [facility] Address [address] [place] [address] Care Team Providers Care Livestock Haulier Name Role Phone Elsewhere, Pcp Primary Care Provider Unavailabl e Encounter Details Date Type Department Care Team (Late st Contact Info) Description 07/20/2015 Historical Ophthalmology [facility] Surya Comer Jr., M.D. [address] [place] [id number] Social History Tobacco Use Types Packs/Day Years Used Date Smoking Tobacco: Never Assessed Comments Unknown Sex and Gender Information Value Date Recorded Sex Assigned at Not on file Legal Sex Female 7:26 PM CUSTOMER ACCOUNT REPRESENTATIVE Gender Identity Not on file Sexual [...] dry, drusen CDM Reports - EYEGEN Id: [id number] Status: Fnl documented in this encounter Plan of Treatment Not on file documented as of this encounter Visit Diagnoses Not on filedocumented in this encounter Additional Health Concerns Assessment Noted Time PHQ-9 Depression Total Score: 2 04/14/20 15 10:28 AM CUSTOMER ACCOUNT REPRESENTATIVE documented as of this encounter Care Teams Livestock Haulier Relationship Specialty Start Date End Date Elsewhere, Pcp PCP - General Family Medicine 11/11/20 documented as of this encounter
--- OUTSIDE RECORDS SUMMARY | 2025-03-18 07:00 | XMS_ITS | Clinical Summary ---
Author Organization [facility] Address [address] [place] [id number] Care Team Providers Care Forestry Foreman Name Role Phone Elsewhere, Pcp Primary Care Provider Unavailabl e Source Comments Patient records contain information from all sites at [facility]. For routine questions regarding patient records, call [phone] during business hours, M-F 8:00 AM - 5:00 PM Central Time. Record requests for emergency care only can be directed to [phone] at any time.[facility] Allergies Active Allergy Reactions Criticality Noted [...] CDT Comprehensive Visit Department of Ophthalmology in [place], [place] [address] [place] [phone] Surya Comer Jr., M.D. Brow Ptosis Bilateral [...] on file Legal Sex Female 7:26 PM FINANCIAL REPORTING ACCOUNTANT Gender Identity Not on file Sexual Orientation Not on file Last Filed Vital Signs Vital Sign Reading Time Taken Comments Blood Pressure 180/85 04/22/2024 10:30 AM FINANCIAL REPORTING ACCOUNTANT Pulse 73 04/22/2024 10:30 AM FINANCIAL REPORTING ACCOUNTANT Temperature 36.8 C (98.2 F) 02/08/2021 1:15 PM CDT Respiratory Rate 16 02/01/2016 1:20 PM CDT Oxygen Saturation 98% 02/08/2021 2:02 PM CDT Inhaled Oxygen Concentration - - Weight 72.4 kg (159 lb 9.8 oz) 04/22/2024 10:30 AM FINANCIAL REPORTING ACCOUNTANT Height 162 cm (5' 3.78) 04/22/2024 10:30 AM FINANCIAL REPORTING ACCOUNTANT Body Mass Index 27.59 04/22/2024 10:30 AM FINANCIAL REPORTING ACCOUNTANT Plan of Treatment Health Maintenance Due Date [...] this topic Medical Devices Implanted Type Area Health Care Coach Device Identifier Shelf Expiration Date Model / Serial / Lot Hardware E.G. Pins/Screws/R ods Hardware e.g. pins/screws/ rods Left: Ankle Ocular Lens Ocular Lens Bilateral: Cornea Procedures Procedure Name Priority Date/Time Associated Diagnosis Comments BASIC METABOLIC PANEL, S/P Routine 04/14/2015 11:13 AM FINANCIAL REPORTING ACCOUNTANT from Last 3 Months or Most Recently Relevant to Health Maintenance Results * (ABNORMAL) BMP (Basic Metabolic Panel) (04/14/2015 11:13 AM FINANCIAL REPORTING ACCOUNTANT) BUN (Blood Urea Nitrogen), S 18 6 [...] 5.2 MMOLL POWERCHART HXeGFR (MDRD) 53(L) >=60 [id number] POWERCHART eGFR Black/ >60 >=60 [id number] POWERCHART Blood 04/14/2015 11:1 3 AM FINANCIAL REPORTING ACCOUNTANT Rc Hilton M.D. LAB BLOOD ADD-ON Final Res ult POWERCHART from Last 3 Months or Most Recently Relevant to Health Maintenance Insurance MEDICARE [facility] Care Teams Forestry Foreman Relationship Specialty Start Date End Date Elsewhere, Pcp PCP - General Family Medicine 11/11/20
[2025-03-18 07:17] VITALS: BP 209/90; PULSE 73; RESP 18; TEMP 36.2; O2SAT 98; BMI 29.4
[2025-03-18 07:48] VITALS: BP 187/89
[2025-03-18] MEDS: AMLODIPINE 5 MG TABLET PO (08:02)
--- NOTE | 2025-03-18 08:15 | ED.GENADULT ---
HPI - General Adult General Chief complaint: Hypertension Stated complaint: elevated blood pressure Time Seen by Provider: 03/18/25 07:09 Source: patient Mode of arrival: ambulatory Limitations: no limitations History of Present Illness HPI narrative: 89-year-old female presents to the ED with asymptomatic elevated blood pressure. She took her blood pressure prior to taking her morning meds this morning and it was noted to be in the 190s, 200 systolic here. There is no stroke-like symptoms, no chest pain, no neurological changes, no headache. She was evaluated in the ED 3 weeks ago for similar symptoms. Her primary care team and the ED have both been working to adjust her medications. She was taken off of her atenolol, transitioned onto Coreg, dose was increased about 10 days ago she believes, she reports good compliance with her medications. Hydrochlorothiazide was also discontinued. No palpitations, no tachycardia, no dizziness. Feeling otherwise well. No fevers or signs of systemic illness. She did not try any other interventions besides taking her morning medications. ED note from 02/20 reviewed. Had labs performed at that visit showing normal electrolytes and renal function. Workup reviewed. Has pending primary care appointment in 12 days. ROS is notable for the elevated blood pressure, asymptomatic otherwise benign times 12 systems. History notable for hypertension, gout, hyperlipidemia. Medications accurate as listed. Related Data Home Medications ?Medication ?Instructions ?Recorded ?Confirmed famotidine 20 mg tablet mg PO 03/11/23 09/19/24 prednisone 10 mg tablet 10 mg PO DAILY 09/19/24 03/18/25 Previous Rx's ?Medication ?Instructions ?Recorded lisinopril 40 mg tablet 40 mg PO QDAY #30 tabs 12/26/21 pravastatin 20 mg tablet 20 mg PO .HS #30 tabs 01/10/22 amlodipine 2.5 mg tablet 2.5 mg PO DAILY #90 tabs 03/18/25 carvedilol 25 mg tablet 25 mg PO BID #180 tabs 03/18/25 Allergies Allergy/AdvReac Type Severity Reaction Status Date / Time Sulfa (Sulfonamide Allergy Mild Rash Verified 11/17/24 05:25 Antibiotics) amoxicillin Allergy Verified 11/17/24 05:25 PFSH PFSH Medical History Sprain of right wrist ?S63.501A - Unspecified sprain of right wrist, initial encounter (ICD-10) Sprain of left wrist ?S63.502A - Unspecified sprain of left wrist, initial encounter (ICD-10) Mild cognitive impairment (2020) ?G31.84 - Mild cognitive impairment of uncertain or unknown etiology (ICD-10) Irritable bowel syndrome ?K58.9 - Irritable bowel syndrome without diarrhea (ICD-10) Gout ?M10.9 - Gout, unspecified (ICD-10) Pain ?R52 - Pain, unspecified (ICD-10) Adenomatous polyp of colon ?D12.6 - Benign neoplasm of colon, unspecified (ICD-10) History of polymyalgia rheumatica ?Z87.39 - Personal history of other diseases of the musculoskeletal system and connective tissue (ICD-10) Polymyalgia ?M35.3 - Polymyalgia rheumatica (ICD-10) Spondylolisthesis at L4-L5 level ?M43.16 - Spondylolisthesis, lumbar region (ICD-10) Lumbar degenerative disc disease ?M51.36 - Other intervertebral disc degeneration, lumbar region (ICD-10) Scoliosis ?M41.9 - Scoliosis, unspecified (ICD-10) Osteoarthritis of right hip ?M16.11 - Unilateral primary osteoarthritis, right hip (ICD-10) Osteoarthritis of left hip ?M16.12 - Unilateral primary osteoarthritis, left hip (ICD-10) Osteoarthritis of left knee ?M17.12 - Unilateral primary osteoarthritis, left knee (ICD-10) Surgical History Status post blepharoplasty of both eyes (11/2010) ?Z98.890 - Other specified postprocedural states (ICD-10) History of dilation and curettage (2013) ?Z98.890 - Other specified postprocedural states (ICD-10) History of carpal tunnel surgery (07/10/19) ?Z98.890 - Other specified postprocedural states (ICD-10) History of bilateral cataract extraction (~08/2018) ?Z98.41 - Cataract extraction status, right eye (ICD-10) ?Z98.42 - Cataract extraction status, left eye (ICD-10) S/P ORIF (open reduction internal fixation) fracture (05/05/09) ?Z98.890 - Other specified postprocedural states (ICD-10) ?Z87.81 - Personal history of (healed) traumatic fracture (ICD-10) Social History Smoking Status: Never smoker Do you use any of these nicotine containing products: None Second hand tobacco smoke exposure: No How often do you have a drink containing alcohol: never AUDIT-C Alcohol total score: 0 Non-prescribed substance use: denies use Exam Const: Vital Signs, click to edit/add: Vital Signs - 24 hr 03/18/25 07:17 03/18/25 07:48 Temperature 97.1 F L Pulse Rate [Pulse Oximeter] 73 Respiratory Rate 18 Blood Pressure [Ri ght Upper Arm] 209/90 H 187/89 H Pulse Oximetry 98 Oxygen Delivery Me thod Room Air Documenting provider has reviewed patient's vital signs: yes Common normals: no apparent distress and alert Other: Hard of hearing with moderate insight. Friendly and cooperative appears nontoxic HENMT: Common normals: normocephalic and moist oral mucous membranes Head and scalp: normocephalic Eye: General eye: normal appearance of both eyes Neck & C-Spine: Common normals: no lymphadenopathy General: normal visual inspection Resp: Common normals: normal respiratory effort, no use of accessory muscles and clear to auscultation bilaterally Effort & inspection: able to speak in complete sentences Auscultation: clear to auscultation bilaterally Cardio: Common normals: regular rate, regular rhythm, S1 normal heart sound, S2 normal heart sound and no murmurs Rate: regular rate Rhythm: regular rhythm Heart sounds: S1 normal and S2 normal Extremity: Other: No pitting edema. Neuro: Common normals: CN's II-XII intact bilaterally, moves all extremities and no focal motor deficits Sensorium/orientation: alert Speech: speech normal Gait (neuro): normal gait Motor exam: strength 5/5 throughout Psych: Attitude: engaged Activity/motor behavior: appropriate eye contact Attention/concentration: attention grossly intact Skin: Common normals: no rashes or lesions noted General skin exam: no rashes or lesions noted Course Course ED Course: 89-year-old female with long hand standing history of hypertension presenting with elevated blood pressure, asymptomatic. Will obtain EKG. Counseled patient that she really does not need to come to the ED for this unless she is having symptoms of chest pain, shortness of breath, stroke-like symptoms, neuro changes. She was surprised to hear this. I let her know that I do not think we need to repeat her blood work since this has been done multiple times within the last few months, including within the last 3 weeks. We review her home blood pressure readings which she does not bring with her but tells me that they tend to be running 135 to 160s at home. It sounds as though it is time to go ahead and increase her carvedilol. Will increase this to therapeutic dose of 25 mg p.o. b.i.d., send script to pharmacy. Give her an additional 12.5 mg p.o. x1 here in the ED and also add amlodipine 2.5 mg p.o. daily, 1st dose in the ED. Counseled patient that it is very normal at her age for her blood pressure to swing about 50 points. I do not want her recording her blood pressures prior to taking her medications but rather about an hour after. Check these twice daily record them and bring them to her primary care follow-up appointment for further direction. She will continue taking her lisinopril as prescribed. Alarm symptoms reviewed that would warrant ED re-evaluation. She verbalizes understanding and agreement. Written instructions provided. Vital Signs Vital signs: Initial Vital Signs Temperature 97.1 F L 03/18/25 07:17 Temperature Source Temporal Artery Scan 03/18/25 07:17 Pulse Rate 73 03/18/25 07:17 Pulse Rhythm Regular 03/18/25 07:17 Respiratory Rate 18 03/18/25 07:17 Blood Pressure 209/90 H 03/18/25 07:17 Blood Pressure Mean 129 H 03/18/25 07:17 Blood Pressure Position Sitting 03/18/25 07:17 Pulse Oximetry 98 03/18/25 07:17 Oxygen Delivery Method Room Air 03/18/25 07:17 Vital Signs Temperature 97.1 F L 03/18/25 07:17 Pulse Rate 73 03/18/25 07:17 Respiratory Rate 18 03/18/25 07:17 Blood Pressure 209/90 H 03/18/25 07:17 Pulse Oximetry 98 03/18/25 07:17 Oxygen Delivery Method Room Air 03/18/25 07:17 Temperature 97.1 F L 03/18/25 07:17 Pulse Rate 73 03/18/25 07:17 Respiratory Rate 18 03/18/25 07:17 Blood Pressure 187/89 H 03/18/25 07:48 Pulse Oximetry 98 03/18/25 07:17 Oxygen Delivery Method Room Air 03/18/25 07:17 Medications Administered Medications: Discontinued Medications Generic Name Dose Route Start Last Admin Trade Name Ania YATES Reason Stop Dose Admin Amlodipine Besylate 5 mg 03/18/25 07:39 03/18/25 08:02 Amlodipine 5 Mg Tablet PO 03/18/25 07:40 5 mg ONCE ONE Administration Carvedilol 12.5 mg 03/18/25 07:39 03/18/25 08:02 Carvedilol 6.25 Mg Tablet PO 03/18/25 07:40 12.5 mg ONCE ONE Administration Medical Decision Making Lab Data Lab results narrative: Labs reviewed from 02/20 ECG Data Attestation: I personally reviewed and interpreted this ECG as follows: Prior ECG tracings: available for review Interpretation: Sinus rhythm with a rate of 69. Good R-wave progression, normal intervals and axis. No significant ST or T-wave abnormalities. Normal EKG. Discharge Plan Discharge Clinical Impression: Essential hypertension Patient Disposition: Home, Self-Care Condition: Stable Instructions: Hypertension (ED) Additional Instructions: As we discussed, elevated blood pressure without change in symptoms is not really an emergency. I do want you checking your blood pressure twice daily but only after you have taken your medicines by at least an hour. It is normal at your age for your blood pressure to swing around quite a bit but I would like to ideally keep it between about 110 and 150. It sounds like things are starting to get better on your increased dose of carvedilol. I would like to go ahead and increase this to therapeutic dose at 25 mg twice daily. I have sent a new prescription for this but you may use up the ones that you have by taking 2 pills twice daily in the meantime. You will continue taking your lisinopril as prescribed and I also recommend that you start a low dose of amlodipine 2.5 mg once daily. Please keep your follow-up appointment in [address] Mccoy as is scheduled. He will recheck your blood pressure and make further adjustments if they are needed. Remember that if you are having severe chest pain, severe shortness of breath, stroke-like symptoms or other findings with very elevated blood pressure, though should be evaluated in emergency room. But the elevated blood pressures allow our something to make note of, record and follow-up with your regular doc if they persist. Activity Level: No Restrictions Discharge Diet: Regular Prescriptions: New carvedilol 25 mg tablet 25 mg PO BID Qty: 180 3RF Rx Instructions: must administer with a meal/food amlodipine 2.5 mg tablet 2.5 mg PO DAILY Qty: 90 2RF Discontinued carvedilol 12.5 mg tablet 12.5 mg PO BID No Action prednisone 10 mg tablet 10 mg PO DAILY famotidine 20 mg tablet PO lisinopril 40 mg tablet 40 mg PO QDAY Qty: 30 0RF pravastatin 20 mg tablet 20 mg PO .HS Qty: 30 0RF Follow Up/Referrals: Kevin Mccoy MD [Primary Care Provider, Family Practice] Stand Alone Forms: Silk Info Instructions
[2025-03-18 08:48] VITALS: BP 177/97
== END 2025-03-18 08:50 | disposition home or self-care (01) ==
PROVIDERS: Emergency Provider Family Medicine; PCP Family Medicine
DX: I10 Essential (primary) hypertension (principal); Z79.899 Other long term (current) drug therapy
CPT/HCPCS: 93005; 99283; 99284; A9270